=== PATIENT | male | born 1950 ===

== ENCOUNTER 2016-08-09 10:57 | Emergency (ER) | payer BC ==
[2016-08-09 11:10] VITALS: BMI 28.4
[2016-08-09 11:11] VITALS: RESP 18; O2SAT 97
--- NOTE | 2016-08-09 11:54 | C.PDOC ---
History Of Present Illness 66 y/o male with no known medical problems c/o mostly dry cough x 1 week with shortness of breath. pt denies fever and chills, no chest pain. pt is not a smoker. denies sore throat, myalgias,ear pain. and pt also c/o bilateral lower back pain for 2-3 weeks that is worse with movement, no numbness or tingling. no trauma. Time Seen by Provider: 08/09/16 11:13 Chief Complaint (Nursing): Cough, Cold, Congestion History Per: Patient History/Exam Limitations: no limitations Onset/Duration Of Symptoms: Days (7) Current Symptoms Are (Timing): Still Present Associated Symptoms: denies: Fever, Chills, Sore Throat Past Medical History Reviewed: Historical Data, Nursing Documentation, Vital Signs Vital Signs: Last Vital Signs Temp 98.4 F 08/09/16 11:10 Pulse 98 H 08/09/16 11:10 Resp 18 08/09/16 11:10 BP 133/83 08/09/16 11:10 Pulse Ox 97 08/09/16 13:07 - Medical History PMH: No Chronic Diseases Surgical History: No Surg Hx Family History: States: Unknown Family Hx - Social History Hx Tobacco Use: No Hx Alcohol Use: No Hx Substance Use: No - Immunization History Hx Tetanus Toxoid Vaccination: No Hx Influenza Vaccination: No Hx Pneumococcal Vaccination: No Review Of Systems Constitutional: Negative for: Fever, Chills ENT: Positive for: Other (hoarse voice). Negative for: Ear Pain, Nose Discharge , Mouth Pain, Throat Pain Cardiovascular: Negative for: Chest Pain Respiratory: Positive for: Cough, Shortness of Breath. Negative for: Hemoptysis , Pleuritic Pain Gastrointestinal: Negative for: Nausea, Vomiting, Abdominal Pain Skin: Negative for: Rash Neurological: Negative for: Weakness, Numbness Physical Exam - Physical Exam Appears: Non-toxic, No Acute Distress Skin: Normal Color, Warm, Dry Head: Atraumatic, Normacephalic Ear(s): Left: TM Dull, Right: TM Obscured By Wax Nose: Normal, No Discharge Oral Mucosa: Moist Tongue: Normal Appearing Lips: Normal Appearing Throat: Normal, No Erythema, No Exudate Neck: Normal ROM Chest: Symmetrical, No Deformity, No Tenderness Cardiovascular: Rhythm Regular, No Murmur Respiratory: No Accessory Muscle Use, No Rales, No Rhonchi, No Stridor, No Wheezing, Other (mild prolonged expiratory sounds) Gastrointestinal/Abdominal: Normal Exam, Soft, No Tenderness Back: Normal Inspection, No Vertebral Tenderness, No Paraspinal Tenderness Extremity: No Pedal Edema, No Calf Tenderness Neurological/Psych: Oriented x3, Normal Speech, Normal Cognition, Normal Motor, Normal Sensation ED Course And Treatment O2 Sat by Pulse Oximetry: 97 - Other Rad CXR X-Ray: Viewed By Me, Read By Radiologist Interpretation: HISTORY: Shortness of breath. Dry cough. COMPARISON: No prior. TECHNIQUE: Chest PA and lateral. FINDINGS: LUNGS: No focal infiltrate or effusion. Mild right hilar prominence. Small nodular density at the left lung base may represent confluence of shadows with ribs and vessels. Correlation with prior study if available may be helpful. PLEURA: No significant pleural effusion identified. No pneumothorax apparent. CARDIOVASCULAR: Normal. OSSEOUS STRUCTURES: No significant abnormalities. VISUALIZED UPPER ABDOMEN: Normal. OTHER FINDINGS: None. IMPRESSION: No focal infiltrate or effusion. Mild right hilar prominence. Small nodular density at the left lung base may represent confluence of shadows with ribs and vessels. Correlation with prior study if available may be helpful. Medical Decision Making Medical Decision Making: pt to go for cxr; 1257 pm; cxr neg for infliltrate and effusion; small nodular density seen in left lung base; radiologist recommends correlation with prior study, none available. pt informed of finding and advised to f/u in Medical clinic for general check up and repeat chest xray. Disposition Counseled Patient/Family Regarding: Studies Performed, Diagnosis, Need For Followup - Disposition Referrals: [facility] [Outside] [facility] [Outside] Disposition: HOME/ ROUTINE Disposition Time: 13:04 Condition: GOOD Additional Instructions: Hogan radiografa de trax no muestra infeccin que requiera antibiticos. Hay jesus pequea densidad observada en el pulmn inferior diane; Recomendar comparar con un estudio previo. Ya que no hay ningn estudio previo disponible, se recomienda que usted whitney un seguimiento en la [facility] en la prxima semana para jesus evaluacin adicional de la tos y para jesus repeticin de la radiografa de trax Instructions: Acute Bronchitis (ED) Forms: Gen Discharge Inst Jordanian Print Language: SYRIAC - Clinical Impression Clinical Impression: Bronchitis
--- NOTE | 2016-08-09 12:47 | RAD ---
HISTORY: Shortness of breath. Dry cough. COMPARISON: No prior. TECHNIQUE: Chest PA and lateral FINDINGS: LUNGS: No focal infiltrate or effusion. Mild right hilar prominence. Small nodular density at the left lung base may represent confluence of shadows with ribs and vessels. Correlation with prior study if available may be helpful. PLEURA: No significant pleural effusion identified. No pneumothorax apparent. CARDIOVASCULAR: Normal. OSSEOUS STRUCTURES: No significant abnormalities. VISUALIZED UPPER ABDOMEN: Normal. OTHER FINDINGS: None. IMPRESSION: No focal infiltrate or effusion. Mild right hilar prominence. Small nodular density at the left lung base may represent confluence of shadows with ribs and vessels. Correlation with prior study if available may be helpful.
[2016-08-09 14:14] VITALS: BP 128/78; PULSE 92; TEMP 98.1
== END 2016-08-09 13:15 | disposition home or self-care (01) ==
LOC: C.ER 10:57
DX: J40 Bronchitis, not specified as acute or chronic (principal)

== ENCOUNTER 2016-09-17 13:36 | Inpatient (IN) | payer BC ==
[2016-09-17 13:50] VITALS: BMI 21.3
[2016-09-17] MEDS ORDERED: Sodium Chloride 0.9% 500 ML IV ONE (15:01)
--- NOTE | 2016-09-17 15:11 | C.PDOC ---
Addendum entered and electronically signed by Eliza Feliciano PA 09/17/16 19: 02: Addendum Addendum: 09/17/16 19:02 EKG: NSR [address] elevations Original Note: History Of Present Illness <Eliza Feliciano - Last Filed: 09/17/16 19:02> <Rose Knapp - Last Filed: 09/17/16 20:51> 66 yr old male bought in by family member, presents to the ER stating for the past 2 weeks c/o SOB. Also notes patient notes decreased PO intake, only want to sleep. Recent diagnoses with Bronchitis. Currently patient is on [place] oxygen and states he feels better with it. Denies fever, chest pain, abd pain, rash, headache, weakness or numbness. (Eliza Feliciano) History Per: Patient, Family, Telephone Worker History/Exam Limitations: language barrier Onset/Duration Of Symptoms: Days (2 weeks) <Eliza Feliciano - Last Filed: 09/17/16 19:02> <Rose Knapp - Last Filed: 09/17/16 20:51> Time Seen by Provider: 09/17/16 14:42 Chief Complaint (Nursing): Shortness Of Breath Past Medical History Reviewed: Historical Data, Nursing Documentation, Vital Signs Family History: States: No Known Family Hx - Social History Hx Tobacco Use: No Hx Alcohol Use: No Hx Substance Use: No - Immunization History Hx Tetanus Toxoid Vaccination: No Hx Influenza Vaccination: No Hx Pneumococcal Vaccination: No <Eliza Feliciano - Last Filed: 09/17/16 19:02> Review Of Systems Except As Marked, All Systems Reviewed And Found Negative. Constitutional: Positive for: Weakness, Other ((+) Drowsy. ). Negative for: Fever Cardiovascular: Negative for: Chest Pain Respiratory: Positive for: Shortness of Breath Neurological: Negative for: Weakness, Numbness, Headache <Eliza Feliciano - Last Filed: 09/17/16 19:02> Physical Exam - Physical Exam Appears: No Acute Distress, Other ((+) Sleepy. 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, s/p trauma)) Nose: Normal Oral Mucosa: Moist Throat: Normal, No Erythema, No Exudate Neck: Normal ROM, Supple Chest: Symmetrical, No Tenderness Cardiovascular: Rhythm Regular, No Murmur Respiratory: Normal Breath Sounds, No Rales, No Rhonchi, No Wheezing Gastrointestinal/Abdominal: Normal Exam, Soft, No Tenderness Back: No CVA Tenderness, No Vertebral Tenderness Extremity: Normal ROM, No Swelling Neurological/Psych: Oriented x3, Normal Speech <Eliza Feliciano - Last Filed: 09/17/16 19:02> ED Course And Treatment - Laboratory Results Result Diagrams: 09/17/16 15:13 09/17/16 15:13 O2 Sat by Pulse Oximetry: 90 (RA) - Other Rad CXR X-Ray: Viewed By Me, Read By Radiologist Interpretation: HISTORY: Shortness of breath. COMPARISON: No prior. TECHNIQUE: Chest PA and lateral. FINDINGS: LUNGS: 08/09/2016 the lungs are well inflated and clear. PLEURA: No significant pleural effusion identified. No pneumothorax apparent. CARDIOVASCULAR: Normal. OSSEOUS STRUCTURES: No significant abnormalities. VISUALIZED UPPER ABDOMEN: Normal. OTHER FINDINGS: None. IMPRESSION: No active pulmonary disease. - CT Scan/US CT - Angio Chest Other Rad Studies (CT/US): Read By Radiologist, Radiology Report Reviewed CT/US Interpretation: CTA chest PE protocol. Indication: Shortness of breath, chest pain, upper back pain, weakness. Technique: Contiguous axial images were obtained through the chest with intravenous contrast enhancement. Sagittal and coronal reconstructions were generated and reviewed. This CT exam was performed using 1 or more of the falling dose reduction techniques: Automated exposure control, adjustment of the MAA and/or kV according to patient size, and /or use of iterative reconstruction technique. IV Contrast: 100 mL Visipaque. . Radiation dose (DLP): 510.32 MGy-cm. Comparison: Chest x-ray performed . Findings: Limited visualized portions of the inferior thyroid gland appear unremarkable. The mediastinal and hilar vascular structures appear within normal limits. The heart appears within normal limits of size. No large central or segmental pulmonary embolus evident. Mild left upper lobe and bibasilar atelectasis. No pleural effusion. No pneumothorax. 3 mm right middle lobe nodule appears intrafissural (series 4, image 57). Limited visualized portions of the upper abdomen demonstrates hypoattenuation of the liver consistent with hepatic steatosis. Several low-density lesions within the liver , possibly cysts or hemangiomas; dedicated liver protocol may be considered for more definitive characterization. Mild degenerative changes of the spine. Impression: No large central or segmental pulmonary embolus identified. Mild left upper lobe and bibasilar atelectasis. 3 mm right middle lobe nodule appears intrafissural. Hepatic steatosis. Several low-density lesions within the liver, possibly cysts or hemangiomas; dedicated liver protocol may be considered for more definitive characterization. Progress Note: PLAN: CT - Angio Chest, CXR, EKG, ABG, VBG, Drug Screen, Troponin , D-Dimer, CBC, CMP, Urinalysis & Sodium Chloride IV. Pt seen and evaluated by Dr Villa, agreed upon plan and treatment. Case dsicussed with Dr Leal, request ABG and ICU consult. Case endorse to dr Luz pending ABG and dispo <Eliza Feliciano - Last Filed: 09/17/16 19:02> - Laboratory Results Result Diagrams: 09/17/16 15:13 09/17/16 15:13 Pulse Ox Interpretation: Abnormal Progress Note: spoke with dr matthew and dr peñaloza for icu admission. Both at bedside with the patient. <Rose Knapp - Last Filed: 09/17/16 20:51> Disposition - Disposition Disposition Time: 19:01 <Eliza Feliciano - Last Filed: 09/17/16 19:02> <Rose Knapp - Last Filed: 09/17/16 20:51> - Disposition Disposition: HOSPITALIZED Condition: STABLE - Clinical Impression Clinical Impression: Hypoxia - PA / MOSAIC TECHNICIAN / Resident Statement MD/DO has reviewed & agrees with the documentation as recorded. - Scribe Statement The provider has reviewed the documentation as recorded by the Scribe <Eliza Feliciano - Last Filed: 09/17/16 19:02> <Rose Knapp - Last Filed: 09/17/16 20:51> - Scribe Statement Lena Rodrigeuz All medical record entries made by the Scribe were at my direction and personally dictated by me. I have reviewed the chart and agree that the record accurately reflects my personal performance of the history, physical exam, medical decision making, and the department course for this patient. I have also personally directed, reviewed, and agree with the discharge instructions and disposition. (Eliza Feliciano)
[2016-09-17 15:17] LABS: BASO % 0.3 % (0.0-2.0); EOS % 0.2 % (0.0-4.0); HEMATOCRIT 41.6 % (35.0-51.0); LYMPH # 1.1 K/uL (1.0-4.3); LYMPH % 15.3 % (20.0-40.0); MEAN CELL VOLUME 92.7 fL (80.0-94.0); MEAN CORPUSCULAR HEMOGLOBIN 29.4 pg (27.0-31.0); MEAN CORPUSCULAR HGB CONC 31.7 g/dL (33.0-37.0); MONO # 0.6 K/uL (0.0-0.8); RED CELL DISTRIBUTION WIDTH 13.8 % (11.5-14.5); WHITE BLOOD COUNT 7.3 K/uL (4.8-10.8)
[2016-09-17] MEDS ORDERED: Sodium Chloride 0.9% 1,000 ML ONE (15:27)
[2016-09-17 15:29] LABS: VENOUS BLOOD GAS BASE EXCESS 14.2 mmol/L (0.0-2.0); VENOUS BLOOD GAS PCO2 112 mmHg (40-60); VENOUS BLOOD PH 7.23 (7.32-7.43)
[2016-09-17 15:36] LABS: CHLORIDE 90 mmol/L (98-107)
[2016-09-17 15:36] LABS: RBC URINE < 1 /hpf (0-3); URINE BILIRUBIN NEGATIVE (NEGATIVE); URINE BLOOD NEGATIVE (NEGATIVE); URINE COLOR Yellow (YELLOW); URINE GLUCOSE (UA) NORMAL (Normal); URINE KETONE NEGATIVE (NEGATIVE); URINE LEUKOCYTE ESTERASE NEG Leu/uL (Negative); URINE PROTEIN NEGATIVE (NEGATIVE); URINE UROBILINOGEN NORMAL mg/dL (0.2-1.0); WBC URINE 1 /hpf (0-5)
[2016-09-17 15:37] LABS: POTASSIUM 4.3 mmol/L (3.6-5.2); SODIUM 134 mmol/L (132-148)
[2016-09-17 15:39] LABS: ALB/GLOB RATIO 1.3 (1.0-2.1); ALKALINE PHOSPHATASE 59 U/L (38-126); AST/SGOT 43 U/L (17-59); BILIRUBIN,TOTAL 0.6 mg/dL (0.2-1.3); BLOOD UREA NITROGEN 12 mg/dL (9-20); GFR AFRICAN-AMERICAN > 60; TOTAL PROTEIN 6.6 g/dL (6.3-8.3)
[2016-09-17 15:40] LABS: ALT/SGPT 25 U/L (21-72); CALCIUM 8.4 mg/dl (8.6-10.4); GLUCOSE,RANDOM 107 mg/dL (75-110)
[2016-09-17 15:51] LABS: CARBON DIOXIDE 39 mmol/L (22-30)
--- NOTE | 2016-09-17 16:12 | RAD ---
HISTORY: Shortness of breath COMPARISON: No prior. TECHNIQUE: Chest PA and lateral FINDINGS: LUNGS: 08/09/2016 the lungs are well inflated and clear. PLEURA: No significant pleural effusion identified. No pneumothorax apparent. CARDIOVASCULAR: Normal. OSSEOUS STRUCTURES: No significant abnormalities. VISUALIZED UPPER ABDOMEN: Normal. OTHER FINDINGS: None. IMPRESSION: No active pulmonary disease.
[2016-09-17] MEDS ORDERED: Iodixanol 320 MG/ML 100 ML BOTTLE IV ONE (17:43)
--- NOTE | 2016-09-17 18:29 | CT ---
CTA chest PE protocol Indication: Shortness of breath, chest pain, upper back pain, weakness Technique: Contiguous axial images were obtained through the chest with intravenous contrast enhancement. Sagittal and coronal reconstructions were generated and reviewed. This CT exam was performed using 1 or more of the falling dose reduction techniques: Automated exposure control, adjustment of the MAA and/or kV according to patient size, and/or use of iterative reconstruction technique. IV Contrast: 100 mL Visipaque Radiation dose (DLP): 510.32 MGy-cm. Comparison: Chest x-ray performed 09/17/16 Findings: Limited visualized portions of the inferior thyroid gland appear unremarkable. The mediastinal and hilar vascular structures appear within normal limits. The heart appears within normal limits of size. No large central or segmental pulmonary embolus evident. Mild left upper lobe and bibasilar atelectasis. No pleural effusion. No pneumothorax. 3 mm right middle lobe nodule appears intrafissural (series 4, image 57). Limited visualized portions of the upper abdomen demonstrates hypoattenuation of the liver consistent with hepatic steatosis. Several low-density lesions within the liver, possibly cysts or hemangiomas; dedicated liver protocol may be considered for more definitive characterization. Mild degenerative changes of the spine. Impression: No large central or segmental pulmonary embolus identified. Mild left upper lobe and bibasilar atelectasis. 3 mm right middle lobe nodule appears intrafissural. Hepatic steatosis. Several low-density lesions within the liver, possibly cysts or hemangiomas; dedicated liver protocol may be considered for more definitive characterization.
[2016-09-17 19:13] LABS: ABG ALLEN TEST POS; DRAW SITE RRA
[2016-09-17 21:06] LABS: ABG ALLEN TEST POS; DRAW SITE RRA
[2016-09-17 21:31] LABS: THYROID STIMULATING HORMONE 1.95 mIU/L (0.46-4.68)
--- NOTE | 2016-09-17 21:49 | CP.PCM.CON ---
History of Present Illness - History of Present Illness History of Present Illness: 66 yr old male with no significant PMH,not n meds bought to ER by family for worsening difficulty breathing for the past 2 weeks .Patients apetite has been poor,feeling weak and sleepy. Recent diagnoses with Bronchitis. Denies fever, chest pain, abdominal pain, diarrhea,rash, headache, or numbness. 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 absent: Chills, Fever, Frequent Falls, Headache - EENT Eyes: Loss of Vision. absent: Diplopia, Pain Ears: absent: Decreased Hearing Nose/Mouth/Throat: absent: Nasal Congestion, Post Nasal Drip, Facial Pain, Neck Pain Additional comments: loss of vision left eye >10 yrs - Cardiovascular Cardiovascular: Dyspnea on Exertion. absent: Chest Pain, Edema, Palpitations - Respiratory Respiratory: Cough, Dyspnea. absent: Hemoptysis - Gastrointestinal Gastrointestinal: absent: Abdominal Pain, Constipation, Diarrhea, Fecal Incontinence - Genitourinary Genitourinary: absent: Urinary Incontinence - Musculoskeletal Musculoskeletal: Back Pain. absent: Joint Swelling, Myalgias, Neck Pain, Numbness, Radiating Pain into Limb, Stiffness - Integumentary Integumentary: Bleeding Lesions, Photosensitivity - Neurological Neurological: Weakness. absent: Abnormal Movements, Abnormal Speech, Frequent Falls, Tingling, Vertigo - Endocrine Endocrine: absent: Cold Intolorance, Heat Intolorance - Hematologic/Lymphatic Hematologic: absent: Easy Bleeding Past Patient History - Past Medical History & Family History Past Medical History?: No - Past Social History Smoking Status: Never Smoked Cigar Use: No Alcohol: None Drugs: Denies Home Situation {Lives}: With Family - PSYCHIATRIC Hx Substance Use: No - SURGICAL HISTORY Hx Surgeries: Yes Hx Eye Surgery: Yes (Lt eye) - ANESTHESIA Hx Anesthesia: Yes Hx Anesthesia Reactions: No Meds Allergies/Adverse Reactions: Allergies Allergy/AdvReac Type Severity Reaction Status Date / Time No Known Allergies Allergy Verified 09/17/16 13:49 Physical Exam - Constitutional Appears: In Acute Distress Additional comments: In Er patient drowsy but arousable answering question.In ICU agitated not keeping Oxygen or BIOAP mask on - Head Exam Head Exam: ATRAUMATIC, NORMAL INSPECTION, NORMOCEPHALIC - Eye Exam Eye Exam: absent: Conjunctival injection, Nystagmus, Scleral icterus Additional comments: Left eye lid drooping,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 absent: Chest Wall Tenderness - Cardiovascular Exam Cardiovascular Exam: REGULAR RHYTHM - GI/Abdominal Exam GI & Abdominal Exam: Normal Bowel Sounds, Soft. absent: Organomegaly, Tenderness - Rectal Exam Rectal Exam: Deferred - Extremities Exam Extremities exam: Positive for: normal inspection, pedal pulses present. Negative for: calf tenderness, joint swelling, pedal edema - Back Exam Back exam: NORMAL INSPECTION. absent: CVA tenderness (L) - Neurological Exam Neurological exam: Alert Additional comments: fasciculations upper chest DTR mildly exaggerated moves all extremities no motor weakness - Skin Skin Exam: Dry, Normal Color Results - Vital Signs Recent Vital Signs: Last Vital Signs Temp 98.9 F 09/17/16 13:50 Pulse 81 09/17/16 17:38 Resp 12 09/17/16 17:38 BP 133/89 09/17/16 17:38 Pulse Ox 90 L 09/17/16 19:01 - Labs Result Diagrams: 09/23/16 08:22 09/23/16 08:22 Labs: Laboratory Results - last 24 hr 09/17/16 21:00 Puncture Site Rra pCO2 117 H* pO2 80 HCO3 33.8 H ABG pH 7.19 L* ABG Total CO2 48.3 H ABG O2 Saturation 95.9 ABG Base Excess 11.5 H Piotr Test Pos ABG Potassium 4.2 A-a O2 Difference -12.0 Respiratory Index -0.2 Sodium 135.0 Chloride 98.0 Glucose 103 Lactate 0.3 L FiO2 30.0 Inspiratory BiPAP 12 Expiratory BiPAP 5 Crit Value Called To Dr fernandez Crit Value Called By Minda mak Crit Value Read Back Y Blood Gas Notified Time 2104 Arterial Blood Potassium 4.2 - EKG Data EKG Interpreted by: Myself EKG shows normal: Sinus rhythm Rate: Normal - Imaging and Cardiology CT scan - abdomen Status: Report reviewed by me CT scan - chest Status: Image reviewed by me, Report reviewed by me Chest x-ray Status: Image reviewed by me, Report reviewed by me CT scan - head Status: Image reviewed by me, Report reviewed by me Assessment & Plan - Assessment and Plan (Free Text) Assessment: 1.Hypercapnic Respiratory Failure unknown eitiology-required intubation CT head no acute abnormality.CT chest Mid left upper lobe and bibasilar atelectasis normal TSH,random cortisol Discussed with neurologist,patient will be seen tomorrow for possible neromuscular eitiolgy Continue Ventilatory support
--- NOTE | 2016-09-17 22:09 | CP.PCM.HP ---
History of Present Illness - History of Present Illness History of Present Illness: COMPREHENSIVE HISTORY & PHYSICAL EXAM HPI PT PRESENTED TO ER WITH LETHARGY AND SOMNELENCE . INVESTIGATION REVEALED ACUTE CO2 RETENSION WITH NORMAL CXR . THERE IS NO OTHER HISTORY AVAILABLE AT THIS TIME PAST HIST. PERSONAL HIST: Smoking. N Alcohol. N Allergy N Travel_- . FAMILY HIST : ROS : PT DROSWSY AND CAN NOT ELICITE P/E: Constitutional: Appears stated age and DROWSY Head: Normocephalic. Ears: External ear canals patent without inflammation. Tympanic membranes intact with normal light reflex and landmark. Eyes: Pupils are central, bilaterally equal, symmetrical and reacts to light with normal movements and no icterus or pallor. Nose: External nares are patent. Mucosa is pink Mouth-Throat: Good general appearance and condition. No post-pharyngeal/oropharyngeal erythema and tonsillar hypertrophy. Good dental hygiene. Neck-Lymphatic: Neck is supple with normal ROM, no thyromegaly, lymph nodes or masses. JVD is normal with no carotid bruit. Lungs: Clear to percussion and auscultation with bilateral normal air entry. Cardiovascular: S1 and S2 are normal with no murmurs, gallops and rub. GI Exam: No hepatomegaly. Abdomen is soft and non-tender. No Organomegaly , masses or hernias are evident and bowel sounds are normal and active. Neurology: Higher function and all cranial nerves intact, with no gross motor or sensory deficit. Superficial and deep reflexes are normal with downwards planters. No cerebellar deficit with normal gait. Musculoskeletal: No tender spots with normal curvature of the spine with no swelling or restricted ROM of the small and large joints. Extremities: Homans sign absent. Intact pulses with no pitting edema, calf tenderness or skin color changes. Skin: No rash, eruptions or abnormal skin pigmentation LAB/RADIOLOGY: ASSESMENT : ACUTE RESPIRATORY HYPERCARBIA , ETIOLOGY UNCLEAR PLAN: MAY NEED INTUBATION Present on Admission - Present on Admission Any Indicators Present on Admission: No Past Patient History - Past Social History Smoking Status: Never Smoked - PSYCHIATRIC Hx Substance Use: No - SURGICAL HISTORY Hx Surgeries: Yes Hx Eye Surgery: Yes (Lt eye) - ANESTHESIA Hx Anesthesia: Yes Hx Anesthesia Reactions: No Meds Allergies/Adverse Reactions: Allergies Allergy/AdvReac Type Severity Reaction Status Date / Time No Known Allergies Allergy Verified 09/17/16 13:49 Results - Vital Signs Recent Vital Signs: Last Vital Signs Temp 98.9 F 09/17/16 13:50 Pulse 81 09/17/16 17:38 Resp 12 09/17/16 17:38 BP 133/89 09/17/16 17:38 Pulse Ox 90 L 09/17/16 19:01 - Labs Result Diagrams: 09/18/16 06:29 09/18/16 06:29 Labs: Laboratory Results - last 24 hr 09/17/16 21:00 Puncture Site Rra pCO2 117 H* pO2 80 HCO3 33.8 H ABG pH 7.19 L* ABG Total CO2 48.3 H ABG O2 Saturation 95.9 ABG Base Excess 11.5 H Piotr Test Pos ABG Potassium 4.2 A-a O2 Difference -12.0 Respiratory Index -0.2 Sodium 135.0 Chloride 98.0 Glucose 103 Lactate 0.3 L FiO2 30.0 Inspiratory BiPAP 12 Expiratory BiPAP 5 Crit Value Called To Dr fernandez Crit Value Called By Minda mak Crit Value Read Back Y Blood Gas Notified Time 2104 Arterial Blood Potassium 4.2
[2016-09-17] MEDS ORDERED: Propofol 10 mg/ml Inj (20 ML) ONE (22:33)
[2016-09-17] MEDS ORDERED: Midazolam 2 MG/2 ML VIAL IVP ONE (22:38)
[2016-09-17] MEDS ORDERED: Midazolam 2 MG/2 ML VIAL ONE (22:38)
[2016-09-17] MEDS ORDERED: Propofol 10 mg/ml Inj (20 ML) IV ONE (22:39)
--- NOTE | 2016-09-17 22:49 | PCM.ANES ---
Anesthesia Emergent Intubation - Diagnosis Working Diagnosis:: Hypercapnic respiratory failure - Intubation Attempts Previous Number of Intubation Attempts:: 1 - Pre-Intubation Vital Signs Blood Pressure: 138/82 Heart Rate: 98 Respiratory Rate: 24 O2 Sat: 99 Oxygen Delivery Method: Nasal Cannula Level Of Consciousness: Alert Intubation Meds Given: Versed, Propofol - Airway Management Oropharyngeal Area Suctioned: No - Method of Intubation Intubation Method: Oral ETT ETT Size: 8.0 Easy: Yes Atramatic: Yes - Intubation Devices Sarath Blade Size Used: 3 - Placement Confirmation Breath Sounds Present & Equal Bilaterally: Yes
--- NOTE | 2016-09-17 22:54 | CT ---
EXAM: CT Head Without Intravenous Contrast CLINICAL HISTORY: 66 years old, male; Signs and symptoms; Altered mental status/memory loss; Additional info: Change ms TECHNIQUE: Axial computed tomography images of the head/brain without intravenous contrast. This CT exam was performed using one or more of the following dose reduction techniques: automated exposure control, adjustment of the mA and/or kV according to patient size, and/or use of iterative reconstruction technique. EXAM DATE/TIME: 09/17/2016 8:11 PM COMPARISON: There are no prior studies for comparison. FINDINGS: Brain: Ventricles are normal in size and configuration. There is no midline shift. There is mild prominence of sulci and gyri. There are no intra-axial or extra-axial mass lesions or areas of hemorrhage. There is contrast from a prior study of vascular structures. There are no abnormal fluid collections. Singer-white differentiation is maintained. Ventricles: See above. Bones: Cranial vault is intact. Soft tissues: unremarkable Sinuses: There is no acute sinusitis. 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 Ears and mastoids: Middle ears and mastoids are unremarkable Orbits: There are no acute orbital abnormalities. There are postsurgical changes about the left globe. IMPRESSION: No acute intracranial abnormality
--- NOTE | 2016-09-17 23:01 | CT ---
EXAM: CT Abdomen and Pelvis Without Intravenous Contrast CLINICAL HISTORY: 66 years old, male; Pain; Abdominal pain; Generalized; Additional info: Muscle weakness, hypoxia TECHNIQUE: Axial computed tomography images of the abdomen and pelvis without intravenous contrast. This CT exam was performed using one or more of the following dose reduction techniques: automated exposure control, adjustment of the mA and/or kV according to patient size, and/or use of iterative reconstruction technique. Coronal and sagittal reformatted images were created and reviewed. EXAM DATE/TIME: 09/17/2016 8:11 PM COMPARISON: There are no prior studies for comparison. FINDINGS: Artifacts: Motion artifact degrades image quality. Streak artifact degrades image quality. Lower thorax: Heart size is normal. There is a small hiatal hernia. There is atelectasis and scarring at the lung bases. ABDOMEN: Liver: There are multiple low attenuation hepatic lesions. Largest are consistent with cysts. Gallbladder and bile ducts: Gallbladder is collapsed. Common bile duct is unremarkable. Pancreas: Pancreas is mildly atrophic. Spleen: unremarkable Adrenals: unremarkable Kidneys and ureters: Kidneys are unremarkable. There is contrast from a prior study in nondilated collecting systems and ureters. Stomach and bowel: Stomach is partially distended. Rotation is normal. Proximal and mid small bowel are mildly distended. Distention decreases distally. Appendix is unremarkable. Terminal ileum is unremarkable. There is moderate stool in the colon. There is mild right colon wall thickening.There is a fecal bolus in the rectum. Appendix: See above. PELVIS: Bladder: Bladder is distended with contrast. Reproductive: Prostate is enlarged. There is prominence of the seminal vesicles. ABDOMEN and PELVIS: Intraperitoneal space:There is no free air or free fluid. Bones/joints: There are degenerative changes in the osseus structures. There is retrolisthesis L5 on S1. There is asymmetric L5-S1 disc space narrowing. Soft tissues: unremarkable Vasculature: There are multiple phleboliths. There are vascular calcifications. Lymph nodes: There is no pathologic adenopathy. IMPRESSION: No acute solid visceral abnormality; no bowel obstruction; mild right colon wall thickening, underdistention versus inflammation; fecal impaction; enlarged prostate
[2016-09-17] MEDS: Dexmedetomidine Hydrochloride 200 MCG in Sodium Chloride 0.9% 48 ML IV PRN (23:10)
[2016-09-17] MEDS ORDERED: Calcium Gluconate 4.65 mEq/10 ml Inj IV ONE (23:25)
[2016-09-17] MEDS ORDERED: Dextrose 5%/0.9% NS 1,000 ML IV ONE (23:25)
[2016-09-17] MEDS ORDERED: (Novolin R) Insulin Human Regular 100 units/ml vial SC SCH (23:30)
[2016-09-17] MEDS: Propofol 10 mg/ml 1,000 MG/100 ML VIAL IV PRN (23:30)
[2016-09-17 23:57] LABS: ABG ALLEN TEST POS; ABG MECHANICAL RATE 22; ARTERIAL BLOOD HGB O2 SAT 95.7 % (95.0-98.0); ATERIAL BLOOD GAS PEEP 5; CARBOXYHEMOGLOBIN 0.9 % (0.5-1.5); DRAW SITE RR; HHB 2.1 % (0.0-5.0); METHEMOGLOBIN 1.3 % (0.0-3.0)
[2016-09-18] MEDS: Dexmedetomidine Hydrochloride 200 MCG in Sodium Chloride 0.9% 48 ML IV PRN ×4 (02:54→22:55)
[2016-09-18 05:25] LABS: ABG ALLEN TEST POS; ABG MECHANICAL RATE 14; ARTERIAL BLOOD HGB O2 SAT 93.8 % (95.0-98.0); ATERIAL BLOOD GAS PEEP 5; CARBOXYHEMOGLOBIN 1.1 % (0.5-1.5); DRAW SITE RR; METHEMOGLOBIN 1.1 % (0.0-3.0)
[2016-09-18] MEDS: (Novolin R) Insulin Human Regular 100 units/ml vial SC SCH ×4 (06:00→18:21)
[2016-09-18 06:37] LABS: BASO % 0.2 % (0.0-2.0); HEMATOCRIT 39.3 % (35.0-51.0); LYMPH # 0.8 K/uL (1.0-4.3); LYMPH % 6.8 % (20.0-40.0); MEAN CELL VOLUME 93.1 fL (80.0-94.0); MEAN CORPUSCULAR HEMOGLOBIN 30.3 pg (27.0-31.0); MEAN CORPUSCULAR HGB CONC 32.5 g/dL (33.0-37.0); MEAN PLATELET VOLUME 8.9 fL (7.2-11.7); MONO # 0.7 K/uL (0.0-0.8); MONO % 6.3 % (0.0-10.0); PLATELET COUNT 166 K/uL (130-400); RED CELL DISTRIBUTION WIDTH 13.8 % (11.5-14.5); WHITE BLOOD COUNT 11.3 K/uL (4.8-10.8)
[2016-09-18 06:47] LABS: CHLORIDE 91 mmol/L (98-107); SODIUM 132 mmol/L (132-148)
[2016-09-18 06:48] LABS: POTASSIUM 3.7 mmol/L (3.6-5.2)
[2016-09-18 06:50] LABS: ALB/GLOB RATIO 1.3 (1.0-2.1); ALKALINE PHOSPHATASE 62 U/L (38-126); AST/SGOT 27 U/L (17-59); BLOOD UREA NITROGEN 11 mg/dL (9-20); CARBON DIOXIDE 33 mmol/L (22-30); GFR AFRICAN-AMERICAN > 60; GLUCOSE,RANDOM 120 mg/dL (75-110); PHOSPHOROUS 1.9 mg/dL (2.5-4.5); TOTAL PROTEIN 5.9 g/dL (6.3-8.3)
[2016-09-18 06:51] LABS: ALT/SGPT 29 U/L (21-72); CALCIUM 8.4 mg/dl (8.6-10.4); MAGNESIUM 1.9 mg/dL (1.6-2.3)
[2016-09-18 07:15] LABS: CARCINOEMBRYONIC ANTIGEN 1.7 ng/mL (0-3.0)
[2016-09-18] MEDS ORDERED: Magnesium Sulfate 1 gm in D5W 1 GM/100 ML BAG IVPB ONE (08:14)
[2016-09-18 08:47] LABS: ABG ALLEN TEST POS; ABG MECHANICAL RATE 12; ARTERIAL BLOOD HGB O2 SAT 96.2 % (95.0-98.0); ATERIAL BLOOD GAS PEEP 5; CARBOXYHEMOGLOBIN 1.1 % (0.5-1.5); DRAW SITE RR; HHB 1.5 % (0.0-5.0); METHEMOGLOBIN 1.2 % (0.0-3.0)
[2016-09-18 08:57] LABS: MAGNESIUM 1.9 mg/dL (1.6-2.3)
[2016-09-18 09:40] LABS: NEUTROPHIL 86 % (50-75); TOTAL CELLS COUNTED 100
[2016-09-18] MEDS: Propofol 10 mg/ml 1,000 MG/100 ML VIAL IV PRN (09:41)
[2016-09-18] MEDS ORDERED: Sodium Phosphate 15 MMOLE in Sodium Chloride 0.9% 250 ML IVPB ONE (10:00)
[2016-09-18] MEDS ORDERED: Sodium Chloride 0.9% 1,000 ML IV ONE (11:03)
[2016-09-18 11:04] LABS: ERYTHROCYTE SEDIMENTATION RATE 3 mm/hr (0-15)
[2016-09-18] MEDS ORDERED: Albuterol-Ipratrop 3 mg / 0.5 (3 ml) UD INH PRN (11:29)
[2016-09-18] MEDS ORDERED: Enoxaparin 40 mg Syringe SC ONE (11:30)
--- NOTE | 2016-09-18 11:50 | CP.CCUPN ---
<Rohan Coleman - Last Filed: 09/18/16 11:40> CCU Subjective - Physician Review Subjective (Free Text): 09/18/16 11:40 Patient seen and examined at the bedside. No acute distress. No acute events overnight. Nursing staff reports no issues. The patient was intubated 2/2 to hypercarbia and non-compliance with BiPAP. The patient is currently on sedation. PRVC 400mL, 12/min, 5, 30%. Today on rounds, the patient's vent setting were changed. The TV was increased to 450mL and the respiratory rate was increased to 14/min. The patient's mag and phos were also replaced. Post rounds, the patient was noted to be hypotensive. The patient was started on IVF for fluid challenge. The patient was also given solu-medrol 125mg IV stat and a scheduled dose of solu-medrol 40mg IV q8. The patient was also started on tube feeds with a rate of 30ml/hr. Nutrition was consulted for a goal rate. CCU Objective - Vital Signs / Intake & Output Vital Signs (Last 4 hours): Vital Signs Temp Pulse Resp BP Pulse Ox 09/18/16 10:00 76 11 L 85/54 L 09/18/16 09:57 78 14 89/56 L 100 09/18/16 09:45 79 14 81/54 L 100 09/18/16 09:00 89 12 100 09/18/16 08:00 99.5 F 86 11 L 100 09/18/16 07:57 89 12 105/73 100 Intake and Output (Last 8hrs): Intake & Output 09/17/16 09/18/16 09/18/16 22:59 06:59 14:59 Intake Total 0 928.0 1677.6 Output Total 0 785 315 Balance 0 143.0 1362.6 Weight 62.1 kg Intake: IV 91 109 Intake, IV Amount 0 837.0 1568.6 Left Antecubital 0 700 1400 Left Forearm 70.0 39.0 Right Wrist 100 left arm 67.0 29.6 Oral 0 Output: Urine 785 315 Urethral (Esquivel) 785 315 Stool 0 0 0 - Physical Exam Head: Positive for: Atraumatic, Normocephalic, Other (ET Tube in place) Conjunctiva: Positive for: Normal Mouth: Positive for: Moist Mucous Membranes Nose (External): Positive for: Atraumatic Neck: Negative for: JVD, Lymphadenopathy Respiratory/Chest: Positive for: Clear to Auscultation, Good Air Exchange. Negative for: Respiratory Distress, Accessory Muscle Use, Wheezes, Decreased Breath Sounds, Rales, Rhonchi, Tachypneic Cardiovascular: Positive for: Regular Rate and Rhythm, Normal S1, S2, Peripheal Pulses Present. Negative for: Murmurs Abdomen: Positive for: Normal Bowel Sounds. Negative for: Tenderness, Distention, Peritoneal Signs Upper Extremity: Positive for: Normal Inspection. Negative for: Cyanosis, Edema Lower Extremity: Positive for: Normal Inspection. Negative for: Edema Skin: Positive for: Warm, Dry, Normal Color. Negative for: Rashes - Medications Active Medications: Active Medications Generic Name Dose Route Start Last Admin Trade Name Freq PRN Reason Stop Dose Admin Albuterol/Ipratropium 3 ml 09/18/16 14:00 Duoneb 3 Mg/0.5 Mg (3 Ml) Ud INH RQ6 ASA Albuterol/Ipratropium 3 ml 09/18/16 11:29 Duoneb 3 Mg/0.5 Mg (3 Ml) Ud INH RQ2 PRN Shortness of Breath Dexmedetomidine HCl 200 mcg/ 50 mls @ 2.99 mls/hr 09/17/16 22:57 09/18/16 10: 56 Sodium Chloride IV 0.5 mcg/kg/hr TITR PRN 7.48 mls/hr Agitation Administration Protocol 0.2 MCG/KG/HR Propofol 1,000 mg in 100 mls @ 1.796 mls/hr 09/17/16 23:15 09/18/16 09:41 Diprivan IV 30 mcg/kg/min .Q24H PRN 10.777 mls/hr TITRATE PER MD ORDER Administration Protocol 5 MCG/KG/MIN Sodium Phosphate 15 mmole/ 255 mls @ 42.5 mls/hr 09/18/16 10:00 09/18/16 09: 37 Sodium Chloride IVPB 09/18/16 15:59 42.5 mls/hr .Q6H ONE Administration Sodium Chloride 1,000 mls @ 1,000 mls/hr 09/18/16 11:03 Sodium Chloride 0.9% IV 09/18/16 12:02 .Q1H ONE Insulin Human Regular 0 unit 09/18/16 00:18 09/18/16 06:00 Novolin R SC Not Given Q6H [facility] Protocol Methylprednisolone 125 mg 09/18/16 11:30 Solu-Medrol IV 09/18/16 11:31 ONCE ONE Methylprednisolone 40 mg 09/18/16 14:00 Solu-Medrol IVP Q8 ASA Pantoprazole Sodium 40 mg 09/18/16 10:00 09/18/16 09:37 Protonix Inj IVP 40 mg DAILY [facility] Administration - Patient Studies Lab Studies: Lab Studies 09/18/16 09/18/16 09/18/16 Range/Units 08:42 08:11 06:32 WBC (4.8-10.8) K/uL RBC (4.40-5.90) Mil/uL Hgb (12.0-18.0) g/dL Hct (35.0-51.0) % MCV (80.0-94.0) fL MCH (27.0-31.0) pg MCHC (33.0-37.0) g/dL RDW (11.5-14.5) % Plt Count (130-400) K/uL MPV (7.2-11.7) fL Neut % (Auto) (50.0-75.0) % Lymph % (Auto) (20.0-40.0) % [place] % (Auto) (0.0-10.0) % Eos % (Auto) (0.0-4.0) % Baso % (Auto) (0.0-2.0) % Neut # (1.8-7.0) K/uL Lymph # (1.0-4.3) K/uL [place] # (0.0-0.8) K/uL Eos # (0.0-0.7) K/uL Baso # (0.0-0.2) K/uL Neutrophils % (Manual) (50-75) % Lymphocytes % (Manual) (20-40) % Monocytes % (Manual) (0-10) % Platelet Estimate (NORMAL) RBC Morphology ESR (0-15) mm/hr Puncture Site Rr pCO2 66 H (35-45) mm/Hg pO2 199 H (80-100) mm/Hg HCO3 31.7 H (21-28) mmol/L ABG pH 7.35 (7.35-7.45) ABG Total CO2 38.4 H (22-28) mmol/L ABG O2 Saturation 98.5 H (95-98) % ABG Base Excess 8.7 H (-2.0-3.0) mmol/L ABG Hemoglobin 11.8 (11.7-17.4) g/dL ABG Carboxyhemoglobin 1.1 (0.5-1.5) % POC ABG HHb (Measured) 1.5 (0.0-5.0) % ABG Methemoglobin 1.2 (0.0-3.0) % Piotr Test Pos ABG Potassium (3.6-5.2) mmol/L A-a O2 Difference 146.0 mm/Hg Respiratory Index 0.7 Hgb O2 Saturation 96.2 (95.0-98.0) % Sodium (132-148) mmol/l Chloride (98-107) mmol/L Glucose (75-110) mg/dl Lactate (0.7-2.1) mmol/L Mechanical Rate 12 FiO2 60.0 % Tidal Volume 400 PEEP 5 Inspiratory BiPAP Expiratory BiPAP Crit Value Called To Crit Value Called By Crit Value Read Back Blood Gas Notified Time Potassium (3.6-5.2) mmol/L Carbon Dioxide (22-30) mmol/L Anion Gap (10-20) BUN (9-20) mg/dL Creatinine (0.8-1.5) MG/DL Est GFR ( Amer) Est GFR (Non-Af Amer) POC Glucose (mg/dL) 136 H (65-110) mg/dL Random Glucose (75-110) mg/dL Calcium (8.6-10.4) mg/dl Phosphorus (2.5-4.5) mg/dL Magnesium 1.9 (1.6-2.3) mg/dL Total Bilirubin (0.2-1.3) mg/dL AST (17-59) U/L ALT (21-72) U/L Alkaline Phosphatase (38-126) U/L C-React Prot High Sens (1.00-3.00) mg/L Total Protein (6.3-8.3) g/dL Albumin (3.5-5.0) g/dL Globulin (2.2-3.9) gm/dL Albumin/Globulin Ratio (1.0-2.1) Carcinoembryonic Ag (0-3.0) ng/mL Prolactin 12.8 (3.7-17.9) ng/mL Arterial Blood Potassium (3.6-5.2) mmol/L 09/18/16 09/18/16 09/18/16 Range/Units 06:29 06:29 06:29 WBC 11.3 H D (4.8-10.8) K/uL RBC 4.22 L (4.40-5.90) Mil/uL Hgb 12.8 (12.0-18.0) g/dL Hct 39.3 (35.0-51.0) % MCV 93.1 (80.0-94.0) fL MCH 30.3 (27.0-31.0) pg MCHC 32.5 L (33.0-37.0) g/dL RDW 13.8 (11.5-14.5) % Plt Count 166 (130-400) K/uL MPV 8.9 (7.2-11.7) fL Neut % (Auto) 86.7 H (50.0-75.0) % Lymph % (Auto) 6.8 L (20.0-40.0) % [place] % (Auto) 6.3 (0.0-10.0) % Eos % (Auto) 0.0 (0.0-4.0) % Baso % (Auto) 0.2 (0.0-2.0) % Neut # 9.8 H (1.8-7.0) K/uL Lymph # 0.8 L (1.0-4.3) K/uL [place] # 0.7 (0.0-0.8) K/uL Eos # 0.0 (0.0-0.7) K/uL Baso # 0.0 (0.0-0.2) K/uL Neutrophils % (Manual) 86 H (50-75) % Lymphocytes % (Manual) 10 L (20-40) % Monocytes % (Manual) 4 (0-10) % Platelet Estimate Normal (NORMAL) RBC Morphology Normal ESR 3 (0-15) mm/hr Puncture Site pCO2 (35-45) mm/Hg pO2 (80-100) mm/Hg HCO3 (21-28) mmol/L ABG pH (7.35-7.45) ABG Total CO2 (22-28) mmol/L ABG O2 Saturation (95-98) % ABG Base Excess (-2.0-3.0) mmol/L ABG Hemoglobin (11.7-17.4) g/dL ABG Carboxyhemoglobin (0.5-1.5) % POC ABG HHb (Measured) (0.0-5.0) % ABG Methemoglobin (0.0-3.0) % Piotr Test ABG Potassium (3.6-5.2) mmol/L A-a O2 Difference mm/Hg Respiratory Index Hgb O2 Saturation (95.0-98.0) % Sodium 132 (132-148) mmol/l Chloride 91 L (98-107) mmol/L Glucose (75-110) mg/dl Lactate (0.7-2.1) mmol/L Mechanical Rate FiO2 % Tidal Volume PEEP Inspiratory BiPAP Expiratory BiPAP Crit Value Called To Crit Value Called By Crit Value Read Back Blood Gas Notified Time Potassium 3.7 (3.6-5.2) mmol/L Carbon Dioxide 33 H (22-30) mmol/L Anion Gap 12 (10-20) BUN 11 (9-20) mg/dL Creatinine 0.6 L (0.8-1.5) MG/DL Est GFR ( Amer) > 60 Est GFR (Non-Af Amer) > 60 POC Glucose (mg/dL) (65-110) mg/dL Random Glucose 120 H (75-110) mg/dL Calcium 8.4 L (8.6-10.4) mg/dl Phosphorus 1.9 L (2.5-4.5) mg/dL Magnesium 1.9 (1.6-2.3) mg/dL Total Bilirubin 1.0 (0.2-1.3) mg/dL AST 27 (17-59) U/L ALT 29 (21-72) U/L Alkaline Phosphatase 62 (38-126) U/L C-React Prot High Sens 1.42 (1.00-3.00) mg/L Total Protein 5.9 L (6.3-8.3) g/dL Albumin 3.4 L (3.5-5.0) g/dL Globulin 2.6 (2.2-3.9) gm/dL Albumin/Globulin Ratio 1.3 (1.0-2.1) Carcinoembryonic Ag 1.7 (0-3.0) ng/mL Prolactin (3.7-17.9) ng/mL Arterial Blood Potassium (3.6-5.2) mmol/L 09/18/16 09/18/16 09/17/16 Range/Units 05:17 00:21 23:53 WBC (4.8-10.8) K/uL RBC (4.40-5.90) Mil/uL Hgb (12.0-18.0) g/dL Hct (35.0-51.0) % MCV (80.0-94.0) fL MCH (27.0-31.0) pg MCHC (33.0-37.0) g/dL RDW (11.5-14.5) % Plt Count (130-400) K/uL MPV (7.2-11.7) fL Neut % (Auto) (50.0-75.0) % Lymph % (Auto) (20.0-40.0) % [place] % (Auto) (0.0-10.0) % Eos % (Auto) (0.0-4.0) % Baso % (Auto) (0.0-2.0) % Neut # (1.8-7.0) K/uL Lymph # (1.0-4.3) K/uL [place] # (0.0-0.8) K/uL Eos # (0.0-0.7) K/uL Baso # (0.0-0.2) K/uL Neutrophils % (Manual) (50-75) % Lymphocytes % (Manual) (20-40) % Monocytes % (Manual) (0-10) % Platelet Estimate (NORMAL) RBC Morphology ESR (0-15) mm/hr Puncture Site Rr Rr pCO2 39 43 (35-45) mm/Hg pO2 58 L 126 H (80-100) mm/Hg HCO3 34.7 H 34.9 H (21-28) mmol/L ABG pH 7.57 H 7.54 H (7.35-7.45) ABG Total CO2 36.9 H 38.1 H (22-28) mmol/L ABG O2 Saturation 95.9 97.9 (95-98) % ABG Base Excess 12.6 H 12.8 H (-2.0-3.0) mmol/L ABG Hemoglobin 13.3 13.6 (11.7-17.4) g/dL ABG Carboxyhemoglobin 1.1 0.9 (0.5-1.5) % POC ABG HHb (Measured) 4.0 2.1 (0.0-5.0) % ABG Methemoglobin 1.1 1.3 (0.0-3.0) % Piotr Test Pos Pos ABG Potassium (3.6-5.2) mmol/L A-a O2 Difference 107.0 248.0 mm/Hg Respiratory Index 1.8 2.0 Hgb O2 Saturation 93.8 L 95.7 (95.0-98.0) % Sodium (132-148) mmol/l Chloride (98-107) mmol/L Glucose (75-110) mg/dl Lactate (0.7-2.1) mmol/L Mechanical Rate 14 22 FiO2 30.0 60.0 % Tidal Volume 500 500 PEEP 5 5 Inspiratory BiPAP Expiratory BiPAP Crit Value Called To Crit Value Called By Crit Value Read Back Blood Gas Notified Time Potassium (3.6-5.2) mmol/L Carbon Dioxide (22-30) mmol/L Anion Gap (10-20) BUN (9-20) mg/dL Creatinine (0.8-1.5) MG/DL Est GFR ( Amer) Est GFR (Non-Af Amer) POC Glucose (mg/dL) 113 H (65-110) mg/dL Random Glucose (75-110) mg/dL Calcium (8.6-10.4) mg/dl Phosphorus (2.5-4.5) mg/dL Magnesium (1.6-2.3) mg/dL Total Bilirubin (0.2-1.3) mg/dL AST (17-59) U/L ALT (21-72) U/L Alkaline Phosphatase (38-126) U/L C-React Prot High Sens (1.00-3.00) mg/L Total Protein (6.3-8.3) g/dL Albumin (3.5-5.0) g/dL Globulin (2.2-3.9) gm/dL Albumin/Globulin Ratio (1.0-2.1) Carcinoembryonic Ag (0-3.0) ng/mL Prolactin (3.7-17.9) ng/mL Arterial Blood Potassium (3.6-5.2) mmol/L 09/17/16 Range/Units 21:00 WBC (4.8-10.8) K/uL RBC (4.40-5.90) Mil/uL Hgb (12.0-18.0) g/dL Hct (35.0-51.0) % MCV (80.0-94.0) fL MCH (27.0-31.0) pg MCHC (33.0-37.0) g/dL RDW (11.5-14.5) % Plt Count (130-400) K/uL MPV (7.2-11.7) fL Neut % (Auto) (50.0-75.0) % Lymph % (Auto) (20.0-40.0) % [place] % (Auto) (0.0-10.0) % Eos % (Auto) (0.0-4.0) % Baso % (Auto) (0.0-2.0) % Neut # (1.8-7.0) K/uL Lymph # (1.0-4.3) K/uL [place] # (0.0-0.8) K/uL Eos # (0.0-0.7) K/uL Baso # (0.0-0.2) K/uL Neutrophils % (Manual) (50-75) % Lymphocytes % (Manual) (20-40) % Monocytes % (Manual) (0-10) % Platelet Estimate (NORMAL) RBC Morphology ESR (0-15) mm/hr Puncture Site Rra pCO2 117 H* (35-45) mm/Hg pO2 80 (80-100) mm/Hg HCO3 33.8 H (21-28) mmol/L ABG pH 7.19 L* (7.35-7.45) ABG Total CO2 48.3 H (22-28) mmol/L ABG O2 Saturation 95.9 (95-98) % ABG Base Excess 11.5 H (-2.0-3.0) mmol/L ABG Hemoglobin (11.7-17.4) g/dL ABG Carboxyhemoglobin (0.5-1.5) % POC ABG HHb (Measured) (0.0-5.0) % ABG Methemoglobin (0.0-3.0) % Piotr Test Pos ABG Potassium 4.2 (3.6-5.2) mmol/L A-a O2 Difference -12.0 mm/Hg Respiratory Index -0.2 Hgb O2 Saturation (95.0-98.0) % Sodium 135.0 (132-148) mmol/l Chloride 98.0 (98-107) mmol/L Glucose 103 (75-110) mg/dl Lactate 0.3 L (0.7-2.1) mmol/L Mechanical Rate FiO2 30.0 % Tidal Volume PEEP Inspiratory BiPAP 12 Expiratory BiPAP 5 Crit Value Called To Dr fernandez Crit Value Called By Minda mak Crit Value Read Back Y Blood Gas Notified Time 2104 Potassium (3.6-5.2) mmol/L Carbon Dioxide (22-30) mmol/L Anion Gap (10-20) BUN (9-20) mg/dL Creatinine (0.8-1.5) MG/DL Est GFR ( Amer) Est GFR (Non-Af Amer) POC Glucose (mg/dL) (65-110) mg/dL Random Glucose (75-110) mg/dL Calcium (8.6-10.4) mg/dl Phosphorus (2.5-4.5) mg/dL Magnesium (1.6-2.3) mg/dL Total Bilirubin (0.2-1.3) mg/dL AST (17-59) U/L ALT (21-72) U/L Alkaline Phosphatase (38-126) U/L C-React Prot High Sens (1.00-3.00) mg/L Total Protein (6.3-8.3) g/dL Albumin (3.5-5.0) g/dL Globulin (2.2-3.9) gm/dL Albumin/Globulin Ratio (1.0-2.1) Carcinoembryonic Ag (0-3.0) ng/mL Prolactin (3.7-17.9) ng/mL Arterial Blood Potassium 4.2 (3.6-5.2) mmol/L Laboratory Results - last 24 hr 09/17/16 09/17/16 09/18/16 21:00 23:53 00:21 WBC RBC Hgb Hct MCV MCH MCHC RDW Plt Count MPV Neut % (Auto) Lymph % (Auto) [place] % (Auto) Eos % (Auto) Baso % (Auto) Neut # Lymph # [place] # Eos # Baso # Neutrophils % (Manual) Lymphocytes % (Manual) Monocytes % (Manual) Platelet Estimate RBC Morphology ESR Puncture Site Rra Rr pCO2 117 H* 43 pO2 80 126 H HCO3 33.8 H 34.9 H ABG pH 7.19 L* 7.54 H ABG Total CO2 48.3 H 38.1 H ABG O2 Saturation 95.9 97.9 ABG Base Excess 11.5 H 12.8 H ABG Hemoglobin 13.6 ABG Carboxyhemoglobin 0.9 POC ABG HHb (Measured) 2.1 ABG Methemoglobin 1.3 Piotr Test Pos Pos ABG Potassium 4.2 A-a O2 Difference -12.0 248.0 Respiratory Index -0.2 2.0 Hgb O2 Saturation 95.7 Sodium 135.0 Chloride 98.0 Glucose 103 Lactate 0.3 L Mechanical Rate 22 FiO2 30.0 60.0 Tidal Volume 500 PEEP 5 Inspiratory BiPAP 12 Expiratory BiPAP 5 Crit Value Called To Dr fernandez Crit Value Called By Minda mak Crit Value Read Back Y Blood Gas Notified Time 2104 Potassium Carbon Dioxide Anion Gap BUN Creatinine Est GFR ( Amer) Est GFR (Non-Af Amer) POC Glucose (mg/dL) 113 H Random Glucose Calcium Phosphorus Magnesium Total Bilirubin AST ALT Alkaline Phosphatase C-React Prot High Sens Total Protein Albumin Globulin Albumin/Globulin Ratio Carcinoembryonic Ag Prolactin Arterial Blood Potassium 4.2 09/18/16 09/18/16 09/18/16 05:17 06:29 06:29 WBC 11.3 H D RBC 4.22 L Hgb 12.8 Hct 39.3 MCV 93.1 MCH 30.3 MCHC 32.5 L RDW 13.8 Plt Count 166 MPV 8.9 Neut % (Auto) 86.7 H Lymph % (Auto) 6.8 L [place] % (Auto) 6.3 Eos % (Auto) 0.0 Baso % (Auto) 0.2 Neut # 9.8 H Lymph # 0.8 L [place] # 0.7 Eos # 0.0 Baso # 0.0 Neutrophils % (Manual) 86 H Lymphocytes % (Manual) 10 L Monocytes % (Manual) 4 Platelet Estimate Normal RBC Morphology Normal ESR 3 Puncture Site Rr pCO2 39 pO2 58 L HCO3 34.7 H ABG pH 7.57 H ABG Total CO2 36.9 H ABG O2 Saturation 95.9 ABG Base Excess 12.6 H ABG Hemoglobin 13.3 ABG Carboxyhemoglobin 1.1 POC ABG HHb (Measured) 4.0 ABG Methemoglobin 1.1 Piotr Test Pos ABG Potassium A-a O2 Difference 107.0 Respiratory Index 1.8 Hgb O2 Saturation 93.8 L Sodium 132 Chloride 91 L Glucose Lactate Mechanical Rate 14 FiO2 30.0 Tidal Volume 500 PEEP 5 Inspiratory BiPAP Expiratory BiPAP Crit Value Called To Crit Value Called By Crit Value Read Back Blood Gas Notified Time Potassium 3.7 Carbon Dioxide 33 H Anion Gap 12 BUN 11 Creatinine 0.6 L Est GFR ( Amer) > 60 Est GFR (Non-Af Amer) > 60 POC Glucose (mg/dL) Random Glucose 120 H Calcium 8.4 L Phosphorus 1.9 L Magnesium 1.9 Total Bilirubin 1.0 AST 27 ALT 29 Alkaline Phosphatase 62 C-React Prot High Sens Total Protein 5.9 L Albumin 3.4 L Globulin 2.6 Albumin/Globulin Ratio 1.3 Carcinoembryonic Ag 1.7 Prolactin Arterial Blood Potassium 09/18/16 09/18/16 09/18/16 06:29 06:32 08:11 WBC RBC Hgb Hct MCV MCH MCHC RDW Plt Count MPV Neut % (Auto) Lymph % (Auto) [place] % (Auto) Eos % (Auto) Baso % (Auto) Neut # Lymph # [place] # Eos # Baso # Neutrophils % (Manual) Lymphocytes % (Manual) Monocytes % (Manual) Platelet Estimate RBC Morphology ESR Puncture Site pCO2 pO2 HCO3 ABG pH ABG Total CO2 ABG O2 Saturation ABG Base Excess ABG Hemoglobin ABG Carboxyhemoglobin POC ABG HHb (Measured) ABG Methemoglobin Piotr Test ABG Potassium A-a O2 Difference Respiratory Index Hgb O2 Saturation Sodium Chloride Glucose Lactate Mechanical Rate FiO2 Tidal Volume PEEP Inspiratory BiPAP Expiratory BiPAP Crit Value Called To Crit Value Called By Crit Value Read Back Blood Gas Notified Time Potassium Carbon Dioxide Anion Gap BUN Creatinine Est GFR ( Amer) Est GFR (Non-Af Amer) POC Glucose (mg/dL) 136 H Random Glucose Calcium Phosphorus Magnesium 1.9 Total Bilirubin AST ALT Alkaline Phosphatase C-React Prot High Sens 1.42 Total Protein Albumin Globulin Albumin/Globulin Ratio Carcinoembryonic Ag Prolactin 12.8 Arterial Blood Potassium 09/18/16 08:42 WBC RBC Hgb Hct MCV MCH MCHC RDW Plt Count MPV Neut % (Auto) Lymph % (Auto) [place] % (Auto) Eos % (Auto) Baso % (Auto) Neut # Lymph # [place] # Eos # Baso # Neutrophils % (Manual) Lymphocytes % (Manual) Monocytes % (Manual) Platelet Estimate RBC Morphology ESR Puncture Site Rr pCO2 66 H pO2 199 H HCO3 31.7 H ABG pH 7.35 ABG Total CO2 38.4 H ABG O2 Saturation 98.5 H ABG Base Excess 8.7 H ABG Hemoglobin 11.8 ABG Carboxyhemoglobin 1.1 POC ABG HHb (Measured) 1.5 ABG Methemoglobin 1.2 Piotr Test Pos ABG Potassium A-a O2 Difference 146.0 Respiratory Index 0.7 Hgb O2 Saturation 96.2 Sodium Chloride Glucose Lactate Mechanical Rate 12 FiO2 60.0 Tidal Volume 400 PEEP 5 Inspiratory BiPAP Expiratory BiPAP Crit Value Called To Crit Value Called By Crit Value Read Back Blood Gas Notified Time Potassium Carbon Dioxide Anion Gap BUN Creatinine Est GFR ( Amer) Est GFR (Non-Af Amer) POC Glucose (mg/dL) Random Glucose Calcium Phosphorus Magnesium Total Bilirubin AST ALT Alkaline Phosphatase C-React Prot High Sens Total Protein Albumin Globulin Albumin/Globulin Ratio Carcinoembryonic Ag Prolactin Arterial Blood Potassium Fingerstick Blood Sugar Results: 136 Review of Systems - Review of Systems Systems not reviewed;Unavailable: Intubated Critical Care Progress Note - Ventilator Checklist Head of Bed 30 Degrees: Yes PUD Prophalyxis: No (not indicated) DVT Prophylaxis: Yes - Vent Settings MODE:: PRVC TIDAL VOLUME:: 450 RESP RATE:: 14 FIO2:: 30 PEEP:: 5 - Extremities/Vascular Does the Patient have a Central Venous Catheter?: No Does the Patient need a Central Venous Catheter?: No Does the Patient have a Esquivel Catheter?: Yes Does the Patient need a Esquivel Catheter?: Yes Catheter Insertion Criteria: Patient requires prolonged immobilization - Restraints Justification for Restraints: High risk for self extubation - Prophylaxis GI Prophylaxis GI: Not Indicated - Prophylaxis DVT Prophylaxis DVT: Lovenox Assessment/Plan (1) Acute respiratory failure with hypoxia and hypercarbia Current Visit: Yes Status: Acute (2) Hypercarbia Current Visit: Yes Status: Acute (3) Hypoxia Current Visit: Yes Status: Acute - Assessment and Plan (Free Text) Plan: Patient Status: -Stable Neuro: -Dr. Messina on board -r/o neuromuscular junction disorders, cholinergic disorders -precedex sedation Cardiovascular: -Hypotension- fluid challenge 1L NS bolus Pulmonary: -Intubated (PRVC 450 / 14 / 30% / 5) -Acute on Chronic Carbondioxide retention : solu-medrol 125mg IV Stat : solu-medrol 40mg IV q8 : duonebs -Imaging: : 09/18/16 CXR- no acute infiltrate/opacity. possible left sided nodule- official read pending : 09/17/16 CXR- no acute disease- official read pending -ABG: : 09/18/16- CO2 66 / O2 199 / HCO3 31.7 / pH 7.35 : 09/18/16- CO2 39 / O2 58 / HCO3 34.7 / pH 7.57 : 09/17/16- CO2 43 / O2 126 / HCO3 34.9 / pH 7.54 : 09/17/16- CO2 117 / O2 80 / HCO3 33.8 / pH 7.19 : 09/17/16- CO2 126 / O2 85 / HCO3 33.4 / pH 7.16 Gastrointestinal: -Tube feeding 30ml/hr -Nutrition consult Endocrine: -No issues Renal: -IVF- saline bolus -hypomagnesemia- replaced with 1g IV -hypophosphatemia- replaced with 15mmol IV Genitourinary: -monitor I&Os -continue esquivel Musculoskeletal: -No acute issues Hematology/Oncology: -No issues Infectious Disease: -No issues GI Prophylaxis: Not indicated at this time DVT Prophylaxis: Lovenox 40mg SC daily Case Discussed with Dr. Sam Coleman PGY1 - Date & Time Date: 09/18/16 Time: 11:54 <Holland Vargas - Last Filed: 09/18/16 18:49> CCU Subjective - Physician Review Critical Care Time Spent (in minutes): 40 CCU Objective - Vital Signs / Intake & Output Vital Signs (Last 4 hours): Vital Signs Temp Pulse Resp BP Pulse Ox 09/18/16 17:00 85 14 100 09/18/16 16:57 77 14 96/64 L 09/18/16 16:00 99 F 88 17 100 09/18/16 15:57 82 13 111/75 100 09/18/16 15:00 71 14 100 09/18/16 14:57 72 15 105/73 100 Intake and Output (Last 8hrs): Intake & Output 09/18/16 09/18/16 09/18/16 06:59 14:59 22:59 Intake Total 928.0 2101.0 601.2 Output Total 785 445 325 Balance 143.0 1656.0 276.2 Intake: IV 91 109 50 Intake, IV Amount 837.0 1992.0 431.2 Left Antecubital 700 1700 400 Left Forearm 70.0 62.4 31.2 Right Wrist 200 left arm 67.0 29.6 Tube Feeding 120 Output: Urine 785 445 325 Urethral (Esquivel) 785 445 325 Stool 0 0 - Medications Active Medications: Active Medications Generic Name Dose Route Start Last Admin Trade Name Freq PRN Reason Stop Dose Admin Albuterol/Ipratropium 3 ml 09/18/16 14:00 09/18/16 13:27 Duoneb 3 Mg/0.5 Mg (3 Ml) Ud INH 3 ml RQ6 ASA Administration Albuterol/Ipratropium 3 ml 09/18/16 11:29 Duoneb 3 Mg/0.5 Mg (3 Ml) Ud INH RQ2 PRN Shortness of Breath Dexmedetomidine HCl 200 mcg/ 50 mls @ 2.99 mls/hr 09/17/16 22:57 09/18/16 18: 21 Sodium Chloride IV 0.5 mcg/kg/hr TITR PRN 7.48 mls/hr Agitation Administration Protocol 0.2 MCG/KG/HR Propofol 1,000 mg in 100 mls @ 1.796 mls/hr 09/17/16 23:15 09/18/16 09:41 Diprivan IV 30 mcg/kg/min .Q24H PRN 10.777 mls/hr TITRATE PER MD ORDER Administration Protocol 5 MCG/KG/MIN Insulin Human Regular 0 unit 09/18/16 00:18 09/18/16 18:21 Novolin R SC 1 unit Q6H ASA Administration Protocol Methylprednisolone 40 mg 09/18/16 14:00 09/18/16 15:07 Solu-Medrol IVP Not Given Q8 ASA Pantoprazole Sodium 40 mg 09/18/16 10:00 09/18/16 09:37 Protonix Inj IVP 40 mg DAILY ASA Administration - Patient Studies Lab Studies: Lab Studies 09/18/16 09/18/16 09/18/16 Range/Units 18:00 15:08 11:44 WBC (4.8-10.8) K/uL RBC (4.40-5.90) Mil/uL Hgb (12.0-18.0) g/dL Hct (35.0-51.0) % MCV (80.0-94.0) fL MCH (27.0-31.0) pg MCHC (33.0-37.0) g/dL RDW (11.5-14.5) % Plt Count (130-400) K/uL MPV (7.2-11.7) fL Neut % (Auto) (50.0-75.0) % Lymph % (Auto) (20.0-40.0) % [place] % (Auto) (0.0-10.0) % Eos % (Auto) (0.0-4.0) % Baso % (Auto) (0.0-2.0) % Neut # (1.8-7.0) K/uL Lymph # (1.0-4.3) K/uL [place] # (0.0-0.8) K/uL Eos # (0.0-0.7) K/uL Baso # (0.0-0.2) K/uL Neutrophils % (Manual) (50-75) % Lymphocytes % (Manual) (20-40) % Monocytes % (Manual) (0-10) % Platelet Estimate (NORMAL) RBC Morphology ESR (0-15) mm/hr Puncture Site pCO2 (35-45) mm/Hg pO2 (80-100) mm/Hg HCO3 (21-28) mmol/L ABG pH (7.35-7.45) ABG Total CO2 (22-28) mmol/L ABG O2 Saturation (95-98) % ABG Base Excess (-2.0-3.0) mmol/L ABG Hemoglobin (11.7-17.4) g/dL ABG Carboxyhemoglobin (0.5-1.5) % POC ABG HHb (Measured) (0.0-5.0) % ABG Methemoglobin (0.0-3.0) % Piotr Test ABG Potassium (3.6-5.2) mmol/L A-a O2 Difference mm/Hg Respiratory Index Hgb O2 Saturation (95.0-98.0) % Sodium (132-148) mmol/l Chloride (98-107) mmol/L Glucose (75-110) mg/dl Lactate (0.7-2.1) mmol/L Mechanical Rate FiO2 % Tidal Volume PEEP Inspiratory BiPAP Expiratory BiPAP Crit Value Called To Crit Value Called By Crit Value Read Back Blood Gas Notified Time Potassium (3.6-5.2) mmol/L Carbon Dioxide (22-30) mmol/L Anion Gap (10-20) BUN (9-20) mg/dL Creatinine (0.8-1.5) MG/DL Est GFR ( Amer) Est GFR (Non-Af Amer) POC Glucose (mg/dL) 174 H 98 (65-110) mg/dL Random Glucose (75-110) mg/dL Calcium (8.6-10.4) mg/dl Phosphorus (2.5-4.5) mg/dL Magnesium (1.6-2.3) mg/dL Total Bilirubin (0.2-1.3) mg/dL AST (17-59) U/L ALT (21-72) U/L Alkaline Phosphatase (38-126) U/L C-React Prot High Sens (1.00-3.00) mg/L Total Protein (6.3-8.3) g/dL Albumin (3.5-5.0) g/dL Globulin (2.2-3.9) gm/dL Albumin/Globulin Ratio (1.0-2.1) Carcinoembryonic Ag (0-3.0) ng/mL Prolactin (3.7-17.9) ng/mL Arterial Blood Potassium (3.6-5.2) mmol/L Salicylates < 1.0 mg/dL 1 Rheum Arthritis Panel (NEGATIVE) 09/18/16 09/18/16 09/18/16 Range/Units 08:42 08:11 06:32 WBC (4.8-10.8) K/uL RBC (4.40-5.90) Mil/uL Hgb (12.0-18.0) g/dL Hct (35.0-51.0) % MCV (80.0-94.0) fL MCH (27.0-31.0) pg MCHC (33.0-37.0) g/dL RDW (11.5-14.5) % Plt Count (130-400) K/uL MPV (7.2-11.7) fL Neut % (Auto) (50.0-75.0) % Lymph % (Auto) (20.0-40.0) % [place] % (Auto) (0.0-10.0) % Eos % (Auto) (0.0-4.0) % Baso % (Auto) (0.0-2.0) % Neut # (1.8-7.0) K/uL Lymph # (1.0-4.3) K/uL [place] # (0.0-0.8) K/uL Eos # (0.0-0.7) K/uL Baso # (0.0-0.2) K/uL Neutrophils % (Manual) (50-75) % Lymphocytes % (Manual) (20-40) % Monocytes % (Manual) (0-10) % Platelet Estimate (NORMAL) RBC Morphology ESR (0-15) mm/hr Puncture Site Rr pCO2 66 H (35-45) mm/Hg pO2 199 H (80-100) mm/Hg HCO3 31.7 H (21-28) mmol/L ABG pH 7.35 (7.35-7.45) ABG Total CO2 38.4 H (22-28) mmol/L ABG O2 Saturation 98.5 H (95-98) % ABG Base Excess 8.7 H (-2.0-3.0) mmol/L ABG Hemoglobin 11.8 (11.7-17.4) g/dL ABG Carboxyhemoglobin 1.1 (0.5-1.5) % POC ABG HHb (Measured) 1.5 (0.0-5.0) % ABG Methemoglobin 1.2 (0.0-3.0) % Pitor Test Pos ABG Potassium (3.6-5.2) mmol/L A-a O2 Difference 146.0 mm/Hg Respiratory Index 0.7 Hgb O2 Saturation 96.2 (95.0-98.0) % Sodium (132-148) mmol/l Chloride (98-107) mmol/L Glucose (75-110) mg/dl Lactate (0.7-2.1) mmol/L Mechanical Rate 12 FiO2 60.0 % Tidal Volume 400 PEEP 5 Inspiratory BiPAP Expiratory BiPAP Crit Value Called To Crit Value Called By Crit Value Read Back Blood Gas Notified Time Potassium (3.6-5.2) mmol/L Carbon Dioxide (22-30) mmol/L Anion Gap (10-20) BUN (9-20) mg/dL Creatinine (0.8-1.5) MG/DL Est GFR ( Amer) Est GFR (Non-Af Amer) POC Glucose (mg/dL) 136 H (65-110) mg/dL Random Glucose (75-110) mg/dL Calcium (8.6-10.4) mg/dl Phosphorus (2.5-4.5) mg/dL Magnesium 1.9 (1.6-2.3) mg/dL Total Bilirubin (0.2-1.3) mg/dL AST (17-59) U/L ALT (21-72) U/L Alkaline Phosphatase (38-126) U/L C-React Prot High Sens (1.00-3.00) mg/L Total Protein (6.3-8.3) g/dL Albumin (3.5-5.0) g/dL Globulin (2.2-3.9) gm/dL Albumin/Globulin Ratio (1.0-2.1) Carcinoembryonic Ag (0-3.0) ng/mL Prolactin 12.8 (3.7-17.9) ng/mL Arterial Blood Potassium (3.6-5.2) mmol/L Salicylates mg/dL 1 Rheum Arthritis Panel (NEGATIVE) 09/18/16 09/18/16 09/18/16 Range/Units 06:29 06:29 06:29 WBC (4.8-10.8) K/uL RBC (4.40-5.90) Mil/uL Hgb (12.0-18.0) g/dL Hct (35.0-51.0) % MCV (80.0-94.0) fL MCH (27.0-31.0) pg MCHC (33.0-37.0) g/dL RDW (11.5-14.5) % Plt Count (130-400) K/uL MPV (7.2-11.7) fL Neut % (Auto) (50.0-75.0) % Lymph % (Auto) (20.0-40.0) % [place] % (Auto) (0.0-10.0) % Eos % (Auto) (0.0-4.0) % Baso % (Auto) (0.0-2.0) % Neut # (1.8-7.0) K/uL Lymph # (1.0-4.3) K/uL [place] # (0.0-0.8) K/uL Eos # (0.0-0.7) K/uL Baso # (0.0-0.2) K/uL Neutrophils % (Manual) (50-75) % Lymphocytes % (Manual) (20-40) % Monocytes % (Manual) (0-10) % Platelet Estimate (NORMAL) RBC Morphology ESR (0-15) mm/hr Puncture Site pCO2 (35-45) mm/Hg pO2 (80-100) mm/Hg HCO3 (21-28) mmol/L ABG pH (7.35-7.45) ABG Total CO2 (22-28) mmol/L ABG O2 Saturation (95-98) % ABG Base Excess (-2.0-3.0) mmol/L ABG Hemoglobin (11.7-17.4) g/dL ABG Carboxyhemoglobin (0.5-1.5) % POC ABG HHb (Measured) (0.0-5.0) % ABG Methemoglobin (0.0-3.0) % Piotr Test ABG Potassium (3.6-5.2) mmol/L A-a O2 Difference mm/Hg Respiratory Index Hgb O2 Saturation (95.0-98.0) % Sodium 132 (132-148) mmol/l Chloride 91 L (98-107) mmol/L Glucose (75-110) mg/dl Lactate (0.7-2.1) mmol/L Mechanical Rate FiO2 % Tidal Volume PEEP Inspiratory BiPAP Expiratory BiPAP Crit Value Called To Crit Value Called By Crit Value Read Back Blood Gas Notified Time Potassium 3.7 (3.6-5.2) mmol/L Carbon Dioxide 33 H (22-30) mmol/L Anion Gap 12 (10-20) BUN 11 (9-20) mg/dL Creatinine 0.6 L (0.8-1.5) MG/DL Est GFR ( Amer) > 60 Est GFR (Non-Af Amer) > 60 POC Glucose (mg/dL) (65-110) mg/dL Random Glucose 120 H (75-110) mg/dL Calcium 8.4 L (8.6-10.4) mg/dl Phosphorus 1.9 L (2.5-4.5) mg/dL Magnesium 1.9 (1.6-2.3) mg/dL Total Bilirubin 1.0 (0.2-1.3) mg/dL AST 27 (17-59) U/L ALT 29 (21-72) U/L Alkaline Phosphatase 62 (38-126) U/L C-React Prot High Sens 1.42 (1.00-3.00) mg/L Total Protein 5.9 L (6.3-8.3) g/dL Albumin 3.4 L (3.5-5.0) g/dL Globulin 2.6 (2.2-3.9) gm/dL Albumin/Globulin Ratio 1.3 (1.0-2.1) Carcinoembryonic Ag 1.7 (0-3.0) ng/mL Prolactin (3.7-17.9) ng/mL Arterial Blood Potassium (3.6-5.2) mmol/L Salicylates mg/dL 1 Rheum Arthritis Panel Negative (NEGATIVE) 09/18/16 09/18/16 09/18/16 Range/Units 06:29 05:17 00:21 WBC 11.3 H D (4.8-10.8) K/uL RBC 4.22 L (4.40-5.90) Mil/uL Hgb 12.8 (12.0-18.0) g/dL Hct 39.3 (35.0-51.0) % MCV 93.1 (80.0-94.0) fL MCH 30.3 (27.0-31.0) pg MCHC 32.5 L (33.0-37.0) g/dL RDW 13.8 (11.5-14.5) % Plt Count 166 (130-400) K/uL MPV 8.9 (7.2-11.7) fL Neut % (Auto) 86.7 H (50.0-75.0) % Lymph % (Auto) 6.8 L (20.0-40.0) % [place] % (Auto) 6.3 (0.0-10.0) % Eos % (Auto) 0.0 (0.0-4.0) % Baso % (Auto) 0.2 (0.0-2.0) % Neut # 9.8 H (1.8-7.0) K/uL Lymph # 0.8 L (1.0-4.3) K/uL [place] # 0.7 (0.0-0.8) K/uL Eos # 0.0 (0.0-0.7) K/uL Baso # 0.0 (0.0-0.2) K/uL Neutrophils % (Manual) 86 H (50-75) % Lymphocytes % (Manual) 10 L (20-40) % Monocytes % (Manual) 4 (0-10) % Platelet Estimate Normal (NORMAL) RBC Morphology Normal ESR 3 (0-15) mm/hr Puncture Site Rr pCO2 39 (35-45) mm/Hg pO2 58 L (80-100) mm/Hg HCO3 34.7 H (21-28) mmol/L ABG pH 7.57 H (7.35-7.45) ABG Total CO2 36.9 H (22-28) mmol/L ABG O2 Saturation 95.9 (95-98) % ABG Base Excess 12.6 H (-2.0-3.0) mmol/L ABG Hemoglobin 13.3 (11.7-17.4) g/dL ABG Carboxyhemoglobin 1.1 (0.5-1.5) % POC ABG HHb (Measured) 4.0 (0.0-5.0) % ABG Methemoglobin 1.1 (0.0-3.0) % Piotr Test Pos ABG Potassium (3.6-5.2) mmol/L A-a O2 Difference 107.0 mm/Hg Respiratory Index 1.8 Hgb O2 Saturation 93.8 L (95.0-98.0) % Sodium (132-148) mmol/l Chloride (98-107) mmol/L Glucose (75-110) mg/dl Lactate (0.7-2.1) mmol/L Mechanical Rate 14 FiO2 30.0 % Tidal Volume 500 PEEP 5 Inspiratory BiPAP Expiratory BiPAP Crit Value Called To Crit Value Called By Crit Value Read Back Blood Gas Notified Time Potassium (3.6-5.2) mmol/L Carbon Dioxide (22-30) mmol/L Anion Gap (10-20) BUN (9-20) mg/dL Creatinine (0.8-1.5) MG/DL Est GFR ( Amer) Est GFR (Non-Af Amer) POC Glucose (mg/dL) 113 H (65-110) mg/dL Random Glucose (75-110) mg/dL Calcium (8.6-10.4) mg/dl Phosphorus (2.5-4.5) mg/dL Magnesium (1.6-2.3) mg/dL Total Bilirubin (0.2-1.3) mg/dL AST (17-59) U/L ALT (21-72) U/L Alkaline Phosphatase (38-126) U/L C-React Prot High Sens (1.00-3.00) mg/L Total Protein (6.3-8.3) g/dL Albumin (3.5-5.0) g/dL Globulin (2.2-3.9) gm/dL Albumin/Globulin Ratio (1.0-2.1) Carcinoembryonic Ag (0-3.0) ng/mL Prolactin (3.7-17.9) ng/mL Arterial Blood Potassium (3.6-5.2) mmol/L Salicylates mg/dL 1 Rheum Arthritis Panel (NEGATIVE) 09/17/16 09/17/16 Range/Units 23:53 21:00 WBC (4.8-10.8) K/uL RBC (4.40-5.90) Mil/uL Hgb (12.0-18.0) g/dL Hct (35.0-51.0) % MCV (80.0-94.0) fL MCH (27.0-31.0) pg MCHC (33.0-37.0) g/dL RDW (11.5-14.5) % Plt Count (130-400) K/uL MPV (7.2-11.7) fL Neut % (Auto) (50.0-75.0) % Lymph % (Auto) (20.0-40.0) % [place] % (Auto) (0.0-10.0) % Eos % (Auto) (0.0-4.0) % Baso % (Auto) (0.0-2.0) % Neut # (1.8-7.0) K/uL Lymph # (1.0-4.3) K/uL [place] # (0.0-0.8) K/uL Eos # (0.0-0.7) K/uL Baso # (0.0-0.2) K/uL Neutrophils % (Manual) (50-75) % Lymphocytes % (Manual) (20-40) % Monocytes % (Manual) (0-10) % Platelet Estimate (NORMAL) RBC Morphology ESR (0-15) mm/hr Puncture Site Rr Rra pCO2 43 117 H* (35-45) mm/Hg pO2 126 H 80 (80-100) mm/Hg HCO3 34.9 H 33.8 H (21-28) mmol/L ABG pH 7.54 H 7.19 L* (7.35-7.45) ABG Total CO2 38.1 H 48.3 H (22-28) mmol/L ABG O2 Saturation 97.9 95.9 (95-98) % ABG Base Excess 12.8 H 11.5 H (-2.0-3.0) mmol/L ABG Hemoglobin 13.6 (11.7-17.4) g/dL ABG Carboxyhemoglobin 0.9 (0.5-1.5) % POC ABG HHb (Measured) 2.1 (0.0-5.0) % ABG Methemoglobin 1.3 (0.0-3.0) % Piotr Test Pos Pos ABG Potassium 4.2 (3.6-5.2) mmol/L A-a O2 Difference 248.0 -12.0 mm/Hg Respiratory Index 2.0 -0.2 Hgb O2 Saturation 95.7 (95.0-98.0) % Sodium 135.0 (132-148) mmol/l Chloride 98.0 (98-107) mmol/L Glucose 103 (75-110) mg/dl Lactate 0.3 L (0.7-2.1) mmol/L Mechanical Rate 22 FiO2 60.0 30.0 % Tidal Volume 500 PEEP 5 Inspiratory BiPAP 12 Expiratory BiPAP 5 Crit Value Called To Dr fernandez Crit Value Called By Minda mak Crit Value Read Back Y Blood Gas Notified Time 2104 Potassium (3.6-5.2) mmol/L Carbon Dioxide (22-30) mmol/L Anion Gap (10-20) BUN (9-20) mg/dL Creatinine (0.8-1.5) MG/DL Est GFR ( Amer) Est GFR (Non-Af Amer) POC Glucose (mg/dL) (65-110) mg/dL Random Glucose (75-110) mg/dL Calcium (8.6-10.4) mg/dl Phosphorus (2.5-4.5) mg/dL Magnesium (1.6-2.3) mg/dL Total Bilirubin (0.2-1.3) mg/dL AST (17-59) U/L ALT (21-72) U/L Alkaline Phosphatase (38-126) U/L C-React Prot High Sens (1.00-3.00) mg/L Total Protein (6.3-8.3) g/dL Albumin (3.5-5.0) g/dL Globulin (2.2-3.9) gm/dL Albumin/Globulin Ratio (1.0-2.1) Carcinoembryonic Ag (0-3.0) ng/mL Prolactin (3.7-17.9) ng/mL Arterial Blood Potassium 4.2 (3.6-5.2) mmol/L Salicylates mg/dL 1 Rheum Arthritis Panel (NEGATIVE) Laboratory Results - last 24 hr 09/17/16 09/17/16 09/18/16 21:00 23:53 00:21 WBC RBC Hgb Hct MCV MCH MCHC RDW Plt Count MPV Neut % (Auto) Lymph % (Auto) [place] % (Auto) Eos % (Auto) Baso % (Auto) Neut # Lymph # [place] # Eos # Baso # Neutrophils % (Manual) Lymphocytes % (Manual) Monocytes % (Manual) Platelet Estimate RBC Morphology ESR Puncture Site Rra Rr pCO2 117 H* 43 pO2 80 126 H HCO3 33.8 H 34.9 H ABG pH 7.19 L* 7.54 H ABG Total CO2 48.3 H 38.1 H ABG O2 Saturation 95.9 97.9 ABG Base Excess 11.5 H 12.8 H ABG Hemoglobin 13.6 ABG Carboxyhemoglobin 0.9 POC ABG HHb (Measured) 2.1 ABG Methemoglobin 1.3 Piotr Test Pos Pos ABG Potassium 4.2 A-a O2 Difference -12.0 248.0 Respiratory Index -0.2 2.0 Hgb O2 Saturation 95.7 Sodium 135.0 Chloride 98.0 Glucose 103 Lactate 0.3 L Mechanical Rate 22 FiO2 30.0 60.0 Tidal Volume 500 PEEP 5 Inspiratory BiPAP 12 Expiratory BiPAP 5 Crit Value Called To Dr fernandez Crit Value Called By Minda mak Crit Value Read Back Y Blood Gas Notified Time 2104 Potassium Carbon Dioxide Anion Gap BUN Creatinine Est GFR ( Amer) Est GFR (Non-Af Amer) POC Glucose (mg/dL) 113 H Random Glucose Calcium Phosphorus Magnesium Total Bilirubin AST ALT Alkaline Phosphatase C-React Prot High Sens Total Protein Albumin Globulin Albumin/Globulin Ratio Carcinoembryonic Ag Prolactin Arterial Blood Potassium 4.2 Salicylates Rheum Arthritis Panel 09/18/16 09/18/16 09/18/16 05:17 06:29 06:29 WBC 11.3 H D RBC 4.22 L Hgb 12.8 Hct 39.3 MCV 93.1 MCH 30.3 MCHC 32.5 L RDW 13.8 Plt Count 166 MPV 8.9 Neut % (Auto) 86.7 H Lymph % (Auto) 6.8 L [place] % (Auto) 6.3 Eos % (Auto) 0.0 Baso % (Auto) 0.2 Neut # 9.8 H Lymph # 0.8 L [place] # 0.7 Eos # 0.0 Baso # 0.0 Neutrophils % (Manual) 86 H Lymphocytes % (Manual) 10 L Monocytes % (Manual) 4 Platelet Estimate Normal RBC Morphology Normal ESR 3 Puncture Site Rr pCO2 39 pO2 58 L HCO3 34.7 H ABG pH 7.57 H ABG Total CO2 36.9 H ABG O2 Saturation 95.9 ABG Base Excess 12.6 H ABG Hemoglobin 13.3 ABG Carboxyhemoglobin 1.1 POC ABG HHb (Measured) 4.0 ABG Methemoglobin 1.1 Piotr Test Pos ABG Potassium A-a O2 Difference 107.0 Respiratory Index 1.8 Hgb O2 Saturation 93.8 L Sodium 132 Chloride 91 L Glucose Lactate Mechanical Rate 14 FiO2 30.0 Tidal Volume 500 PEEP 5 Inspiratory BiPAP Expiratory BiPAP Crit Value Called To Crit Value Called By Crit Value Read Back Blood Gas Notified Time Potassium 3.7 Carbon Dioxide 33 H Anion Gap 12 BUN 11 Creatinine 0.6 L Est GFR ( Amer) > 60 Est GFR (Non-Af Amer) > 60 POC Glucose (mg/dL) Random Glucose 120 H Calcium 8.4 L Phosphorus 1.9 L Magnesium 1.9 Total Bilirubin 1.0 AST 27 ALT 29 Alkaline Phosphatase 62 C-React Prot High Sens Total Protein 5.9 L Albumin 3.4 L Globulin 2.6 Albumin/Globulin Ratio 1.3 Carcinoembryonic Ag 1.7 Prolactin Arterial Blood Potassium Salicylates Rheum Arthritis Panel 09/18/16 09/18/16 09/18/16 06:29 06:29 06:32 WBC RBC Hgb Hct MCV MCH MCHC RDW Plt Count MPV Neut % (Auto) Lymph % (Auto) [place] % (Auto) Eos % (Auto) Baso % (Auto) Neut # Lymph # [place] # Eos # Baso # Neutrophils % (Manual) Lymphocytes % (Manual) Monocytes % (Manual) Platelet Estimate RBC Morphology ESR Puncture Site pCO2 pO2 HCO3 ABG pH ABG Total CO2 ABG O2 Saturation ABG Base Excess ABG Hemoglobin ABG Carboxyhemoglobin POC ABG HHb (Measured) ABG Methemoglobin Piotr Test ABG Potassium A-a O2 Difference Respiratory Index Hgb O2 Saturation Sodium Chloride Glucose Lactate Mechanical Rate FiO2 Tidal Volume PEEP Inspiratory BiPAP Expiratory BiPAP Crit Value Called To Crit Value Called By Crit Value Read Back Blood Gas Notified Time Potassium Carbon Dioxide Anion Gap BUN Creatinine Est GFR ( Amer) Est GFR (Non-Af Amer) POC Glucose (mg/dL) 136 H Random Glucose Calcium Phosphorus Magnesium Total Bilirubin AST ALT Alkaline Phosphatase C-React Prot High Sens 1.42 Total Protein Albumin Globulin Albumin/Globulin Ratio Carcinoembryonic Ag Prolactin Arterial Blood Potassium Salicylates Rheum Arthritis Panel Negative 09/18/16 09/18/16 09/18/16 08:11 08:42 11:44 WBC RBC Hgb Hct MCV MCH MCHC RDW Plt Count MPV Neut % (Auto) Lymph % (Auto) [place] % (Auto) Eos % (Auto) Baso % (Auto) Neut # Lymph # [place] # Eos # Baso # Neutrophils % (Manual) Lymphocytes % (Manual) Monocytes % (Manual) Platelet Estimate RBC Morphology ESR Puncture Site Rr pCO2 66 H pO2 199 H HCO3 31.7 H ABG pH 7.35 ABG Total CO2 38.4 H ABG O2 Saturation 98.5 H ABG Base Excess 8.7 H ABG Hemoglobin 11.8 ABG Carboxyhemoglobin 1.1 POC ABG HHb (Measured) 1.5 ABG Methemoglobin 1.2 Piotr Test Pos ABG Potassium A-a O2 Difference 146.0 Respiratory Index 0.7 Hgb O2 Saturation 96.2 Sodium Chloride Glucose Lactate Mechanical Rate 12 FiO2 60.0 Tidal Volume 400 PEEP 5 Inspiratory BiPAP Expiratory BiPAP Crit Value Called To Crit Value Called By Crit Value Read Back Blood Gas Notified Time Potassium Carbon Dioxide Anion Gap BUN Creatinine Est GFR ( Amer) Est GFR (Non-Af Amer) POC Glucose (mg/dL) 98 Random Glucose Calcium Phosphorus Magnesium 1.9 Total Bilirubin AST ALT Alkaline Phosphatase C-React Prot High Sens Total Protein Albumin Globulin Albumin/Globulin Ratio Carcinoembryonic Ag Prolactin 12.8 Arterial Blood Potassium Salicylates Rheum Arthritis Panel 09/18/16 09/18/16 15:08 18:00 WBC RBC Hgb Hct MCV MCH MCHC RDW Plt Count MPV Neut % (Auto) Lymph % (Auto) [place] % (Auto) Eos % (Auto) Baso % (Auto) Neut # Lymph # [place] # Eos # Baso # Neutrophils % (Manual) Lymphocytes % (Manual) Monocytes % (Manual) Platelet Estimate RBC Morphology ESR Puncture Site pCO2 pO2 HCO3 ABG pH ABG Total CO2 ABG O2 Saturation ABG Base Excess ABG Hemoglobin ABG Carboxyhemoglobin POC ABG HHb (Measured) ABG Methemoglobin Piotr Test ABG Potassium A-a O2 Difference Respiratory Index Hgb O2 Saturation Sodium Chloride Glucose Lactate Mechanical Rate FiO2 Tidal Volume PEEP Inspiratory BiPAP Expiratory BiPAP Crit Value Called To Crit Value Called By Crit Value Read Back Blood Gas Notified Time Potassium Carbon Dioxide Anion Gap BUN Creatinine Est GFR ( Amer) Est GFR (Non-Af Amer) POC Glucose (mg/dL) 174 H Random Glucose Calcium Phosphorus Magnesium Total Bilirubin AST ALT Alkaline Phosphatase C-React Prot High Sens Total Protein Albumin Globulin Albumin/Globulin Ratio Carcinoembryonic Ag Prolactin Arterial Blood Potassium Salicylates < 1.0 Rheum Arthritis Panel Attending/Attestation - Attestation I have personally seen and examined this patient.: Yes I have fully participated in the care of the patient.: Yes I have reviewed all pertinent clinical information: Yes Notes (Text): 09/18/16 18:37 Patient seen and examined in the intensive care unit. Case discussed with house staff, neurologist and PMD Admitted with hypercapnic respiratory failure requiring ventilatory support of unknown etiology Nephrology evaluation to rule out myopathy versus stroke IV steroids and nebulizer treatment to rule out COPD Continue ventilatory support and will try CPAP in am DC propofol and continue Precedex
--- NOTE | 2016-09-18 12:02 | CARD ---
APPROVED REPORT EKG Measurement Heart [id number] <Conclusion> Normal sinus rhythm Normal ECG
[2016-09-18] MEDS: Albuterol-Ipratrop 3 mg / 0.5 (3 ml) UD INH SCH ×2 (13:27→20:20)
--- NOTE | 2016-09-18 13:45 | CP.PCM.PN ---
Subjective - Date & Time of Evaluation Date of Evaluation: 09/18/16 Time of Evaluation: 13:42 - Subjective Subjective: CHIEF COMPLAINTS TODAY : OVERNITE INTUBATED DUE TO AGITATION ROS. INTUBATED PE. Pt. is ON RESPIRATOR V.S As noted in the chart Head ,ear nose,throat and eyes : Normal. Neck : Supple with normal carotids. Lungs: Clear air entry. Heart : S1 & S2 normal with S4. No murmur. Abd : Soft non tender with normal bowel sounds. Neuro : Moves all ext. with no localized deficit. Ext : No edema with intact pulses.Non tender calves Derm : No rashes or decubitus ulcer. LABS/RADIOLOGY: ASSESSMENT/PLAN : CONFUSING BLOOD GASES PT HAS RESP ACIDOSIS AND METABOLIC ALKALOSIS R/O SALICILATE INTOXICATION Objective - Vital Signs/Intake and Output Vital Signs (last 24 hours): Temp Pulse Resp BP Pulse Ox 98.1 F 77 14 96/69 L 100 09/18/16 12:00 09/18/16 12:00 09/18/16 12:00 09/18/16 11:57 09/18/16 12:00 Intake and Output: 09/18/16 09/18/16 11:59 23:59 Intake Total 2605.6 157.8 Output Total 1100 60 Balance 1505.6 97.8 - Medications Medications: Current Medications Albuterol/Ipratropium (Duoneb 3 Mg/0.5 Mg (3 Ml) Ud) 3 ml INH RQ6 ASA Last Admin: 09/18/16 13:27 Dose: 3 ml Albuterol/Ipratropium (Duoneb 3 Mg/0.5 Mg (3 Ml) Ud) 3 ml INH RQ2 PRN PRN Reason: Shortness of Breath Dexmedetomidine HCl 200 mcg/ (Sodium Chloride) 50 mls @ 2.99 mls/hr IV TITR PRN ; Protocol; 0.2 MCG/KG/HR PRN Reason: Agitation Last Admin: 09/18/16 10:56 Dose: 0.5 mcg/kg/hr, 7.48 mls/hr Propofol (Diprivan) 1,000 mg in 100 mls @ 1.796 mls/hr IV .Q24H PRN; Protocol; 5 MCG/KG/MIN PRN Reason: TITRATE PER MD ORDER Last Admin: 09/18/16 09:41 Dose: 30 mcg/kg/min, 10.777 mls/hr Sodium Phosphate 15 mmole/ (Sodium Chloride) 255 mls @ 42.5 mls/hr IVPB .Q6H ONE Stop: 09/18/16 15:59 Last Admin: 09/18/16 09:37 Dose: 42.5 mls/hr Insulin Human Regular (Novolin R) 0 unit SC Q6H ASA PRN Reason: Protocol Last Admin: 09/18/16 12:16 Dose: Not Given Methylprednisolone (Solu-Medrol) 40 mg IVP Q8 ASA Pantoprazole Sodium (Protonix Inj) 40 mg IVP DAILY [facility] Last Admin: 09/18/16 09:37 Dose: 40 mg - Labs Labs: 09/18/16 06:29 09/18/16 06:29
[2016-09-18] MEDS: MethylPREDNISolone 40 mg Vial IVP SCH ×2 (15:07→21:33)
--- NOTE | 2016-09-18 16:17 | RAD ---
PROCEDURE: CHEST RADIOGRAPH, 1 VIEW HISTORY: intubation COMPARISON: Angio chest PE study 09/17/2016 reporting "Right middle lobe 3 mm intrafissural nodule" please note that report Chest x-ray 09/17/2016 unremarkable FINDINGS: LUNGS: No consolidation appreciated. Lung volumes are shallow. Study is rotated towards the right PLEURA: No pneumothorax or pleural fluid seen. CARDIOVASCULAR: Unfolded thoracic aorta Top-normal heart size OSSEOUS STRUCTURES: Thoracic spondylosis VISUALIZED UPPER ABDOMEN: Apparent - - gaseous distension of the stomach OTHER FINDINGS: Endotracheal tube inserted tip 2.5 cm from the opal IMPRESSION: Endotracheal tube insertion -position satisfactory Ectatic thoracic aorta. No interval pulmonary consolidation appreciated. No gross pleural effusion
--- NOTE | 2016-09-18 16:20 | RAD ---
PROCEDURE: Chest 09/18/2016 HISTORY: on Vent COMPARISON: Comparison made with prior study 09/17/2016 FINDINGS: LUNGS: In situ ETT, tip of which lies approximately 4.2 cm above opal. Low lung volumes with mild bibasilar atelectasis right greater than left. . PLEURA: No evidence of pneumothorax or gross pleural effusion CARDIOVASCULAR: Heart size is borderline enlarged. OSSEOUS STRUCTURES: Mild dextroscoliosis VISUALIZED UPPER ABDOMEN: Normal. OTHER FINDINGS: None. IMPRESSION: In situ ETT as described. Low lung volumes with mild bibasilar atelectasis right greater than left
[2016-09-19] MEDS: (Novolin R) Insulin Human Regular 100 units/ml vial SC SCH ×4 (00:17→18:48)
[2016-09-19] MEDS: Albuterol-Ipratrop 3 mg / 0.5 (3 ml) UD INH SCH ×4 (01:42→20:13)
[2016-09-19] MEDS: Dexmedetomidine Hydrochloride 200 MCG in Sodium Chloride 0.9% 48 ML IV PRN (05:25)
[2016-09-19 05:32] LABS: ABG ALLEN TEST POS; ABG MECHANICAL RATE 14; ARTERIAL BLOOD HGB O2 SAT 96.4 % (95.0-98.0); ATERIAL BLOOD GAS PEEP 5; CARBOXYHEMOGLOBIN 0.6 % (0.5-1.5); DRAW SITE R RAD; HHB 1.8 % (0.0-5.0); METHEMOGLOBIN 1.3 % (0.0-3.0)
[2016-09-19 06:01] LABS: BASO % 0.1 % (0.0-2.0); HEMATOCRIT 38.9 % (35.0-51.0); LYMPH # 0.6 K/uL (1.0-4.3); MEAN CELL VOLUME 92.5 fL (80.0-94.0); MEAN CORPUSCULAR HEMOGLOBIN 29.4 pg (27.0-31.0); MEAN CORPUSCULAR HGB CONC 31.8 g/dL (33.0-37.0); MEAN PLATELET VOLUME 9.2 fL (7.2-11.7); MONO # 0.9 K/uL (0.0-0.8); MONO % 4.6 % (0.0-10.0); PLATELET COUNT 165 K/uL (130-400); WHITE BLOOD COUNT 19.4 K/uL (4.8-10.8)
[2016-09-19 06:10] LABS: CHLORIDE 98 mmol/L (98-107)
[2016-09-19 06:11] LABS: POTASSIUM 4.1 mmol/L (3.6-5.2); SODIUM 136 mmol/L (132-148)
[2016-09-19 06:13] LABS: ALKALINE PHOSPHATASE 52 U/L (38-126); AST/SGOT 19 U/L (17-59); BILIRUBIN,TOTAL 0.6 mg/dL (0.2-1.3); BLOOD UREA NITROGEN 14 mg/dL (9-20); CARBON DIOXIDE 32 mmol/L (22-30); GFR AFRICAN-AMERICAN > 60; TOTAL PROTEIN 5.8 g/dL (6.3-8.3)
[2016-09-19 06:14] LABS: ALT/SGPT 33 U/L (21-72); GLUCOSE,RANDOM 157 mg/dL (75-110); MAGNESIUM 2.2 mg/dL (1.6-2.3)
[2016-09-19 06:19] LABS: INR 1.3
[2016-09-19] MEDS: MethylPREDNISolone 40 mg Vial IVP SCH ×3 (07:19→21:48)
--- NOTE | 2016-09-19 08:19 | CON ---
DATE: 09/18/2016 ATTENDING PHYSICIAN: Ramon Leal MD. LOCATION: ICU, bed 17. REASON FOR CONSULTATION: Change in mental status with respiratory failure. CHIEF COMPLAINT: The patient was brought in by family members with a change in physical presentation including respiratory problem with tremulousness. From neurological point of view, I was called in to evaluate him for his abnormal muscle twitching of his shoulder and respiratory failure. HISTORY OF PRESENT ILLNESS: The patient is a 66-year-old right-handed male, from without any unusual medical history, presenting with shortness of breath with muscle twitching over his shoulder muscle groups. In the Emergency Room, patient was evaluated. The patient was found to be hypoxic as well as with increased retention of carbon oxide and change in mental status with respiratory issues. The patient was electively intubated overnight. The patient's condition has been discussed by the policy writer sales during the course of his treatment. No history of fall. No history of trauma. No history of recent travel or recent vaccination. PERSONAL HISTORY: No history of smoking or alcohol use. MEDICATIONS: IV fluids and insulin. PHYSICAL EXAMINATION: VITAL SIGNS: Blood pressure 105/73, mean arterial pressure of 82, respiratory rate 18, temperature 99.5 degrees Fahrenheit with a pulse rate 86. NEUROLOGIC: The patient is sedated with eyes closed. 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 Left eye conjunctivae were red. Right side pupil is 3 mm; on flashing light, it went down to 2.75. Good corneal reflex. Roving conjugate gaze noted. On manipulating the endotracheal tube, some gag reflex also noted as well. MOTOR: He is not moving any extremities spontaneously. On noxious stimuli, some purposeful movement noted. Tone is increased in all 4 extremities. DEEP TENDON REFLEXES: Biceps, brachioradialis, triceps 1+; right knee 3+; left knee 2+. Both Plantars are with dull response as well as triple flexion noted. SENSORY: Responds to pain. COORDINATION AND GAIT: Deferred at this time. MUSCLES: No muscle twitching noted. CONCLUSION: The patient has been presenting with shortness of breath with impending respiratory failure with some muscle twitching noted clinically a day prior to the admission. All of this raises the possibility of some toxic event. It could be iatrogenic versus exposure to some toxic material. However , other possible causes only from neurological point of view, it could be postictal phenomena. However, with limited history and limited examination, the other possible causes cannot be ruled out mainly the fasciculation suggest atypical Motor Neuron Disease. WORKUP: CT of the head reviewed. No acute pathology. A CT of the abdomen shows some cystic changes in the liver. BLOOD WORKUP: WBC 11.3, hemoglobin 12.8, hematocrit 39.3, platelet 166. The patient's blood gas in the beginning 7.16, at present 7.35. PCO2 in the beginning 126, came down to 66 now. PCO2 beginning 85, at present 199. Bicarbonate initially was 33.4, now 31.7 with oxygen saturation the beginning 95.9 and now 98.5. Sodium 132, potassium 3.7, chloride 91, bicarbonate 33, BUN 11, creatinine 0.6, GFR more than 60, glucose 136, calcium 8.4, phosphorus 1.9, magnesium 1.9. TSH pending. Plasma cortisol 11.0. Urine for tox screen is negative. RECOMMENDATIONS: 1. When medically stable, the patient is recommended to have extubation. 2. Repeat CT of the head to be done; preferably a CT of the head with contrast may be helpful to rule out any intracranial pathology. Following extubation, definitely patient should need MRI of the brain. 3. Electroencephalogram to be done to rule out any active electrographic seizures at present. Rule out nonconvulsive status. Continue the present management at present. The patient's condition has been well discussed with policy writer sales. Jose Messina MD cc: [id number] TT: 09/18/2016 16:24:02 Confirmation # [id number] Dictation # [id number] ignacio BACA
[2016-09-19 08:36] LABS: NEUTROPHIL 89 % (50-75); TOTAL CELLS COUNTED 100
--- NOTE | 2016-09-19 10:28 | RAD ---
Chest x-ray single frontal view History: Endotracheal tube evaluation. Comparison: 09/18/2016 Findings: Lines and tubes in stable position. Moderate venous congestion. Right hilar prominence. Heart size within normal limits. Degenerative changes in the spine and shoulders. Impression: Moderate venous congestion. Right hilar prominence.
--- NOTE | 2016-09-19 13:13 | CP.PCM.PN ---
Subjective - Date & Time of Evaluation Date of Evaluation: 09/19/16 Time of Evaluation: 13:12 - Subjective Subjective: EXTUBATED ON VM SAT. 100% WBC UP 15.4 CXR CONT ICU MANAGEMENT Objective - Vital Signs/Intake and Output Vital Signs (last 24 hours): Temp Pulse Resp BP Pulse Ox 99.1 F 109 H 17 110/71 97 09/19/16 12:00 09/19/16 13:10 09/19/16 09:57 09/19/16 09:57 09/19/16 09:57 Intake and Output: 09/19/16 09/19/16 11:59 23:59 Intake Total 314.6 Output Total 635 50 Balance -320.4 -50 - Medications Medications: Current Medications Albuterol/Ipratropium (Duoneb 3 Mg/0.5 Mg (3 Ml) Ud) 3 ml INH RQ6 ASA Last Admin: 09/19/16 13:09 Dose: 3 ml Albuterol/Ipratropium (Duoneb 3 Mg/0.5 Mg (3 Ml) Ud) 3 ml INH RQ2 PRN PRN Reason: Shortness of Breath Dexmedetomidine HCl 200 mcg/ (Sodium Chloride) 50 mls @ 2.99 mls/hr IV TITR PRN ; Protocol; 0.2 MCG/KG/HR PRN Reason: Agitation Last Admin: 09/19/16 05:25 Dose: 0.5 mcg/kg/hr, 7.48 mls/hr Propofol (Diprivan) 1,000 mg in 100 mls @ 1.796 mls/hr IV .Q24H PRN; Protocol; 5 MCG/KG/MIN PRN Reason: TITRATE PER MD ORDER Last Admin: 09/18/16 09:41 Dose: 30 mcg/kg/min, 10.777 mls/hr Insulin Human Regular (Novolin R) 0 unit SC Q6H ASA PRN Reason: Protocol Last Admin: 09/19/16 12:31 Dose: 1 unit Methylprednisolone (Solu-Medrol) 40 mg IVP Q8 ASA Last Admin: 09/19/16 07:19 Dose: 40 mg Pantoprazole Sodium (Protonix Inj) 40 mg IVP DAILY [facility] Last Admin: 09/19/16 09:23 Dose: 40 mg - Labs Labs: 09/19/16 05:50 09/19/16 05:50 PT 14.6 SECONDS (9.7-12.2) H 09/19/16 05:50 INR 1.3 09/19/16 05:50 APTT 30 SECONDS (21-34) 09/19/16 05:50
--- NOTE | 2016-09-19 17:26 | CP.CCUPN ---
<Rohan Coleman - Last Filed: 09/19/16 17:23> CCU Subjective - Physician Review Subjective (Free Text): 09/18/16 11:40 Patient seen and examined at the bedside. No acute distress. No acute events overnight. Nursing staff reports no issues. The patient was intubated 2/2 to hypercarbia and non-compliance with BiPAP. The patient is currently on sedation. PRVC 400mL, 12/min, 5, 30%. Today on rounds, the patient's vent setting were changed. The TV was increased to 450mL and the respiratory rate was increased to 14/min. The patient's mag and phos were also replaced. Post rounds, the patient was noted to be hypotensive. The patient was started on IVF for fluid challenge. The patient was also given solu-medrol 125mg IV stat and a scheduled dose of solu-medrol 40mg IV q8. The patient was also started on tube feeds with a rate of 30ml/hr. Nutrition was consulted for a goal rate. 09/19/16 17:24 Patient seen and examined at the bedside. No acute distress. No acute events overnight. Nursing staff reports no issues. Patient remains intubated with minimal sedation. Today on rounds, the patient's sedation was DC and the patient was started on the vent weaning protocol for extubation. Post rounds, the patient was extubated. The patient is tolerating the extubation well. Critical Care Time Spent (in minutes): 60 CCU Objective - Vital Signs / Intake & Output Vital Signs (Last 4 hours): Vital Signs Temp Pulse Resp BP Pulse Ox 09/19/16 16:00 99 F 105 H 24 100 09/19/16 15:57 101 H 23 105/71 97 09/19/16 15:40 104 H 09/19/16 15:00 111 H 31 H 100 09/19/16 14:57 107 H 27 H 108/70 99 09/19/16 14:00 111 H 26 H 100 09/19/16 13:57 109 H 29 H 111/68 98 Intake and Output (Last 8hrs): Intake & Output 09/19/16 09/19/16 09/19/16 06:59 14:59 22:59 Intake Total 314.6 37.8 Output Total 400 460 125 Balance -85.4 -422.2 -125 Intake: IV 50 Intake, IV Amount 54.6 7.8 Left Forearm 54.6 7.8 Tube Feeding 210 30 Output: Urine 400 460 125 Urethral (Browning) 400 460 125 - Physical Exam Head: Positive for: Atraumatic, Normocephalic, Other (ET Tube in place) Conjunctiva: Positive for: Normal Mouth: Positive for: Moist Mucous Membranes Nose (External): Positive for: Atraumatic Neck: Negative for: JVD, Lymphadenopathy Respiratory/Chest: Positive for: Clear to Auscultation, Good Air Exchange. Negative for: Respiratory Distress, Accessory Muscle Use, Wheezes, Decreased Breath Sounds, Rales, Rhonchi, Tachypneic Cardiovascular: Positive for: Regular Rate and Rhythm, Normal S1, S2, Peripheal Pulses Present. Negative for: Murmurs Abdomen: Positive for: Normal Bowel Sounds. Negative for: Tenderness, Distention, Peritoneal Signs Upper Extremity: Positive for: Normal Inspection. Negative for: Cyanosis, Edema Lower Extremity: Positive for: Normal Inspection. Negative for: Edema Skin: Positive for: Warm, Dry, Normal Color. Negative for: Rashes - Medications Active Medications: Active Medications Generic Name Dose Route Start Last Admin Trade Name Freq PRN Reason Stop Dose Admin Albuterol/Ipratropium 3 ml 09/18/16 14:00 09/19/16 13:09 Duoneb 3 Mg/0.5 Mg (3 Ml) Ud INH 3 ml RQ6 ASA Administration Albuterol/Ipratropium 3 ml 09/18/16 11:29 Duoneb 3 Mg/0.5 Mg (3 Ml) Ud INH RQ2 PRN Shortness of Breath Dexmedetomidine HCl 200 mcg/ 50 mls @ 2.99 mls/hr 09/17/16 22:57 09/19/16 05: 25 Sodium Chloride IV 0.5 mcg/kg/hr TITR PRN 7.48 mls/hr Agitation Administration Protocol 0.2 MCG/KG/HR Propofol 1,000 mg in 100 mls @ 1.796 mls/hr 09/17/16 23:15 09/18/16 09:41 Diprivan IV 30 mcg/kg/min .Q24H PRN 10.777 mls/hr TITRATE PER MD ORDER Administration Protocol 5 MCG/KG/MIN Insulin Human Regular 0 unit 09/18/16 00:18 09/19/16 12:31 Novolin R SC 1 unit Q6H ASA Administration Protocol Methylprednisolone 40 mg 09/18/16 14:00 09/19/16 16:27 Solu-Medrol IVP 40 mg Q8 ASA Administration Pantoprazole Sodium 40 mg 09/18/16 10:00 09/19/16 09:23 Protonix Inj IVP 40 mg DAILY ASA Administration - Patient Studies Lab Studies: Lab Studies 09/19/16 09/19/16 09/19/16 Range/Units 12:21 05:50 05:50 WBC (4.8-10.8) K/uL RBC (4.40-5.90) Mil/uL Hgb (12.0-18.0) g/dL Hct (35.0-51.0) % MCV (80.0-94.0) fL MCH (27.0-31.0) pg MCHC (33.0-37.0) g/dL RDW (11.5-14.5) % Plt Count (130-400) K/uL MPV (7.2-11.7) fL Neut % (Auto) (50.0-75.0) % Lymph % (Auto) (20.0-40.0) % Sanders % (Auto) (0.0-10.0) % Eos % (Auto) (0.0-4.0) % Baso % (Auto) (0.0-2.0) % Neut # (1.8-7.0) K/uL Lymph # (1.0-4.3) K/uL Sanders # (0.0-0.8) K/uL Eos # (0.0-0.7) K/uL Baso # (0.0-0.2) K/uL Neutrophils % (Manual) (50-75) % Band Neutrophils % (0-2) % Lymphocytes % (Manual) (20-40) % Monocytes % (Manual) (0-10) % Platelet Estimate (NORMAL) RBC Morphology PT 14.6 H (9.7-12.2) SECONDS INR 1.3 APTT 30 (21-34) SECONDS Puncture Site pCO2 (35-45) mm/Hg pO2 (80-100) mm/Hg HCO3 (21-28) mmol/L ABG pH (7.35-7.45) ABG Total CO2 (22-28) mmol/L ABG O2 Saturation (95-98) % ABG Base Excess (-2.0-3.0) mmol/L ABG Hemoglobin (11.7-17.4) g/dL ABG Carboxyhemoglobin (0.5-1.5) % POC ABG HHb (Measured) (0.0-5.0) % ABG Methemoglobin (0.0-3.0) % Piotr Test A-a O2 Difference mm/Hg Respiratory Index Hgb O2 Saturation (95.0-98.0) % Mechanical Rate FiO2 % Tidal Volume PEEP Sodium 136 (132-148) mmol/L Potassium 4.1 (3.6-5.2) mmol/L Chloride 98 (98-107) mmol/L Carbon Dioxide 32 H (22-30) mmol/L Anion Gap 10 (10-20) BUN 14 (9-20) mg/dL Creatinine 0.6 L (0.8-1.5) MG/DL Est GFR ( Amer) > 60 Est GFR (Non-Af Amer) > 60 POC Glucose (mg/dL) 157 H (65-110) mg/dL Random Glucose 157 H (75-110) mg/dL Calcium 8.0 L (8.6-10.4) mg/dl Ionized Calcium (4.80-5.60) mg/dL Phosphorus 4.0 (2.5-4.5) mg/dL Magnesium 2.2 (1.6-2.3) mg/dL Total Bilirubin 0.6 (0.2-1.3) mg/dL AST 19 (17-59) U/L ALT 33 (21-72) U/L Alkaline Phosphatase 52 (38-126) U/L Total Protein 5.8 L (6.3-8.3) g/dL Albumin 2.9 L (3.5-5.0) g/dL Globulin 2.9 (2.2-3.9) gm/dL Albumin/Globulin Ratio 1.0 (1.0-2.1) Serum Immunofixation 09/19/16 09/19/16 09/19/16 Range/Units 05:50 04:20 00:13 WBC 19.4 H D (4.8-10.8) K/uL RBC 4.20 L (4.40-5.90) Mil/uL Hgb 12.4 (12.0-18.0) g/dL Hct 38.9 (35.0-51.0) % MCV 92.5 (80.0-94.0) fL MCH 29.4 (27.0-31.0) pg MCHC 31.8 L (33.0-37.0) g/dL RDW 14.0 (11.5-14.5) % Plt Count 165 (130-400) K/uL MPV 9.2 (7.2-11.7) fL Neut % (Auto) 92.3 H (50.0-75.0) % Lymph % (Auto) 3.0 L (20.0-40.0) % Sanders % (Auto) 4.6 (0.0-10.0) % Eos % (Auto) 0.0 (0.0-4.0) % Baso % (Auto) 0.1 (0.0-2.0) % Neut # 17.9 H (1.8-7.0) K/uL Lymph # 0.6 L (1.0-4.3) K/uL Sanders # 0.9 H (0.0-0.8) K/uL Eos # 0.0 (0.0-0.7) K/uL Baso # 0.0 (0.0-0.2) K/uL Neutrophils % (Manual) 89 H (50-75) % Band Neutrophils % 7 H (0-2) % Lymphocytes % (Manual) 3 L (20-40) % Monocytes % (Manual) 1 (0-10) % Platelet Estimate Normal (NORMAL) RBC Morphology Normal PT (9.7-12.2) SECONDS INR APTT (21-34) SECONDS Puncture Site R rad pCO2 49 H (35-45) mm/Hg pO2 193 H (80-100) mm/Hg HCO3 27.4 (21-28) mmol/L ABG pH 7.38 (7.35-7.45) ABG Total CO2 30.5 H (22-28) mmol/L ABG O2 Saturation 98.2 H (95-98) % ABG Base Excess 3.2 H (-2.0-3.0) mmol/L ABG Hemoglobin 10.9 L (11.7-17.4) g/dL ABG Carboxyhemoglobin 0.6 (0.5-1.5) % POC ABG HHb (Measured) 1.8 (0.0-5.0) % ABG Methemoglobin 1.3 (0.0-3.0) % Piotr Test Pos A-a O2 Difference 174.0 mm/Hg Respiratory Index 0.9 Hgb O2 Saturation 96.4 (95.0-98.0) % Mechanical Rate 14 FiO2 60.0 % Tidal Volume 450 PEEP 5 Sodium (132-148) mmol/L Potassium (3.6-5.2) mmol/L Chloride (98-107) mmol/L Carbon Dioxide (22-30) mmol/L Anion Gap (10-20) BUN (9-20) mg/dL Creatinine (0.8-1.5) MG/DL Est GFR ( Amer) Est GFR (Non-Af Amer) POC Glucose (mg/dL) 189 H (65-110) mg/dL Random Glucose (75-110) mg/dL Calcium (8.6-10.4) mg/dl Ionized Calcium (4.80-5.60) mg/dL Phosphorus (2.5-4.5) mg/dL Magnesium (1.6-2.3) mg/dL Total Bilirubin (0.2-1.3) mg/dL AST (17-59) U/L ALT (21-72) U/L Alkaline Phosphatase (38-126) U/L Total Protein (6.3-8.3) g/dL Albumin (3.5-5.0) g/dL Globulin (2.2-3.9) gm/dL Albumin/Globulin Ratio (1.0-2.1) Serum Immunofixation 09/18/16 09/18/16 Range/Units 18:00 07:08 WBC (4.8-10.8) K/uL RBC (4.40-5.90) Mil/uL Hgb (12.0-18.0) g/dL Hct (35.0-51.0) % MCV (80.0-94.0) fL MCH (27.0-31.0) pg MCHC (33.0-37.0) g/dL RDW (11.5-14.5) % Plt Count (130-400) K/uL MPV (7.2-11.7) fL Neut % (Auto) (50.0-75.0) % Lymph % (Auto) (20.0-40.0) % Sanders % (Auto) (0.0-10.0) % Eos % (Auto) (0.0-4.0) % Baso % (Auto) (0.0-2.0) % Neut # (1.8-7.0) K/uL Lymph # (1.0-4.3) K/uL Sanders # (0.0-0.8) K/uL Eos # (0.0-0.7) K/uL Baso # (0.0-0.2) K/uL Neutrophils % (Manual) (50-75) % Band Neutrophils % (0-2) % Lymphocytes % (Manual) (20-40) % Monocytes % (Manual) (0-10) % Platelet Estimate (NORMAL) RBC Morphology PT (9.7-12.2) SECONDS INR APTT (21-34) SECONDS Puncture Site pCO2 (35-45) mm/Hg pO2 (80-100) mm/Hg HCO3 (21-28) mmol/L ABG pH (7.35-7.45) ABG Total CO2 (22-28) mmol/L ABG O2 Saturation (95-98) % ABG Base Excess (-2.0-3.0) mmol/L ABG Hemoglobin (11.7-17.4) g/dL ABG Carboxyhemoglobin (0.5-1.5) % POC ABG HHb (Measured) (0.0-5.0) % ABG Methemoglobin (0.0-3.0) % Piotr Test A-a O2 Difference mm/Hg Respiratory Index Hgb O2 Saturation (95.0-98.0) % Mechanical Rate FiO2 % Tidal Volume PEEP Sodium (132-148) mmol/L Potassium (3.6-5.2) mmol/L Chloride (98-107) mmol/L Carbon Dioxide (22-30) mmol/L Anion Gap (10-20) BUN (9-20) mg/dL Creatinine (0.8-1.5) MG/DL Est GFR ( Amer) Est GFR (Non-Af Amer) POC Glucose (mg/dL) 174 H (65-110) mg/dL Random Glucose (75-110) mg/dL Calcium (8.6-10.4) mg/dl Ionized Calcium 5.4 (4.80-5.60) mg/dL Phosphorus (2.5-4.5) mg/dL Magnesium (1.6-2.3) mg/dL Total Bilirubin (0.2-1.3) mg/dL AST (17-59) U/L ALT (21-72) U/L Alkaline Phosphatase (38-126) U/L Total Protein (6.3-8.3) g/dL Albumin (3.5-5.0) g/dL Globulin (2.2-3.9) gm/dL Albumin/Globulin Ratio (1.0-2.1) Serum Immunofixation See note Laboratory Results - last 24 hr 09/18/16 09/18/16 09/19/16 07:08 18:00 00:13 WBC RBC Hgb Hct MCV MCH MCHC RDW Plt Count MPV Neut % (Auto) Lymph % (Auto) Sanders % (Auto) Eos % (Auto) Baso % (Auto) Neut # Lymph # Sanders # Eos # Baso # Neutrophils % (Manual) Band Neutrophils % Lymphocytes % (Manual) Monocytes % (Manual) Platelet Estimate RBC Morphology PT INR APTT Puncture Site pCO2 pO2 HCO3 ABG pH ABG Total CO2 ABG O2 Saturation ABG Base Excess ABG Hemoglobin ABG Carboxyhemoglobin POC ABG HHb (Measured) ABG Methemoglobin Piotr Test A-a O2 Difference Respiratory Index Hgb O2 Saturation Mechanical Rate FiO2 Tidal Volume PEEP Sodium Potassium Chloride Carbon Dioxide Anion Gap BUN Creatinine Est GFR ( Amer) Est GFR (Non-Af Amer) POC Glucose (mg/dL) 174 H 189 H Random Glucose Calcium Ionized Calcium 5.4 Phosphorus Magnesium Total Bilirubin AST ALT Alkaline Phosphatase Total Protein Albumin Globulin Albumin/Globulin Ratio Serum Immunofixation See note 09/19/16 09/19/16 09/19/16 04:20 05:50 05:50 WBC 19.4 H D RBC 4.20 L Hgb 12.4 Hct 38.9 MCV 92.5 MCH 29.4 MCHC 31.8 L RDW 14.0 Plt Count 165 MPV 9.2 Neut % (Auto) 92.3 H Lymph % (Auto) 3.0 L Sanders % (Auto) 4.6 Eos % (Auto) 0.0 Baso % (Auto) 0.1 Neut # 17.9 H Lymph # 0.6 L Sanders # 0.9 H Eos # 0.0 Baso # 0.0 Neutrophils % (Manual) 89 H Band Neutrophils % 7 H Lymphocytes % (Manual) 3 L Monocytes % (Manual) 1 Platelet Estimate Normal RBC Morphology Normal PT 14.6 H INR 1.3 APTT 30 Puncture Site R rad pCO2 49 H pO2 193 H HCO3 27.4 ABG pH 7.38 ABG Total CO2 30.5 H ABG O2 Saturation 98.2 H ABG Base Excess 3.2 H ABG Hemoglobin 10.9 L ABG Carboxyhemoglobin 0.6 POC ABG HHb (Measured) 1.8 ABG Methemoglobin 1.3 Piotr Test Pos A-a O2 Difference 174.0 Respiratory Index 0.9 Hgb O2 Saturation 96.4 Mechanical Rate 14 FiO2 60.0 Tidal Volume 450 PEEP 5 Sodium Potassium Chloride Carbon Dioxide Anion Gap BUN Creatinine Est GFR ( Amer) Est GFR (Non-Af Amer) POC Glucose (mg/dL) Random Glucose Calcium Ionized Calcium Phosphorus Magnesium Total Bilirubin AST ALT Alkaline Phosphatase Total Protein Albumin Globulin Albumin/Globulin Ratio Serum Immunofixation 09/19/16 09/19/16 05:50 12:21 WBC RBC Hgb Hct MCV MCH MCHC RDW Plt Count MPV Neut % (Auto) Lymph % (Auto) Sanders % (Auto) Eos % (Auto) Baso % (Auto) Neut # Lymph # Sanders # Eos # Baso # Neutrophils % (Manual) Band Neutrophils % Lymphocytes % (Manual) Monocytes % (Manual) Platelet Estimate RBC Morphology PT INR APTT Puncture Site pCO2 pO2 HCO3 ABG pH ABG Total CO2 ABG O2 Saturation ABG Base Excess ABG Hemoglobin ABG Carboxyhemoglobin POC ABG HHb (Measured) ABG Methemoglobin Piotr Test A-a O2 Difference Respiratory Index Hgb O2 Saturation Mechanical Rate FiO2 Tidal Volume PEEP Sodium 136 Potassium 4.1 Chloride 98 Carbon Dioxide 32 H Anion Gap 10 BUN 14 Creatinine 0.6 L Est GFR ( Amer) > 60 Est GFR (Non-Af Amer) > 60 POC Glucose (mg/dL) 157 H Random Glucose 157 H Calcium 8.0 L Ionized Calcium Phosphorus 4.0 Magnesium 2.2 Total Bilirubin 0.6 AST 19 ALT 33 Alkaline Phosphatase 52 Total Protein 5.8 L Albumin 2.9 L Globulin 2.9 Albumin/Globulin Ratio 1.0 Serum Immunofixation Fingerstick Blood Sugar Results: 189 Review of Systems - Review of Systems Systems not reviewed;Unavailable: Intubated Critical Care Progress Note - Extremities/Vascular Does the Patient have a Central Venous Catheter?: No Does the Patient need a Central Venous Catheter?: No Does the Patient have a Browning Catheter?: No Does the Patient need a Browning Catheter?: No - Prophylaxis GI Prophylaxis GI: Not Indicated - Prophylaxis DVT Prophylaxis DVT: Lovenox Assessment/Plan (1) Acute respiratory failure with hypoxia and hypercarbia Current Visit: Yes Status: Acute (2) Hypercarbia Current Visit: Yes Status: Acute (3) Hypoxia Current Visit: Yes Status: Acute - Assessment and Plan (Free Text) Plan: Patient Status: -Extubated -Stable Neuro: -Dr. Messina following -immunologic studies and NMJ studies pending Cardiovascular: -Stable -intermittent tachycardia- will monitor for know Pulmonary: -Extubated; tolerating well -Acute on Chronic Carbondioxide retention : solu-medrol 125mg IV Stat : solu-medrol 40mg IV q8 : duonebs -Imaging: : 09/19/16 CXR- Lines and tubes in stable position. Moderate venous congestion. Right hilar prominence. : 09/18/16 CXR- no acute infiltrate/opacity. possible left sided nodule- official read pending : 09/17/16 CXR- no acute disease- official read pending -ABG: : 09/19/16- CO2 49 / O2 103 / HCO3 27.4 / pH 7.38 : 09/18/16- CO2 66 / O2 199 / HCO3 31.7 / pH 7.35 : 09/18/16- CO2 39 / O2 58 / HCO3 34.7 / pH 7.57 : 09/17/16- CO2 43 / O2 126 / HCO3 34.9 / pH 7.54 : 09/17/16- CO2 117 / O2 80 / HCO3 33.8 / pH 7.19 : 09/17/16- CO2 126 / O2 85 / HCO3 33.4 / pH 7.16 Gastrointestinal: -Reg diet Endocrine: -No issues Renal: -No issues Genitourinary: -monitor I&Os Musculoskeletal: -No acute issues -Rheumatoid Negative Hematology/Oncology: -No issues Infectious Disease: -No issues GI Prophylaxis: Not indicated at this time DVT Prophylaxis: Lovenox 40mg SC daily Case Discussed with Dr. Sam Coleman PGY1 - Date & Time Date: 09/19/16 Time: 17:26 <Holland Vargas - Last Filed: 09/19/16 17:45> CCU Subjective - Physician Review Critical Care Time Spent (in minutes): 40 CCU Objective - Vital Signs / Intake & Output Vital Signs (Last 4 hours): Vital Signs Temp Pulse Resp BP Pulse Ox 09/19/16 16:00 99 F 105 H 24 100 09/19/16 15:57 101 H 23 105/71 97 09/19/16 15:40 104 H 09/19/16 15:00 111 H 31 H 100 09/19/16 14:57 107 H 27 H 108/70 99 09/19/16 14:00 111 H 26 H 100 09/19/16 13:57 109 H 29 H 111/68 98 Intake and Output (Last 8hrs): Intake & Output 09/19/16 09/19/16 09/19/16 06:59 14:59 22:59 Intake Total 314.6 37.8 Output Total 400 460 125 Balance -85.4 -422.2 -125 Intake: IV 50 Intake, IV Amount 54.6 7.8 Left Forearm 54.6 7.8 Tube Feeding 210 30 Output: Urine 400 460 125 Urethral (Browning) 400 460 125 - Medications Active Medications: Active Medications Generic Name Dose Route Start Last Admin Trade Name Freq PRN Reason Stop Dose Admin Albuterol/Ipratropium 3 ml 09/18/16 14:00 09/19/16 13:09 Duoneb 3 Mg/0.5 Mg (3 Ml) Ud INH 3 ml RQ6 ASA Administration Albuterol/Ipratropium 3 ml 09/18/16 11:29 Duoneb 3 Mg/0.5 Mg (3 Ml) Ud INH RQ2 PRN Shortness of Breath Dexmedetomidine HCl 200 mcg/ 50 mls @ 2.99 mls/hr 09/17/16 22:57 09/19/16 05: 25 Sodium Chloride IV 0.5 mcg/kg/hr TITR PRN 7.48 mls/hr Agitation Administration Protocol 0.2 MCG/KG/HR Propofol 1,000 mg in 100 mls @ 1.796 mls/hr 09/17/16 23:15 09/18/16 09:41 Diprivan IV 30 mcg/kg/min .Q24H PRN 10.777 mls/hr TITRATE PER MD ORDER Administration Protocol 5 MCG/KG/MIN Insulin Human Regular 0 unit 09/18/16 00:18 09/19/16 12:31 Novolin R SC 1 unit Q6H ASA Administration Protocol Methylprednisolone 40 mg 09/18/16 14:00 09/19/16 16:27 Solu-Medrol IVP 40 mg Q8 ASA Administration Pantoprazole Sodium 40 mg 09/18/16 10:00 09/19/16 09:23 Protonix Inj IVP 40 mg DAILY ASA Administration - Patient Studies Lab Studies: Lab Studies 09/19/16 09/19/16 09/19/16 Range/Units 12:21 05:50 05:50 WBC (4.8-10.8) K/uL RBC (4.40-5.90) Mil/uL Hgb (12.0-18.0) g/dL Hct (35.0-51.0) % MCV (80.0-94.0) fL MCH (27.0-31.0) pg MCHC (33.0-37.0) g/dL RDW (11.5-14.5) % Plt Count (130-400) K/uL MPV (7.2-11.7) fL Neut % (Auto) (50.0-75.0) % Lymph % (Auto) (20.0-40.0) % Sanders % (Auto) (0.0-10.0) % Eos % (Auto) (0.0-4.0) % Baso % (Auto) (0.0-2.0) % Neut # (1.8-7.0) K/uL Lymph # (1.0-4.3) K/uL Sanders # (0.0-0.8) K/uL Eos # (0.0-0.7) K/uL Baso # (0.0-0.2) K/uL Neutrophils % (Manual) (50-75) % Band Neutrophils % (0-2) % Lymphocytes % (Manual) (20-40) % Monocytes % (Manual) (0-10) % Platelet Estimate (NORMAL) RBC Morphology PT 14.6 H (9.7-12.2) SECONDS INR 1.3 APTT 30 (21-34) SECONDS Puncture Site pCO2 (35-45) mm/Hg pO2 (80-100) mm/Hg HCO3 (21-28) mmol/L ABG pH (7.35-7.45) ABG Total CO2 (22-28) mmol/L ABG O2 Saturation (95-98) % ABG Base Excess (-2.0-3.0) mmol/L ABG Hemoglobin (11.7-17.4) g/dL ABG Carboxyhemoglobin (0.5-1.5) % POC ABG HHb (Measured) (0.0-5.0) % ABG Methemoglobin (0.0-3.0) % Piotr Test A-a O2 Difference mm/Hg Respiratory Index Hgb O2 Saturation (95.0-98.0) % Mechanical Rate FiO2 % Tidal Volume PEEP Sodium 136 (132-148) mmol/L Potassium 4.1 (3.6-5.2) mmol/L Chloride 98 (98-107) mmol/L Carbon Dioxide 32 H (22-30) mmol/L Anion Gap 10 (10-20) BUN 14 (9-20) mg/dL Creatinine 0.6 L (0.8-1.5) MG/DL Est GFR ( Amer) > 60 Est GFR (Non-Af Amer) > 60 POC Glucose (mg/dL) 157 H (65-110) mg/dL Random Glucose 157 H (75-110) mg/dL Calcium 8.0 L (8.6-10.4) mg/dl Ionized Calcium (4.80-5.60) mg/dL Phosphorus 4.0 (2.5-4.5) mg/dL Magnesium 2.2 (1.6-2.3) mg/dL Total Bilirubin 0.6 (0.2-1.3) mg/dL AST 19 (17-59) U/L ALT 33 (21-72) U/L Alkaline Phosphatase 52 (38-126) U/L Total Protein 5.8 L (6.3-8.3) g/dL Albumin 2.9 L (3.5-5.0) g/dL Globulin 2.9 (2.2-3.9) gm/dL Albumin/Globulin Ratio 1.0 (1.0-2.1) Serum Immunofixation 09/19/16 09/19/16 09/19/16 Range/Units 05:50 04:20 00:13 WBC 19.4 H D (4.8-10.8) K/uL RBC 4.20 L (4.40-5.90) Mil/uL Hgb 12.4 (12.0-18.0) g/dL Hct 38.9 (35.0-51.0) % MCV 92.5 (80.0-94.0) fL MCH 29.4 (27.0-31.0) pg MCHC 31.8 L (33.0-37.0) g/dL RDW 14.0 (11.5-14.5) % Plt Count 165 (130-400) K/uL MPV 9.2 (7.2-11.7) fL Neut % (Auto) 92.3 H (50.0-75.0) % Lymph % (Auto) 3.0 L (20.0-40.0) % Sanders % (Auto) 4.6 (0.0-10.0) % Eos % (Auto) 0.0 (0.0-4.0) % Baso % (Auto) 0.1 (0.0-2.0) % Neut # 17.9 H (1.8-7.0) K/uL Lymph # 0.6 L (1.0-4.3) K/uL Sanders # 0.9 H (0.0-0.8) K/uL Eos # 0.0 (0.0-0.7) K/uL Baso # 0.0 (0.0-0.2) K/uL Neutrophils % (Manual) 89 H (50-75) % Band Neutrophils % 7 H (0-2) % Lymphocytes % (Manual) 3 L (20-40) % Monocytes % (Manual) 1 (0-10) % Platelet Estimate Normal (NORMAL) RBC Morphology Normal PT (9.7-12.2) SECONDS INR APTT (21-34) SECONDS Puncture Site R rad pCO2 49 H (35-45) mm/Hg pO2 193 H (80-100) mm/Hg HCO3 27.4 (21-28) mmol/L ABG pH 7.38 (7.35-7.45) ABG Total CO2 30.5 H (22-28) mmol/L ABG O2 Saturation 98.2 H (95-98) % ABG Base Excess 3.2 H (-2.0-3.0) mmol/L ABG Hemoglobin 10.9 L (11.7-17.4) g/dL ABG Carboxyhemoglobin 0.6 (0.5-1.5) % POC ABG HHb (Measured) 1.8 (0.0-5.0) % ABG Methemoglobin 1.3 (0.0-3.0) % Piotr Test Pos A-a O2 Difference 174.0 mm/Hg Respiratory Index 0.9 Hgb O2 Saturation 96.4 (95.0-98.0) % Mechanical Rate 14 FiO2 60.0 % Tidal Volume 450 PEEP 5 Sodium (132-148) mmol/L Potassium (3.6-5.2) mmol/L Chloride (98-107) mmol/L Carbon Dioxide (22-30) mmol/L Anion Gap (10-20) BUN (9-20) mg/dL Creatinine (0.8-1.5) MG/DL Est GFR ( Amer) Est GFR (Non-Af Amer) POC Glucose (mg/dL) 189 H (65-110) mg/dL Random Glucose (75-110) mg/dL Calcium (8.6-10.4) mg/dl Ionized Calcium (4.80-5.60) mg/dL Phosphorus (2.5-4.5) mg/dL Magnesium (1.6-2.3) mg/dL Total Bilirubin (0.2-1.3) mg/dL AST (17-59) U/L ALT (21-72) U/L Alkaline Phosphatase (38-126) U/L Total Protein (6.3-8.3) g/dL Albumin (3.5-5.0) g/dL Globulin (2.2-3.9) gm/dL Albumin/Globulin Ratio (1.0-2.1) Serum Immunofixation 06/13/17 06/13/17 Range/Units 18:00 07:08 WBC (4.8-10.8) K/uL RBC (4.40-5.90) Mil/uL Hgb (12.0-18.0) g/dL Hct (35.0-51.0) % MCV (80.0-94.0) fL MCH (27.0-31.0) pg MCHC (33.0-37.0) g/dL RDW (11.5-14.5) % Plt Count (130-400) K/uL MPV (7.2-11.7) fL Neut % (Auto) (50.0-75.0) % Lymph % (Auto) (20.0-40.0) % Sanders % (Auto) (0.0-10.0) % Eos % (Auto) (0.0-4.0) % Baso % (Auto) (0.0-2.0) % Neut # (1.8-7.0) K/uL Lymph # (1.0-4.3) K/uL Sanders # (0.0-0.8) K/uL Eos # (0.0-0.7) K/uL Baso # (0.0-0.2) K/uL Neutrophils % (Manual) (50-75) % Band Neutrophils % (0-2) % Lymphocytes % (Manual) (20-40) % Monocytes % (Manual) (0-10) % Platelet Estimate (NORMAL) RBC Morphology PT (9.7-12.2) SECONDS INR APTT (21-34) SECONDS Puncture Site pCO2 (35-45) mm/Hg pO2 (80-100) mm/Hg HCO3 (21-28) mmol/L ABG pH (7.35-7.45) ABG Total CO2 (22-28) mmol/L ABG O2 Saturation (95-98) % ABG Base Excess (-2.0-3.0) mmol/L ABG Hemoglobin (11.7-17.4) g/dL ABG Carboxyhemoglobin (0.5-1.5) % POC ABG HHb (Measured) (0.0-5.0) % ABG Methemoglobin (0.0-3.0) % Piotr Test A-a O2 Difference mm/Hg Respiratory Index Hgb O2 Saturation (95.0-98.0) % Mechanical Rate FiO2 % Tidal Volume PEEP Sodium (132-148) mmol/L Potassium (3.6-5.2) mmol/L Chloride (98-107) mmol/L Carbon Dioxide (22-30) mmol/L Anion Gap (10-20) BUN (9-20) mg/dL Creatinine (0.8-1.5) MG/DL Est GFR ( Amer) Est GFR (Non-Af Amer) POC Glucose (mg/dL) 174 H (65-110) mg/dL Random Glucose (75-110) mg/dL Calcium (8.6-10.4) mg/dl Ionized Calcium 5.4 (4.80-5.60) mg/dL Phosphorus (2.5-4.5) mg/dL Magnesium (1.6-2.3) mg/dL Total Bilirubin (0.2-1.3) mg/dL AST (17-59) U/L ALT (21-72) U/L Alkaline Phosphatase (38-126) U/L Total Protein (6.3-8.3) g/dL Albumin (3.5-5.0) g/dL Globulin (2.2-3.9) gm/dL Albumin/Globulin Ratio (1.0-2.1) Serum Immunofixation See note Laboratory Results - last 24 hr 09/18/16 09/18/16 09/19/16 07:08 18:00 00:13 WBC RBC Hgb Hct MCV MCH MCHC RDW Plt Count MPV Neut % (Auto) Lymph % (Auto) Sanders % (Auto) Eos % (Auto) Baso % (Auto) Neut # Lymph # Sanders # Eos # Baso # Neutrophils % (Manual) Band Neutrophils % Lymphocytes % (Manual) Monocytes % (Manual) Platelet Estimate RBC Morphology PT INR APTT Puncture Site pCO2 pO2 HCO3 ABG pH ABG Total CO2 ABG O2 Saturation ABG Base Excess ABG Hemoglobin ABG Carboxyhemoglobin POC ABG HHb (Measured) ABG Methemoglobin Piotr Test A-a O2 Difference Respiratory Index Hgb O2 Saturation Mechanical Rate FiO2 Tidal Volume PEEP Sodium Potassium Chloride Carbon Dioxide Anion Gap BUN Creatinine Est GFR ( Amer) Est GFR (Non-Af Amer) POC Glucose (mg/dL) 174 H 189 H Random Glucose Calcium Ionized Calcium 5.4 Phosphorus Magnesium Total Bilirubin AST ALT Alkaline Phosphatase Total Protein Albumin Globulin Albumin/Globulin Ratio Serum Immunofixation See note 09/19/16 09/19/16 09/19/16 04:20 05:50 05:50 WBC 19.4 H D RBC 4.20 L Hgb 12.4 Hct 38.9 MCV 92.5 MCH 29.4 MCHC 31.8 L RDW 14.0 Plt Count 165 MPV 9.2 Neut % (Auto) 92.3 H Lymph % (Auto) 3.0 L Sanders % (Auto) 4.6 Eos % (Auto) 0.0 Baso % (Auto) 0.1 Neut # 17.9 H Lymph # 0.6 L Sanders # 0.9 H Eos # 0.0 Baso # 0.0 Neutrophils % (Manual) 89 H Band Neutrophils % 7 H Lymphocytes % (Manual) 3 L Monocytes % (Manual) 1 Platelet Estimate Normal RBC Morphology Normal PT 14.6 H INR 1.3 APTT 30 Puncture Site R rad pCO2 49 H pO2 193 H HCO3 27.4 ABG pH 7.38 ABG Total CO2 30.5 H ABG O2 Saturation 98.2 H ABG Base Excess 3.2 H ABG Hemoglobin 10.9 L ABG Carboxyhemoglobin 0.6 POC ABG HHb (Measured) 1.8 ABG Methemoglobin 1.3 Piotr Test Pos A-a O2 Difference 174.0 Respiratory Index 0.9 Hgb O2 Saturation 96.4 Mechanical Rate 14 FiO2 60.0 Tidal Volume 450 PEEP 5 Sodium Potassium Chloride Carbon Dioxide Anion Gap BUN Creatinine Est GFR ( Amer) Est GFR (Non-Af Amer) POC Glucose (mg/dL) Random Glucose Calcium Ionized Calcium Phosphorus Magnesium Total Bilirubin AST ALT Alkaline Phosphatase Total Protein Albumin Globulin Albumin/Globulin Ratio Serum Immunofixation 09/19/16 09/19/16 05:50 12:21 WBC RBC Hgb Hct MCV MCH MCHC RDW Plt Count MPV Neut % (Auto) Lymph % (Auto) Sanders % (Auto) Eos % (Auto) Baso % (Auto) Neut # Lymph # Sanders # Eos # Baso # Neutrophils % (Manual) Band Neutrophils % Lymphocytes % (Manual) Monocytes % (Manual) Platelet Estimate RBC Morphology PT INR APTT Puncture Site pCO2 pO2 HCO3 ABG pH ABG Total CO2 ABG O2 Saturation ABG Base Excess ABG Hemoglobin ABG Carboxyhemoglobin POC ABG HHb (Measured) ABG Methemoglobin Piotr Test A-a O2 Difference Respiratory Index Hgb O2 Saturation Mechanical Rate FiO2 Tidal Volume PEEP Sodium 136 Potassium 4.1 Chloride 98 Carbon Dioxide 32 H Anion Gap 10 BUN 14 Creatinine 0.6 L Est GFR ( Amer) > 60 Est GFR (Non-Af Amer) > 60 POC Glucose (mg/dL) 157 H Random Glucose 157 H Calcium 8.0 L Ionized Calcium Phosphorus 4.0 Magnesium 2.2 Total Bilirubin 0.6 AST 19 ALT 33 Alkaline Phosphatase 52 Total Protein 5.8 L Albumin 2.9 L Globulin 2.9 Albumin/Globulin Ratio 1.0 Serum Immunofixation Critical Care Progress Note - Nutrition Nutrition: Nutrition Category Date Time Status Heart Healthy Diet [DIET] Diets 09/19/16 Dinner Active Attending/Attestation - Attestation I have personally seen and examined this patient.: Yes I have fully participated in the care of the patient.: Yes I have reviewed all pertinent clinical information: Yes Notes (Text): 09/19/16 17:44 Patient seen and examined in the intensive care unit. Case discussed with house staff in the morning rounds. Patient extubated after weaning trial and was placed on BiPAP for tachypnea and tachycardia Vital capacity 1.7 L Myasthenia gravis workup in progress Continue steroids and nebulizer treatment
--- NOTE | 2016-09-19 18:32 | PN ---
DATE: 09/19/2016 NEUROLOGICAL PROBLEM: Impending respiratory failure with muscle fasciculation. The patient was examined twice, once this morning before extubation and after extubation around 5:30 p.m. Following extubation the patient did have a tachycardic episode. The patient was kept on BiPAP 09/17. The patient seems to be comfortable and the pulse ox is 100 present. NEUROLOGIC EXAMINATION: The patient's mentation is normal. Cranial nerves: No ptosis. Extraocular movement normal. Again, fasciculation noted over bilateral deltoid and biceps muscle groups includi ng quadriceps muscle groups. Sensory examination grossly intact. Motor: He moves all 4 extremities against gravity. Significant atrophy noted over the palmar muscle groups in both hands. Plantars ar e equivocal response manifesting with triple flexion on the right side; left side was downgoing. CONCLUSION: The patient has been presenting with upper motor neuron as well as lower motor neuron dy sfunction at present. 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 However, other possible causes i ncluding lumbar spinal stenosis including a spinal cord lesion could affect the phrenic nerve and wou ld be the cause for his respiratory problem. RECOMMENDATIONS: The patient needs further workup as stated in the orders as well as MRI of the cerv ical spine and MRI of the brain to be done. The patient also did have an electroencephalogram which can be read by me today. The patient can be treated symptomatically for now. The patient will be followed closely with you. Jose Messina MD cc: [id number] TT: 09/19/2016 18:31:54 Confirmation # [id number] Dictation # [id number] ignacio
[2016-09-20] MEDS: (Novolin R) Insulin Human Regular 100 units/ml vial SC SCH ×5 (00:15→21:32)
[2016-09-20] MEDS: Albuterol-Ipratrop 3 mg / 0.5 (3 ml) UD INH SCH ×4 (01:32→19:10)
[2016-09-20 06:23] LABS: HEMATOCRIT 38.1 % (35.0-51.0); LYMPH # 0.4 K/uL (1.0-4.3); LYMPH % 1.8 % (20.0-40.0); MEAN CELL VOLUME 93.4 fL (80.0-94.0); MEAN CORPUSCULAR HEMOGLOBIN 29.4 pg (27.0-31.0); MEAN CORPUSCULAR HGB CONC 31.5 g/dL (33.0-37.0); MEAN PLATELET VOLUME 9.5 fL (7.2-11.7); MONO # 0.5 K/uL (0.0-0.8); PLATELET COUNT 160 K/uL (130-400); WHITE BLOOD COUNT 22.7 K/uL (4.8-10.8)
[2016-09-20 06:33] LABS: CHLORIDE 95 mmol/L (98-107)
[2016-09-20 06:34] LABS: POTASSIUM 4.7 mmol/L (3.6-5.2); SODIUM 138 mmol/L (132-148)
--- NOTE | 2016-09-20 06:35 | EEG ---
DATE: 09/19/2016 This is a 16-channel electroencephalogram of awake and drowsy adult. The study was performed at the bedside. The patient was intubated. The resting electroencephalogram consists of moderate voltage 3 0-40 volts alpha activity seen in parietal and occipital leads. Anteriorly fast activity superimpose d with 2-3 Hz delta activity seen at frontal and central leads. Intermittent movement artifact conta minated the background rhythm. The photic stimulation did not evoke driving response noted at 2-20 H z. IMPRESSION: This is a normal electroencephalogram of awake and drowsy adult. During the study, neit her electroencephalographic paroxysmal activities nor focal slowing noted. Jose Messina MD cc: [id number] TT: 09/20/2016 06:34:47 Confirmation # [id number] Dictation # [id number]
[2016-09-20 06:36] LABS: ALB/GLOB RATIO 1.1 (1.0-2.1); ALKALINE PHOSPHATASE 54 U/L (38-126); ALT/SGPT 30 U/L (21-72); AST/SGOT 20 U/L (17-59); BILIRUBIN,TOTAL 0.6 mg/dL (0.2-1.3); BLOOD UREA NITROGEN 18 mg/dL (9-20); CARBON DIOXIDE 39 mmol/L (22-30); GFR AFRICAN-AMERICAN > 60; GLUCOSE,RANDOM 134 mg/dL (75-110); TOTAL PROTEIN 6.2 g/dL (6.3-8.3)
[2016-09-20 06:37] LABS: CALCIUM 8.4 mg/dl (8.6-10.4); MAGNESIUM 2.4 mg/dL (1.6-2.3); PHOSPHOROUS 3.6 mg/dL (2.5-4.5)
[2016-09-20] MEDS: MethylPREDNISolone 40 mg Vial IVP SCH ×3 (06:53→21:11)
[2016-09-20 08:18] LABS: NEUTROPHIL 90 % (50-75); TOTAL CELLS COUNTED 100
[2016-09-20 08:19] LABS: LARGE PLATELETS PRESENT
--- NOTE | 2016-09-20 08:56 | PN ---
DATE: 09/20/2016 TIME OF EVALUATION: 7:05 a.m. NEUROLOGICAL PROBLEM: Atypical motor neuron disease. The patient is status post extubation. The patient feels good without BiPAP. The patient is under nasal cannula only. Pulse oxygen is 100%: PHYSICAL EXAMINATION: VITAL SIGNS: Blood pressure 112/73, mean arterial pressure of 85, respiratory rate 18, pulse rate is 107. NEUROLOGIC: The patient is awake, alert, oriented to person, place, and time. His speech is very clear, slight hoarseness due to be endotracheal tube placement in the past. No ptosis. Extraocular movement on his right side is normal. However, his fawning in frontal region is more during rest time. Neck flexion is good. Muscle strength in all 4 extremities is normal. Again, fasciculation noted over proximal muscle groups in both upper and lower extremities with significant atrophy in the hand intrinsic muscle groups noted. MOTOR: Asymmetry reflexes hyperreflexic on both knees. Ankles are absent. Plantars are mute. SENSORY: Grossly intact. RECOMMENDATIONS: 1. The patient is recommended to have MRI of the brain and cervical spine with and without gadolinium: 2. Blood workup to rule out infectious, inflammatory and paraneoplastic disease for his atypical motor neuron disease. 3. The patient should be kept on DVT prophylaxis and physical therapy should be started at present. The patient's condition has been discussed with the resident. Jose Messina MD cc: [id number] TT: 09/20/2016 08:56:22 Confirmation # [id number] Dictation # [id number] [email or web address]
[2016-09-20] MEDS: Enoxaparin 40 mg Syringe SC SCH (09:35)
[2016-09-20 09:40] LABS: ABG ALLEN TEST PO; ARTERIAL BLOOD HGB O2 SAT 95.6 % (95.0-98.0); CARBOXYHEMOGLOBIN 1.1 % (0.5-1.5); DRAW SITE LR; HHB 2.3 % (0.0-5.0); METHEMOGLOBIN 1.1 % (0.0-3.0)
--- NOTE | 2016-09-20 12:45 | CP.CCUPN ---
<Rohan Coleman - Last Filed: 09/20/16 12:42> CCU Subjective - Physician Review Subjective (Free Text): 09/18/16 11:40 Patient seen and examined at the bedside. No acute distress. No acute events overnight. Nursing staff reports no issues. The patient was intubated 2/2 to hypercarbia and non-compliance with BiPAP. The patient is currently on sedation. PRVC 400mL, 12/min, 5, 30%. Today on rounds, the patient's vent setting were changed. The TV was increased to 450mL and the respiratory rate was increased to 14/min. The patient's mag and phos were also replaced. Post rounds, the patient was noted to be hypotensive. The patient was started on IVF for fluid challenge. The patient was also given solu-medrol 125mg IV stat and a scheduled dose of solu-medrol 40mg IV q8. The patient was also started on tube feeds with a rate of 30ml/hr. Nutrition was consulted for a goal rate. 09/19/16 17:24 Patient seen and examined at the bedside. No acute distress. No acute events overnight. Nursing staff reports no issues. Patient remains intubated with minimal sedation. Today on rounds, the patient's sedation was DC and the patient was started on the vent weaning protocol for extubation. Post rounds, the patient was extubated. The patient is tolerating the extubation well. 09/20/16 12:42 Patient seen and examined at the bedside. No acute distress. No acute events overnight. Nursing staff reports no issues. Patient requiring intermittent BiPAP for CO2 retention and SOB. Today on rounds, the patient was placed on BiPAP continuously in preparation for MRI evaluation of brain and neck. Repeat ABG still shows increased CO2. Critical Care Time Spent (in minutes): 60 CCU Objective - Vital Signs / Intake & Output Vital Signs (Last 4 hours): Vital Signs Pulse Resp BP Pulse Ox 09/20/16 11:00 97 H 21 106/64 97 09/20/16 10:00 87 19 104/68 97 09/20/16 09:00 99 H 18 118/79 99 Intake and Output (Last 8hrs): Intake & Output 09/19/16 09/20/16 09/20/16 22:59 06:59 14:59 Intake Total 600 480 170 Output Total 400 600 0 Balance 200 -120 170 Intake: Oral 600 480 170 Output: Urine 400 600 0 Urethral (Browning) 400 600 0 Other: # Voids Urethral (Browning) 0 - Physical Exam Head: Positive for: Atraumatic, Normocephalic, Other (ET Tube in place) Conjunctiva: Positive for: Normal Mouth: Positive for: Moist Mucous Membranes Nose (External): Positive for: Atraumatic Neck: Negative for: JVD, Lymphadenopathy Respiratory/Chest: Positive for: Clear to Auscultation, Good Air Exchange. Negative for: Respiratory Distress, Accessory Muscle Use, Wheezes, Decreased Breath Sounds, Rales, Rhonchi, Tachypneic Cardiovascular: Positive for: Regular Rate and Rhythm, Normal S1, S2, Peripheal Pulses Present. Negative for: Murmurs Abdomen: Positive for: Normal Bowel Sounds. Negative for: Tenderness, Distention, Peritoneal Signs Upper Extremity: Positive for: Normal Inspection. Negative for: Cyanosis, Edema Lower Extremity: Positive for: Normal Inspection. Negative for: Edema Skin: Positive for: Warm, Dry, Normal Color. Negative for: Rashes - Medications Active Medications: Active Medications Generic Name Dose Route Start Last Admin Trade Name Freq PRN Reason Stop Dose Admin Albuterol/Ipratropium 3 ml 09/18/16 14:00 09/20/16 07:50 Duoneb 3 Mg/0.5 Mg (3 Ml) Ud INH 3 ml RQ6 ASA Administration Albuterol/Ipratropium 3 ml 09/18/16 11:29 Duoneb 3 Mg/0.5 Mg (3 Ml) Ud INH RQ2 PRN Shortness of Breath Enoxaparin Sodium 40 mg 09/20/16 10:00 09/20/16 09:35 Lovenox SC 40 mg DAILY ASA Administration Insulin Human Regular 0 unit 09/20/16 11:30 Novolin R SC ACHS ASA Protocol Methylprednisolone 40 mg 09/18/16 14:00 09/20/16 06:53 Solu-Medrol IVP 40 mg Q8 ASA Administration Pantoprazole Sodium 40 mg 09/18/16 10:00 09/20/16 09:35 Protonix Inj IVP 40 mg DAILY ASA Administration - Patient Studies Lab Studies: Lab Studies 09/20/16 09/20/16 09/20/16 Range/Units 11:44 09:37 06:12 WBC 22.7 H (4.8-10.8) K/uL RBC 4.08 L (4.40-5.90) Mil/uL Hgb 12.0 (12.0-18.0) g/dL Hct 38.1 (35.0-51.0) % MCV 93.4 (80.0-94.0) fL MCH 29.4 (27.0-31.0) pg MCHC 31.5 L (33.0-37.0) g/dL RDW 14.0 (11.5-14.5) % Plt Count 160 (130-400) K/uL MPV 9.5 (7.2-11.7) fL Neut % (Auto) 96.2 H (50.0-75.0) % Lymph % (Auto) 1.8 L (20.0-40.0) % [place] % (Auto) 2.0 (0.0-10.0) % Eos % (Auto) 0.0 (0.0-4.0) % Baso % (Auto) 0.0 (0.0-2.0) % Neut # 21.8 H (1.8-7.0) K/uL Lymph # 0.4 L (1.0-4.3) K/uL [place] # 0.5 (0.0-0.8) K/uL Eos # 0.0 (0.0-0.7) K/uL Baso # 0.0 (0.0-0.2) K/uL Neutrophils % (Manual) 90 H (50-75) % Band Neutrophils % 7 H (0-2) % Lymphocytes % (Manual) 2 L (20-40) % Monocytes % (Manual) 1 (0-10) % Toxic Granulation Present Platelet Estimate Normal (NORMAL) Large Platelets Present RBC Morphology Normal Puncture Site Lr pCO2 83 H* (35-45) mm/Hg pO2 103 H (80-100) mm/Hg HCO3 32.1 H (21-28) mmol/L ABG pH 7.28 L (7.35-7.45) ABG Total CO2 41.5 H (22-28) mmol/L ABG O2 Saturation 97.7 (95-98) % ABG Base Excess 9.3 H (-2.0-3.0) mmol/L ABG Hemoglobin 12.1 (11.7-17.4) g/dL ABG Carboxyhemoglobin 1.1 (0.5-1.5) % POC ABG HHb (Measured) 2.3 (0.0-5.0) % ABG Methemoglobin 1.1 (0.0-3.0) % Piotr Test Po A-a O2 Difference 21.0 mm/Hg Respiratory Index 0.2 Hgb O2 Saturation 95.6 (95.0-98.0) % Liter Flow 3.0 FiO2 32.0 % Crit Value Called To Dr. saini Crit Value Called By Rodríguez clemons Crit Value Read Back Y Blood Gas Notified Time 940 Sodium (132-148) mmol/L Potassium (3.6-5.2) mmol/L Chloride (98-107) mmol/L Carbon Dioxide (22-30) mmol/L Anion Gap (10-20) BUN (9-20) mg/dL Creatinine (0.8-1.5) MG/DL Est GFR ( Amer) Est GFR (Non-Af Amer) POC Glucose (mg/dL) 211 H (65-110) mg/dL Random Glucose (75-110) mg/dL Calcium (8.6-10.4) mg/dl Phosphorus (2.5-4.5) mg/dL Magnesium (1.6-2.3) mg/dL Total Bilirubin (0.2-1.3) mg/dL AST (17-59) U/L ALT (21-72) U/L Alkaline Phosphatase (38-126) U/L Total Protein (6.3-8.3) g/dL Albumin (3.5-5.0) g/dL Globulin (2.2-3.9) gm/dL Albumin/Globulin Ratio (1.0-2.1) Gimxp-1-Ghkqljziwuy (83-199) mg/dL Aldolase (<=8.1) U/L Serum Immunofixation 09/20/16 09/20/16 09/20/16 Range/Units 06:09 05:54 00:18 WBC (4.8-10.8) K/uL RBC (4.40-5.90) Mil/uL Hgb (12.0-18.0) g/dL Hct (35.0-51.0) % MCV (80.0-94.0) fL MCH (27.0-31.0) pg MCHC (33.0-37.0) g/dL RDW (11.5-14.5) % Plt Count (130-400) K/uL MPV (7.2-11.7) fL Neut % (Auto) (50.0-75.0) % Lymph % (Auto) (20.0-40.0) % [place] % (Auto) (0.0-10.0) % Eos % (Auto) (0.0-4.0) % Baso % (Auto) (0.0-2.0) % Neut # (1.8-7.0) K/uL Lymph # (1.0-4.3) K/uL [place] # (0.0-0.8) K/uL Eos # (0.0-0.7) K/uL Baso # (0.0-0.2) K/uL Neutrophils % (Manual) (50-75) % Band Neutrophils % (0-2) % Lymphocytes % (Manual) (20-40) % Monocytes % (Manual) (0-10) % Toxic Granulation Platelet Estimate (NORMAL) Large Platelets RBC Morphology Puncture Site pCO2 (35-45) mm/Hg pO2 (80-100) mm/Hg HCO3 (21-28) mmol/L ABG pH (7.35-7.45) ABG Total CO2 (22-28) mmol/L ABG O2 Saturation (95-98) % ABG Base Excess (-2.0-3.0) mmol/L ABG Hemoglobin (11.7-17.4) g/dL ABG Carboxyhemoglobin (0.5-1.5) % POC ABG HHb (Measured) (0.0-5.0) % ABG Methemoglobin (0.0-3.0) % Piotr Test A-a O2 Difference mm/Hg Respiratory Index Hgb O2 Saturation (95.0-98.0) % Liter Flow FiO2 % Crit Value Called To Crit Value Called By Crit Value Read Back Blood Gas Notified Time Sodium 138 (132-148) mmol/L Potassium 4.7 (3.6-5.2) mmol/L Chloride 95 L (98-107) mmol/L Carbon Dioxide 39 H (22-30) mmol/L Anion Gap 9 L (10-20) BUN 18 (9-20) mg/dL Creatinine 0.7 L (0.8-1.5) MG/DL Est GFR ( Amer) > 60 Est GFR (Non-Af Amer) > 60 POC Glucose (mg/dL) 134 H 177 H (65-110) mg/dL Random Glucose 134 H (75-110) mg/dL Calcium 8.4 L (8.6-10.4) mg/dl Phosphorus 3.6 (2.5-4.5) mg/dL Magnesium 2.4 H (1.6-2.3) mg/dL Total Bilirubin 0.6 (0.2-1.3) mg/dL AST 20 (17-59) U/L ALT 30 (21-72) U/L Alkaline Phosphatase 54 (38-126) U/L Total Protein 6.2 L (6.3-8.3) g/dL Albumin 3.3 L (3.5-5.0) g/dL Globulin 2.9 (2.2-3.9) gm/dL Albumin/Globulin Ratio 1.1 (1.0-2.1) Yigkj-2-Ycdhxrunugw (83-199) mg/dL Aldolase (<=8.1) U/L Serum Immunofixation 09/19/16 09/19/16 09/18/16 Range/Units 17:58 05:50 07:08 WBC (4.8-10.8) K/uL RBC (4.40-5.90) Mil/uL Hgb (12.0-18.0) g/dL Hct (35.0-51.0) % MCV (80.0-94.0) fL MCH (27.0-31.0) pg MCHC (33.0-37.0) g/dL RDW (11.5-14.5) % Plt Count (130-400) K/uL MPV (7.2-11.7) fL Neut % (Auto) (50.0-75.0) % Lymph % (Auto) (20.0-40.0) % [place] % (Auto) (0.0-10.0) % Eos % (Auto) (0.0-4.0) % Baso % (Auto) (0.0-2.0) % Neut # (1.8-7.0) K/uL Lymph # (1.0-4.3) K/uL [place] # (0.0-0.8) K/uL Eos # (0.0-0.7) K/uL Baso # (0.0-0.2) K/uL Neutrophils % (Manual) (50-75) % Band Neutrophils % (0-2) % Lymphocytes % (Manual) (20-40) % Monocytes % (Manual) (0-10) % Toxic Granulation Platelet Estimate (NORMAL) Large Platelets RBC Morphology Puncture Site pCO2 (35-45) mm/Hg pO2 (80-100) mm/Hg HCO3 (21-28) mmol/L ABG pH (7.35-7.45) ABG Total CO2 (22-28) mmol/L ABG O2 Saturation (95-98) % ABG Base Excess (-2.0-3.0) mmol/L ABG Hemoglobin (11.7-17.4) g/dL ABG Carboxyhemoglobin (0.5-1.5) % POC ABG HHb (Measured) (0.0-5.0) % ABG Methemoglobin (0.0-3.0) % Piotr Test A-a O2 Difference mm/Hg Respiratory Index Hgb O2 Saturation (95.0-98.0) % Liter Flow FiO2 % Crit Value Called To Crit Value Called By Crit Value Read Back Blood Gas Notified Time Sodium (132-148) mmol/L Potassium (3.6-5.2) mmol/L Chloride (98-107) mmol/L Carbon Dioxide (22-30) mmol/L Anion Gap (10-20) BUN (9-20) mg/dL Creatinine (0.8-1.5) MG/DL Est GFR ( Amer) Est GFR (Non-Af Amer) POC Glucose (mg/dL) 134 H (65-110) mg/dL Random Glucose (75-110) mg/dL Calcium (8.6-10.4) mg/dl Phosphorus (2.5-4.5) mg/dL Magnesium (1.6-2.3) mg/dL Total Bilirubin (0.2-1.3) mg/dL AST (17-59) U/L ALT (21-72) U/L Alkaline Phosphatase (38-126) U/L Total Protein (6.3-8.3) g/dL Albumin (3.5-5.0) g/dL Globulin (2.2-3.9) gm/dL Albumin/Globulin Ratio (1.0-2.1) Fugzt-3-Ukghkksehvd 149 (83-199) mg/dL Aldolase 8.6 H (<=8.1) U/L Serum Immunofixation 09/18/16 Range/Units 07:08 WBC (4.8-10.8) K/uL RBC (4.40-5.90) Mil/uL Hgb (12.0-18.0) g/dL Hct (35.0-51.0) % MCV (80.0-94.0) fL MCH (27.0-31.0) pg MCHC (33.0-37.0) g/dL RDW (11.5-14.5) % Plt Count (130-400) K/uL MPV (7.2-11.7) fL Neut % (Auto) (50.0-75.0) % Lymph % (Auto) (20.0-40.0) % [place] % (Auto) (0.0-10.0) % Eos % (Auto) (0.0-4.0) % Baso % (Auto) (0.0-2.0) % Neut # (1.8-7.0) K/uL Lymph # (1.0-4.3) K/uL [place] # (0.0-0.8) K/uL Eos # (0.0-0.7) K/uL Baso # (0.0-0.2) K/uL Neutrophils % (Manual) (50-75) % Band Neutrophils % (0-2) % Lymphocytes % (Manual) (20-40) % Monocytes % (Manual) (0-10) % Toxic Granulation Platelet Estimate (NORMAL) Large Platelets RBC Morphology Puncture Site pCO2 (35-45) mm/Hg pO2 (80-100) mm/Hg HCO3 (21-28) mmol/L ABG pH (7.35-7.45) ABG Total CO2 (22-28) mmol/L ABG O2 Saturation (95-98) % ABG Base Excess (-2.0-3.0) mmol/L ABG Hemoglobin (11.7-17.4) g/dL ABG Carboxyhemoglobin (0.5-1.5) % POC ABG HHb (Measured) (0.0-5.0) % ABG Methemoglobin (0.0-3.0) % Piotr Test A-a O2 Difference mm/Hg Respiratory Index Hgb O2 Saturation (95.0-98.0) % Liter Flow FiO2 % Crit Value Called To Crit Value Called By Crit Value Read Back Blood Gas Notified Time Sodium (132-148) mmol/L Potassium (3.6-5.2) mmol/L Chloride (98-107) mmol/L Carbon Dioxide (22-30) mmol/L Anion Gap (10-20) BUN (9-20) mg/dL Creatinine (0.8-1.5) MG/DL Est GFR ( Amer) Est GFR (Non-Af Amer) POC Glucose (mg/dL) (65-110) mg/dL Random Glucose (75-110) mg/dL Calcium (8.6-10.4) mg/dl Phosphorus (2.5-4.5) mg/dL Magnesium (1.6-2.3) mg/dL Total Bilirubin (0.2-1.3) mg/dL AST (17-59) U/L ALT (21-72) U/L Alkaline Phosphatase (38-126) U/L Total Protein (6.3-8.3) g/dL Albumin (3.5-5.0) g/dL Globulin (2.2-3.9) gm/dL Albumin/Globulin Ratio (1.0-2.1) Sckrq-1-Nmwokybnsqt (83-199) mg/dL Aldolase (<=8.1) U/L Serum Immunofixation See note Laboratory Results - last 24 hr 09/18/16 09/18/16 09/19/16 07:08 07:08 05:50 WBC RBC Hgb Hct MCV MCH MCHC RDW Plt Count MPV Neut % (Auto) Lymph % (Auto) [place] % (Auto) Eos % (Auto) Baso % (Auto) Neut # Lymph # [place] # Eos # Baso # Neutrophils % (Manual) Band Neutrophils % Lymphocytes % (Manual) Monocytes % (Manual) Toxic Granulation Platelet Estimate Large Platelets RBC Morphology Puncture Site pCO2 pO2 HCO3 ABG pH ABG Total CO2 ABG O2 Saturation ABG Base Excess ABG Hemoglobin ABG Carboxyhemoglobin POC ABG HHb (Measured) ABG Methemoglobin Piotr Test A-a O2 Difference Respiratory Index Hgb O2 Saturation Liter Flow FiO2 Crit Value Called To Crit Value Called By Crit Value Read Back Blood Gas Notified Time Sodium Potassium Chloride Carbon Dioxide Anion Gap BUN Creatinine Est GFR ( Amer) Est GFR (Non-Af Amer) POC Glucose (mg/dL) Random Glucose Calcium Phosphorus Magnesium Total Bilirubin AST ALT Alkaline Phosphatase Total Protein Albumin Globulin Albumin/Globulin Ratio Vrxqi-5-Tlebqcradnh 149 Aldolase 8.6 H Serum Immunofixation See note 09/19/16 09/20/16 09/20/16 17:58 00:18 05:54 WBC RBC Hgb Hct MCV MCH MCHC RDW Plt Count MPV Neut % (Auto) Lymph % (Auto) [place] % (Auto) Eos % (Auto) Baso % (Auto) Neut # Lymph # [place] # Eos # Baso # Neutrophils % (Manual) Band Neutrophils % Lymphocytes % (Manual) Monocytes % (Manual) Toxic Granulation Platelet Estimate Large Platelets RBC Morphology Puncture Site pCO2 pO2 HCO3 ABG pH ABG Total CO2 ABG O2 Saturation ABG Base Excess ABG Hemoglobin ABG Carboxyhemoglobin POC ABG HHb (Measured) ABG Methemoglobin Piotr Test A-a O2 Difference Respiratory Index Hgb O2 Saturation Liter Flow FiO2 Crit Value Called To Crit Value Called By Crit Value Read Back Blood Gas Notified Time Sodium Potassium Chloride Carbon Dioxide Anion Gap BUN Creatinine Est GFR ( Amer) Est GFR (Non-Af Amer) POC Glucose (mg/dL) 134 H 177 H 134 H Random Glucose Calcium Phosphorus Magnesium Total Bilirubin AST ALT Alkaline Phosphatase Total Protein Albumin Globulin Albumin/Globulin Ratio Gcuem-7-Fbdzjrgtnpb Aldolase Serum Immunofixation 09/20/16 09/20/16 09/20/16 06:09 06:12 09:37 WBC 22.7 H RBC 4.08 L Hgb 12.0 Hct 38.1 MCV 93.4 MCH 29.4 MCHC 31.5 L RDW 14.0 Plt Count 160 MPV 9.5 Neut % (Auto) 96.2 H Lymph % (Auto) 1.8 L [place] % (Auto) 2.0 Eos % (Auto) 0.0 Baso % (Auto) 0.0 Neut # 21.8 H Lymph # 0.4 L [place] # 0.5 Eos # 0.0 Baso # 0.0 Neutrophils % (Manual) 90 H Band Neutrophils % 7 H Lymphocytes % (Manual) 2 L Monocytes % (Manual) 1 Toxic Granulation Present Platelet Estimate Normal Large Platelets Present RBC Morphology Normal Puncture Site Lr pCO2 83 H* pO2 103 H HCO3 32.1 H ABG pH 7.28 L ABG Total CO2 41.5 H ABG O2 Saturation 97.7 ABG Base Excess 9.3 H ABG Hemoglobin 12.1 ABG Carboxyhemoglobin 1.1 POC ABG HHb (Measured) 2.3 ABG Methemoglobin 1.1 Piotr Test Po A-a O2 Difference 21.0 Respiratory Index 0.2 Hgb O2 Saturation 95.6 Liter Flow 3.0 FiO2 32.0 Crit Value Called To Dr. saini Crit Value Called By Rodríguez clemons Crit Value Read Back Y Blood Gas Notified Time 940 Sodium 138 Potassium 4.7 Chloride 95 L Carbon Dioxide 39 H Anion Gap 9 L BUN 18 Creatinine 0.7 L Est GFR ( Amer) > 60 Est GFR (Non-Af Amer) > 60 POC Glucose (mg/dL) Random Glucose 134 H Calcium 8.4 L Phosphorus 3.6 Magnesium 2.4 H Total Bilirubin 0.6 AST 20 ALT 30 Alkaline Phosphatase 54 Total Protein 6.2 L Albumin 3.3 L Globulin 2.9 Albumin/Globulin Ratio 1.1 Quofp-2-Qxelxjcgqjc Aldolase Serum Immunofixation 09/20/16 11:44 WBC RBC Hgb Hct MCV MCH MCHC RDW Plt Count MPV Neut % (Auto) Lymph % (Auto) [place] % (Auto) Eos % (Auto) Baso % (Auto) Neut # Lymph # [place] # Eos # Baso # Neutrophils % (Manual) Band Neutrophils % Lymphocytes % (Manual) Monocytes % (Manual) Toxic Granulation Platelet Estimate Large Platelets RBC Morphology Puncture Site pCO2 pO2 HCO3 ABG pH ABG Total CO2 ABG O2 Saturation ABG Base Excess ABG Hemoglobin ABG Carboxyhemoglobin POC ABG HHb (Measured) ABG Methemoglobin Piotr Test A-a O2 Difference Respiratory Index Hgb O2 Saturation Liter Flow FiO2 Crit Value Called To Crit Value Called By Crit Value Read Back Blood Gas Notified Time Sodium Potassium Chloride Carbon Dioxide Anion Gap BUN Creatinine Est GFR ( Amer) Est GFR (Non-Af Amer) POC Glucose (mg/dL) 211 H Random Glucose Calcium Phosphorus Magnesium Total Bilirubin AST ALT Alkaline Phosphatase Total Protein Albumin Globulin Albumin/Globulin Ratio Yjuis-3-Tuvkcdnpmbt Aldolase Serum Immunofixation Fingerstick Blood Sugar Results: 134 Review of Systems - Review of Systems All systems: reviewed and no additional remarkable complaints except Critical Care Progress Note - Extremities/Vascular Does the Patient have a Central Venous Catheter?: No Does the Patient need a Central Venous Catheter?: No Does the Patient have a Browning Catheter?: No Does the Patient need a Browning Catheter?: No - Prophylaxis GI Prophylaxis GI: Not Indicated - Prophylaxis DVT Prophylaxis DVT: Lovenox - Nutrition Nutrition: Nutrition Category Date Time Status Heart Healthy Diet [DIET] Diets 09/19/16 Dinner Active Assessment/Plan (1) Acute respiratory failure with hypoxia and hypercarbia Current Visit: Yes Status: Acute (2) Hypercarbia Current Visit: Yes Status: Acute (3) Hypoxia Current Visit: Yes Status: Acute - Assessment and Plan (Free Text) Plan: Patient Status: -Extubated -Stable Neuro: -Dr. Messina following -immunologic studies and NMJ studies pending -MRI evaluation of brain and neck today Cardiovascular: -Stable -intermittent tachycardia- will monitor Pulmonary: -Acute on Chronic Carbondioxide retention : solu-medrol 40mg IV q8 : duonebs -Imaging: : 09/19/16 CXR- Lines and tubes in stable position. Moderate venous congestion. Right hilar prominence. : 09/18/16 CXR- no acute infiltrate/opacity. possible left sided nodule- official read pending : 09/17/16 CXR- no acute disease- official read pending -increasing CO2 retention on ABG -Placed on BiPAP for support Gastrointestinal: -Reg diet Endocrine: -achs sliding scale insulin and accuchecks Renal: -No issues Genitourinary: -monitor I&Os Musculoskeletal: -No acute issues -Rheumatoid Negative Hematology/Oncology: -No issues Infectious Disease: -No issues GI Prophylaxis: Not indicated at this time DVT Prophylaxis: Lovenox 40mg SC daily Case Discussed with Dr. Janeen Coleman PGY1 - Date & Time Date: 09/20/16 Time: 12:46 <Rey Vernon - Last Filed: 09/20/16 13:29> CCU Objective - Vital Signs / Intake & Output Vital Signs (Last 4 hours): Vital Signs Pulse Resp BP Pulse Ox 09/20/16 11:00 97 H 21 106/64 97 09/20/16 10:00 87 19 104/68 97 Intake and Output (Last 8hrs): Intake & Output 09/19/16 09/20/16 09/20/16 22:59 06:59 14:59 Intake Total 600 480 170 Output Total 400 600 0 Balance 200 -120 170 Intake: Oral 600 480 170 Output: Urine 400 600 0 Urethral (Browning) 400 600 0 Other: # Voids Urethral (Browning) 0 - Medications Active Medications: Active Medications Generic Name Dose Route Start Last Admin Trade Name Freq PRN Reason Stop Dose Admin Albuterol/Ipratropium 3 ml 09/18/16 14:00 09/20/16 07:50 Duoneb 3 Mg/0.5 Mg (3 Ml) Ud INH 3 ml RQ6 ASA Administration Albuterol/Ipratropium 3 ml 09/18/16 11:29 Duoneb 3 Mg/0.5 Mg (3 Ml) Ud INH RQ2 PRN Shortness of Breath Enoxaparin Sodium 40 mg 09/20/16 10:00 09/20/16 09:35 Lovenox SC 40 mg DAILY ASA Administration Insulin Human Regular 0 unit 09/20/16 11:30 09/20/16 13:01 Novolin R SC 1 unit ACHS ASA Administration Protocol Methylprednisolone 40 mg 09/18/16 14:00 09/20/16 06:53 Solu-Medrol IVP 40 mg Q8 ASA Administration Pantoprazole Sodium 40 mg 09/18/16 10:00 09/20/16 09:35 Protonix Inj IVP 40 mg DAILY ASA Administration - Patient Studies Lab Studies: Lab Studies 09/20/16 09/20/16 09/20/16 Range/Units 11:44 09:37 06:12 WBC 22.7 H (4.8-10.8) K/uL RBC 4.08 L (4.40-5.90) Mil/uL Hgb 12.0 (12.0-18.0) g/dL Hct 38.1 (35.0-51.0) % MCV 93.4 (80.0-94.0) fL MCH 29.4 (27.0-31.0) pg MCHC 31.5 L (33.0-37.0) g/dL RDW 14.0 (11.5-14.5) % Plt Count 160 (130-400) K/uL MPV 9.5 (7.2-11.7) fL Neut % (Auto) 96.2 H (50.0-75.0) % Lymph % (Auto) 1.8 L (20.0-40.0) % [place] % (Auto) 2.0 (0.0-10.0) % Eos % (Auto) 0.0 (0.0-4.0) % Baso % (Auto) 0.0 (0.0-2.0) % Neut # 21.8 H (1.8-7.0) K/uL Lymph # 0.4 L (1.0-4.3) K/uL [place] # 0.5 (0.0-0.8) K/uL Eos # 0.0 (0.0-0.7) K/uL Baso # 0.0 (0.0-0.2) K/uL Neutrophils % (Manual) 90 H (50-75) % Band Neutrophils % 7 H (0-2) % Lymphocytes % (Manual) 2 L (20-40) % Monocytes % (Manual) 1 (0-10) % Toxic Granulation Present Platelet Estimate Normal (NORMAL) Large Platelets Present RBC Morphology Normal Puncture Site Lr pCO2 83 H* (35-45) mm/Hg pO2 103 H (80-100) mm/Hg HCO3 32.1 H (21-28) mmol/L ABG pH 7.28 L (7.35-7.45) ABG Total CO2 41.5 H (22-28) mmol/L ABG O2 Saturation 97.7 (95-98) % ABG Base Excess 9.3 H (-2.0-3.0) mmol/L ABG Hemoglobin 12.1 (11.7-17.4) g/dL ABG Carboxyhemoglobin 1.1 (0.5-1.5) % POC ABG HHb (Measured) 2.3 (0.0-5.0) % ABG Methemoglobin 1.1 (0.0-3.0) % Piotr Test Po A-a O2 Difference 21.0 mm/Hg Respiratory Index 0.2 Hgb O2 Saturation 95.6 (95.0-98.0) % Liter Flow 3.0 FiO2 32.0 % Crit Value Called To Dr. saini Crit Value Called By Rodríguez clemons Crit Value Read Back Y Blood Gas Notified Time 940 Sodium (132-148) mmol/L Potassium (3.6-5.2) mmol/L Chloride (98-107) mmol/L Carbon Dioxide (22-30) mmol/L Anion Gap (10-20) BUN (9-20) mg/dL Creatinine (0.8-1.5) MG/DL Est GFR ( Amer) Est GFR (Non-Af Amer) POC Glucose (mg/dL) 211 H (65-110) mg/dL Random Glucose (75-110) mg/dL Calcium (8.6-10.4) mg/dl Phosphorus (2.5-4.5) mg/dL Magnesium (1.6-2.3) mg/dL Total Bilirubin (0.2-1.3) mg/dL AST (17-59) U/L ALT (21-72) U/L Alkaline Phosphatase (38-126) U/L Total Protein (6.3-8.3) g/dL Albumin (3.5-5.0) g/dL Globulin (2.2-3.9) gm/dL Albumin/Globulin Ratio (1.0-2.1) [id number] (83-199) mg/dL Aldolase (<=8.1) U/L Serum Immunofixation 09/20/16 09/20/16 09/20/16 Range/Units 06:09 05:54 00:18 WBC (4.8-10.8) K/uL RBC (4.40-5.90) Mil/uL Hgb (12.0-18.0) g/dL Hct (35.0-51.0) % MCV (80.0-94.0) fL MCH (27.0-31.0) pg MCHC (33.0-37.0) g/dL RDW (11.5-14.5) % Plt Count (130-400) K/uL MPV (7.2-11.7) fL Neut % (Auto) (50.0-75.0) % Lymph % (Auto) (20.0-40.0) % [place] % (Auto) (0.0-10.0) % Eos % (Auto) (0.0-4.0) % Baso % (Auto) (0.0-2.0) % Neut # (1.8-7.0) K/uL Lymph # (1.0-4.3) K/uL [place] # (0.0-0.8) K/uL Eos # (0.0-0.7) K/uL Baso # (0.0-0.2) K/uL Neutrophils % (Manual) (50-75) % Band Neutrophils % (0-2) % Lymphocytes % (Manual) (20-40) % Monocytes % (Manual) (0-10) % Toxic Granulation Platelet Estimate (NORMAL) Large Platelets RBC Morphology Puncture Site pCO2 (35-45) mm/Hg pO2 (80-100) mm/Hg HCO3 (21-28) mmol/L ABG pH (7.35-7.45) ABG Total CO2 (22-28) mmol/L ABG O2 Saturation (95-98) % ABG Base Excess (-2.0-3.0) mmol/L ABG Hemoglobin (11.7-17.4) g/dL ABG Carboxyhemoglobin (0.5-1.5) % POC ABG HHb (Measured) (0.0-5.0) % ABG Methemoglobin (0.0-3.0) % Piotr Test A-a O2 Difference mm/Hg Respiratory Index Hgb O2 Saturation (95.0-98.0) % Liter Flow FiO2 % Crit Value Called To Crit Value Called By Crit Value Read Back Blood Gas Notified Time Sodium 138 (132-148) mmol/L Potassium 4.7 (3.6-5.2) mmol/L Chloride 95 L (98-107) mmol/L Carbon Dioxide 39 H (22-30) mmol/L Anion Gap 9 L (10-20) BUN 18 (9-20) mg/dL Creatinine 0.7 L (0.8-1.5) MG/DL Est GFR ( Amer) > 60 Est GFR (Non-Af Amer) > 60 POC Glucose (mg/dL) 134 H 177 H (65-110) mg/dL Random Glucose 134 H (75-110) mg/dL Calcium 8.4 L (8.6-10.4) mg/dl Phosphorus 3.6 (2.5-4.5) mg/dL Magnesium 2.4 H (1.6-2.3) mg/dL Total Bilirubin 0.6 (0.2-1.3) mg/dL AST 20 (17-59) U/L ALT 30 (21-72) U/L Alkaline Phosphatase 54 (38-126) U/L Total Protein 6.2 L (6.3-8.3) g/dL Albumin 3.3 L (3.5-5.0) g/dL Globulin 2.9 (2.2-3.9) gm/dL Albumin/Globulin Ratio 1.1 (1.0-2.1) [id number] (83-199) mg/dL Aldolase (<=8.1) U/L Serum Immunofixation 09/19/16 09/19/16 09/18/16 Range/Units 17:58 05:50 07:08 WBC (4.8-10.8) K/uL RBC (4.40-5.90) Mil/uL Hgb (12.0-18.0) g/dL Hct (35.0-51.0) % MCV (80.0-94.0) fL MCH (27.0-31.0) pg MCHC (33.0-37.0) g/dL RDW (11.5-14.5) % Plt Count (130-400) K/uL MPV (7.2-11.7) fL Neut % (Auto) (50.0-75.0) % Lymph % (Auto) (20.0-40.0) % [place] % (Auto) (0.0-10.0) % Eos % (Auto) (0.0-4.0) % Baso % (Auto) (0.0-2.0) % Neut # (1.8-7.0) K/uL Lymph # (1.0-4.3) K/uL [place] # (0.0-0.8) K/uL Eos # (0.0-0.7) K/uL Baso # (0.0-0.2) K/uL Neutrophils % (Manual) (50-75) % Band Neutrophils % (0-2) % Lymphocytes % (Manual) (20-40) % Monocytes % (Manual) (0-10) % Toxic Granulation Platelet Estimate (NORMAL) Large Platelets RBC Morphology Puncture Site pCO2 (35-45) mm/Hg pO2 (80-100) mm/Hg HCO3 (21-28) mmol/L ABG pH (7.35-7.45) ABG Total CO2 (22-28) mmol/L ABG O2 Saturation (95-98) % ABG Base Excess (-2.0-3.0) mmol/L ABG Hemoglobin (11.7-17.4) g/dL ABG Carboxyhemoglobin (0.5-1.5) % POC ABG HHb (Measured) (0.0-5.0) % ABG Methemoglobin (0.0-3.0) % Piotr Test A-a O2 Difference mm/Hg Respiratory Index Hgb O2 Saturation (95.0-98.0) % Liter Flow FiO2 % Crit Value Called To Crit Value Called By Crit Value Read Back Blood Gas Notified Time Sodium (132-148) mmol/L Potassium (3.6-5.2) mmol/L Chloride (98-107) mmol/L Carbon Dioxide (22-30) mmol/L Anion Gap (10-20) BUN (9-20) mg/dL Creatinine (0.8-1.5) MG/DL Est GFR ( Amer) Est GFR (Non-Af Amer) POC Glucose (mg/dL) 134 H (65-110) mg/dL Random Glucose (75-110) mg/dL Calcium (8.6-10.4) mg/dl Phosphorus (2.5-4.5) mg/dL Magnesium (1.6-2.3) mg/dL Total Bilirubin (0.2-1.3) mg/dL AST (17-59) U/L ALT (21-72) U/L Alkaline Phosphatase (38-126) U/L Total Protein (6.3-8.3) g/dL Albumin (3.5-5.0) g/dL Globulin (2.2-3.9) gm/dL Albumin/Globulin Ratio (1.0-2.1) Gltxy-5-Mzbchgthpgb 149 (83-199) mg/dL Aldolase 8.6 H (<=8.1) U/L Serum Immunofixation 09/18/16 Range/Units 07:08 WBC (4.8-10.8) K/uL RBC (4.40-5.90) Mil/uL Hgb (12.0-18.0) g/dL Hct (35.0-51.0) % MCV (80.0-94.0) fL MCH (27.0-31.0) pg MCHC (33.0-37.0) g/dL RDW (11.5-14.5) % Plt Count (130-400) K/uL MPV (7.2-11.7) fL Neut % (Auto) (50.0-75.0) % Lymph % (Auto) (20.0-40.0) % [place] % (Auto) (0.0-10.0) % Eos % (Auto) (0.0-4.0) % Baso % (Auto) (0.0-2.0) % Neut # (1.8-7.0) K/uL Lymph # (1.0-4.3) K/uL [place] # (0.0-0.8) K/uL Eos # (0.0-0.7) K/uL Baso # (0.0-0.2) K/uL Neutrophils % (Manual) (50-75) % Band Neutrophils % (0-2) % Lymphocytes % (Manual) (20-40) % Monocytes % (Manual) (0-10) % Toxic Granulation Platelet Estimate (NORMAL) Large Platelets RBC Morphology Puncture Site pCO2 (35-45) mm/Hg pO2 (80-100) mm/Hg HCO3 (21-28) mmol/L ABG pH (7.35-7.45) ABG Total CO2 (22-28) mmol/L ABG O2 Saturation (95-98) % ABG Base Excess (-2.0-3.0) mmol/L ABG Hemoglobin (11.7-17.4) g/dL ABG Carboxyhemoglobin (0.5-1.5) % POC ABG HHb (Measured) (0.0-5.0) % ABG Methemoglobin (0.0-3.0) % Piotr Test A-a O2 Difference mm/Hg Respiratory Index Hgb O2 Saturation (95.0-98.0) % Liter Flow FiO2 % Crit Value Called To Crit Value Called By Crit Value Read Back Blood Gas Notified Time Sodium (132-148) mmol/L Potassium (3.6-5.2) mmol/L Chloride (98-107) mmol/L Carbon Dioxide (22-30) mmol/L Anion Gap (10-20) BUN (9-20) mg/dL Creatinine (0.8-1.5) MG/DL Est GFR ( Amer) Est GFR (Non-Af Amer) POC Glucose (mg/dL) (65-110) mg/dL Random Glucose (75-110) mg/dL Calcium (8.6-10.4) mg/dl Phosphorus (2.5-4.5) mg/dL Magnesium (1.6-2.3) mg/dL Total Bilirubin (0.2-1.3) mg/dL AST (17-59) U/L ALT (21-72) U/L Alkaline Phosphatase (38-126) U/L Total Protein (6.3-8.3) g/dL Albumin (3.5-5.0) g/dL Globulin (2.2-3.9) gm/dL Albumin/Globulin Ratio (1.0-2.1) Mwsgf-1-Rmvyzockayw (83-199) mg/dL Aldolase (<=8.1) U/L Serum Immunofixation See note Laboratory Results - last 24 hr 09/18/16 09/18/16 09/19/16 07:08 07:08 05:50 WBC RBC Hgb Hct MCV MCH MCHC RDW Plt Count MPV Neut % (Auto) Lymph % (Auto) [place] % (Auto) Eos % (Auto) Baso % (Auto) Neut # Lymph # [place] # Eos # Baso # Neutrophils % (Manual) Band Neutrophils % Lymphocytes % (Manual) Monocytes % (Manual) Toxic Granulation Platelet Estimate Large Platelets RBC Morphology Puncture Site pCO2 pO2 HCO3 ABG pH ABG Total CO2 ABG O2 Saturation ABG Base Excess ABG Hemoglobin ABG Carboxyhemoglobin POC ABG HHb (Measured) ABG Methemoglobin Piotr Test A-a O2 Difference Respiratory Index Hgb O2 Saturation Liter Flow FiO2 Crit Value Called To Crit Value Called By Crit Value Read Back Blood Gas Notified Time Sodium Potassium Chloride Carbon Dioxide Anion Gap BUN Creatinine Est GFR ( Amer) Est GFR (Non-Af Amer) POC Glucose (mg/dL) Random Glucose Calcium Phosphorus Magnesium Total Bilirubin AST ALT Alkaline Phosphatase Total Protein Albumin Globulin Albumin/Globulin Ratio Mkyib-8-Myzwepjnagc 149 Aldolase 8.6 H Serum Immunofixation See note 09/19/16 09/20/16 09/20/16 17:58 00:18 05:54 WBC RBC Hgb Hct MCV MCH MCHC RDW Plt Count MPV Neut % (Auto) Lymph % (Auto) [place] % (Auto) Eos % (Auto) Baso % (Auto) Neut # Lymph # [place] # Eos # Baso # Neutrophils % (Manual) Band Neutrophils % Lymphocytes % (Manual) Monocytes % (Manual) Toxic Granulation Platelet Estimate Large Platelets RBC Morphology Puncture Site pCO2 pO2 HCO3 ABG pH ABG Total CO2 ABG O2 Saturation ABG Base Excess ABG Hemoglobin ABG Carboxyhemoglobin POC ABG HHb (Measured) ABG Methemoglobin Piotr Test A-a O2 Difference Respiratory Index Hgb O2 Saturation Liter Flow FiO2 Crit Value Called To Crit Value Called By Crit Value Read Back Blood Gas Notified Time Sodium Potassium Chloride Carbon Dioxide Anion Gap BUN Creatinine Est GFR ( Amer) Est GFR (Non-Af Amer) POC Glucose (mg/dL) 134 H 177 H 134 H Random Glucose Calcium Phosphorus Magnesium Total Bilirubin AST ALT Alkaline Phosphatase Total Protein Albumin Globulin Albumin/Globulin Ratio Kicxi-6-Gfajfgoziuo Aldolase Serum Immunofixation 09/20/16 09/20/16 09/20/16 06:09 06:12 09:37 WBC 22.7 H RBC 4.08 L Hgb 12.0 Hct 38.1 MCV 93.4 MCH 29.4 MCHC 31.5 L RDW 14.0 Plt Count 160 MPV 9.5 Neut % (Auto) 96.2 H Lymph % (Auto) 1.8 L [place] % (Auto) 2.0 Eos % (Auto) 0.0 Baso % (Auto) 0.0 Neut # 21.8 H Lymph # 0.4 L [place] # 0.5 Eos # 0.0 Baso # 0.0 Neutrophils % (Manual) 90 H Band Neutrophils % 7 H Lymphocytes % (Manual) 2 L Monocytes % (Manual) 1 Toxic Granulation Present Platelet Estimate Normal Large Platelets Present RBC Morphology Normal Puncture Site Lr pCO2 83 H* pO2 103 H HCO3 32.1 H ABG pH 7.28 L ABG Total CO2 41.5 H ABG O2 Saturation 97.7 ABG Base Excess 9.3 H ABG Hemoglobin 12.1 ABG Carboxyhemoglobin 1.1 POC ABG HHb (Measured) 2.3 ABG Methemoglobin 1.1 Piotr Test Po A-a O2 Difference 21.0 Respiratory Index 0.2 Hgb O2 Saturation 95.6 Liter Flow 3.0 FiO2 32.0 Crit Value Called To Dr. saini Crit Value Called By Rodríguez clemons Crit Value Read Back Y Blood Gas Notified Time 940 Sodium 138 Potassium 4.7 Chloride 95 L Carbon Dioxide 39 H Anion Gap 9 L BUN 18 Creatinine 0.7 L Est GFR ( Amer) > 60 Est GFR (Non-Af Amer) > 60 POC Glucose (mg/dL) Random Glucose 134 H Calcium 8.4 L Phosphorus 3.6 Magnesium 2.4 H Total Bilirubin 0.6 AST 20 ALT 30 Alkaline Phosphatase 54 Total Protein 6.2 L Albumin 3.3 L Globulin 2.9 Albumin/Globulin Ratio 1.1 Herqb-9-Bhxpahryztx Aldolase Serum Immunofixation 09/20/16 11:44 WBC RBC Hgb Hct MCV MCH MCHC RDW Plt Count MPV Neut % (Auto) Lymph % (Auto) [place] % (Auto) Eos % (Auto) Baso % (Auto) Neut # Lymph # [place] # Eos # Baso # Neutrophils % (Manual) Band Neutrophils % Lymphocytes % (Manual) Monocytes % (Manual) Toxic Granulation Platelet Estimate Large Platelets RBC Morphology Puncture Site pCO2 pO2 HCO3 ABG pH ABG Total CO2 ABG O2 Saturation ABG Base Excess ABG Hemoglobin ABG Carboxyhemoglobin POC ABG HHb (Measured) ABG Methemoglobin Piotr Test A-a O2 Difference Respiratory Index Hgb O2 Saturation Liter Flow FiO2 Crit Value Called To Crit Value Called By Crit Value Read Back Blood Gas Notified Time Sodium Potassium Chloride Carbon Dioxide Anion Gap BUN Creatinine Est GFR ( Amer) Est GFR (Non-Af Amer) POC Glucose (mg/dL) 211 H Random Glucose Calcium Phosphorus Magnesium Total Bilirubin AST ALT Alkaline Phosphatase Total Protein Albumin Globulin Albumin/Globulin Ratio Sxsjx-3-Igdqjqdqwsk Aldolase Serum Immunofixation Critical Care Progress Note - Nutrition Nutrition: Nutrition Category Date Time Status Heart Healthy Diet [DIET] Diets 09/19/16 Dinner Active Attending/Attestation - Attestation I have personally seen and examined this patient.: Yes I have fully participated in the care of the patient.: Yes I have reviewed all pertinent clinical information: Yes Notes (Text): 09/20/16 13:26 I have seen and examined the patient. Medical records, lab studies, and imaging were reviewed by me and a management plan was formulated on multidisciplinary rounds with resident Dr. Coleman. I agree with their above documented assessment and plan. Patient still retaining carbon dioxide, requiring intermittent BIPAP. Will obtain MRI of brain and spine to r/o demyelinating disease or possible cervical stenosis. Patient has low tidal volumes, possibly indicative of a neuromuscular disease. Will f/u serology, neurology following. Critical Care Time 35 minutes. Multi-disciplinary rounds were performed with house staff, nursing, speech therapy, respiratory therapy, pharmacy and nutrition with integrated input from the primary team/attending and other consulting services. The documented time is cumulative and includes review of patient data/exams/labs/chart review and examination of the patient on rounds and throughout the day; time is exclusive of any procedures or teaching time.
--- NOTE | 2016-09-20 13:36 | CP.PCM.PN ---
Subjective - Date & Time of Evaluation Date of Evaluation: 09/20/16 Time of Evaluation: 13:35 - Subjective Subjective: OFF THE VENTILATOR REQUIRING BIPAP CONTINOUS TO RETAIN CO2 MY.GRAVIS W/U PENDING WBC GOING UP ID EVAL D/W FAMILY 09/19 Objective - Vital Signs/Intake and Output Vital Signs (last 24 hours): Temp Pulse Resp BP Pulse Ox 98.6 F 97 H 21 106/64 97 09/20/16 08:00 09/20/16 11:00 09/20/16 11:00 09/20/16 11:00 09/20/16 11:00 Intake and Output: 09/20/16 09/20/16 11:59 23:59 Intake Total 410 0 Output Total 525 0 Balance -115 0 - Medications Medications: Current Medications Albuterol/Ipratropium (Duoneb 3 Mg/0.5 Mg (3 Ml) Ud) 3 ml INH RQ6 ASA Last Admin: 09/20/16 07:50 Dose: 3 ml Albuterol/Ipratropium (Duoneb 3 Mg/0.5 Mg (3 Ml) Ud) 3 ml INH RQ2 PRN PRN Reason: Shortness of Breath Enoxaparin Sodium (Lovenox) 40 mg SC DAILY [facility] Last Admin: 09/20/16 09:35 Dose: 40 mg Insulin Human Regular (Novolin R) 0 unit SC ACHS ASA PRN Reason: Protocol Last Admin: 09/20/16 13:01 Dose: 1 unit Methylprednisolone (Solu-Medrol) 40 mg IVP Q8 [facility] Last Admin: 09/20/16 06:53 Dose: 40 mg Pantoprazole Sodium (Protonix Inj) 40 mg IVP DAILY [facility] Last Admin: 09/20/16 09:35 Dose: 40 mg - Labs Labs: 09/20/16 06:12 09/20/16 06:09 PT 14.6 SECONDS (9.7-12.2) H 09/19/16 05:50 INR 1.3 09/19/16 05:50 APTT 30 SECONDS (21-34) 09/19/16 05:50
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
[2016-09-20] MEDS: cefTRIAXone 2 GM IN NS 2 GM/100 ML BAG IVPB SCH (15:06)
[2016-09-20 17:00] LABS: RBC URINE 10 /hpf (0-3); URINE BACTERIA RARE (<OCC); URINE BILIRUBIN NEGATIVE (NEGATIVE); URINE BLOOD NEGATIVE (NEGATIVE); URINE COLOR Yellow (YELLOW); URINE GLUCOSE (UA) 1+ mg/dL (Normal); URINE KETONE NEGATIVE (NEGATIVE); URINE LEUKOCYTE ESTERASE NEG Leu/uL (Negative); URINE PROTEIN 1+ mg/dL (NEGATIVE); WBC URINE 1 /hpf (0-5)
[2016-09-21 00:06] LABS: ACETYLCHOLINE REC BIND AB <0.30 nmol/L (<=0.30)
[2016-09-21 00:06] LABS: ACETYLCHOLINE REC BIND AB <0.30 nmol/L (<=0.30)
[2016-09-21] MEDS: Albuterol-Ipratrop 3 mg / 0.5 (3 ml) UD INH SCH ×4 (01:41→19:57)
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
[2016-09-21 05:39] LABS: ABG ALLEN TEST POS; ARTERIAL BLOOD HGB O2 SAT 94.8 % (95.0-98.0); CARBOXYHEMOGLOBIN 1.3 % (0.5-1.5); DRAW SITE R RAD; HHB 3.2 % (0.0-5.0); METHEMOGLOBIN 0.7 % (0.0-3.0)
[2016-09-21 06:50] LABS: BASO % 0.1 % (0.0-2.0); HEMATOCRIT 35.9 % (35.0-51.0); LYMPH # 0.4 K/uL (1.0-4.3); LYMPH % 2.6 % (20.0-40.0); MEAN CELL VOLUME 93.6 fL (80.0-94.0); MEAN CORPUSCULAR HEMOGLOBIN 29.7 pg (27.0-31.0); MEAN CORPUSCULAR HGB CONC 31.7 g/dL (33.0-37.0); MEAN PLATELET VOLUME 9.8 fL (7.2-11.7); MONO # 0.4 K/uL (0.0-0.8); MONO % 2.7 % (0.0-10.0); PLATELET COUNT 162 K/uL (130-400); RED CELL DISTRIBUTION WIDTH 14.1 % (11.5-14.5); WHITE BLOOD COUNT 14.4 K/uL (4.8-10.8)
[2016-09-21 07:00] LABS: CHLORIDE 93 mmol/L (98-107)
[2016-09-21] MEDS: MethylPREDNISolone 40 mg Vial IVP SCH ×2 (07:00→13:29)
[2016-09-21 07:01] LABS: POTASSIUM 4.4 mmol/L (3.6-5.2); SODIUM 138 mmol/L (132-148)
[2016-09-21 07:03] LABS: BILIRUBIN,TOTAL 0.5 mg/dL (0.2-1.3); GFR AFRICAN-AMERICAN > 60
[2016-09-21 07:04] LABS: ALB/GLOB RATIO 1.2 (1.0-2.1); ALKALINE PHOSPHATASE 52 U/L (38-126); ALT/SGPT 26 U/L (21-72); AST/SGOT 16 U/L (17-59); BLOOD UREA NITROGEN 21 mg/dL (9-20); CALCIUM 8.2 mg/dl (8.6-10.4); GLUCOSE,RANDOM 119 mg/dL (75-110); TOTAL PROTEIN 5.9 g/dL (6.3-8.3)
[2016-09-21 07:33] LABS: THYROID STIMULATING HORMONE 0.19 mIU/L (0.46-4.68)
[2016-09-21] MEDS: (Novolin R) Insulin Human Regular 100 units/ml vial SC SCH ×4 (07:51→22:00)
--- NOTE | 2016-09-21 08:02 | PN ---
DATE: 09/21/2016 TIME OF EVALUATION: 7:35 a.m. NEUROLOGICAL PROBLEM: Possible motor neuron disease. PHYSICAL EXAMINATION: VITAL SIGNS: 107/69, mean arterial pressure of 81, respiratory rate 18, temperature 97.8, pulse rate 93 regular. NEUROLOGIC: The patient is very comfortable and wearing glasses and watching TV. Speech is normal. Extraocular movement normal. No sign of respiratory distress. No ptosis. Extraocular movement on his right eye is normal. All extremities he can move above the gravity. His deep tendon reflexes ar e symmetric on either side. Plantars are downgoing. Fasciculation noted which is unchanged to yumiko re with the previous exam. WORKUP: MRI of the brain and cervical spine with and without gadolinium is still pending. There is a suspicion of a metallic artifact in the left eye which is going to be cleared by taking x-rays whet her he has radiolucent material or not. If it is clear, the patient should have MRI of the brain as well as the neck. RECENT BLOOD TEST: Shows pCO2 is 40 and pulse ox is 98. The blood workup which was requested for hi s motor neuron disease are all pending which is in progress. The patient's condition has been discussed with the industrial relations representative. Jose Messina MD cc: [id number] TT: 09/21/2016 08:02:08 Confirmation # [id number] Dictation # [id number] ignacio
[2016-09-21 08:49] LABS: NEUTROPHIL 95 % (50-75); TOTAL CELLS COUNTED 100
--- NOTE | 2016-09-21 09:39 | RAD ---
PROCEDURE: Skull series 09/21/2016 HISTORY: R/O metallic artifact - clearance for MRI COMPARISON: Comparison made with prior CT scan of the brain dated 09/17/2016. TECHNIQUE: AP and lateral views of the orbits performed FINDINGS: There are no radiopaque -metallic foreign bodies identified with the exception of dental amalgam and/or crown overlying - capping the right incisor tooth. Previously postsurgical changes of the left globe not appreciated on this exam. Clinical correlation recommended. 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 IMPRESSION: There are no obvious radiopaque metallic foreign body seen on this exam with the exception of dental amalgam in the crown overlying - capping right incisor tooth. . Previously noted postsurgical changes left globe not appreciated on this exam. Clinical correlation with surgical history recommended.
[2016-09-21 09:52] LABS: CARCINOEMBRYONIC ANTIGEN 1.9 ng/mL (0-3.0)
[2016-09-21 09:53] LABS: THYROID STIMULATING HORMONE 0.2 mIU/L (0.46-4.68)
[2016-09-21] MEDS: Enoxaparin 40 mg Syringe SC SCH (10:24)
[2016-09-21 11:25] LABS: FREE T4 1.01 ng/dL (0.78-2.19)
--- NOTE | 2016-09-21 13:43 | CP.PCM.PN ---
Subjective - Date & Time of Evaluation Date of Evaluation: 09/21/16 Time of Evaluation: 13:42 - Subjective Subjective: VS STABLE OOB ON CHAIR STILL RETAINING CO2 MRI ON HOLD DUE TO EYE IMPLANT MYAS. GRAVIS NEG Objective - Vital Signs/Intake and Output Vital Signs (last 24 hours): Temp Pulse Resp BP Pulse Ox 98.7 F 109 H 33 H 105/70 97 09/21/16 08:00 09/21/16 09:00 09/21/16 09:00 09/21/16 08:57 09/21/16 09:00 Intake and Output: 09/21/16 09/21/16 11:59 23:59 Intake Total 350 Output Total 700 Balance -350 - Medications Medications: Current Medications Albuterol/Ipratropium (Duoneb 3 Mg/0.5 Mg (3 Ml) Ud) 3 ml INH RQ6 [facility] [place] Last Admin: 09/21/16 13:29 Dose: 3 ml Albuterol/Ipratropium (Duoneb 3 Mg/0.5 Mg (3 Ml) Ud) 3 ml INH RQ2 PRN PRN Reason: Shortness of Breath Enoxaparin Sodium (Lovenox) 40 mg SC DAILY [facility] [place] Last Admin: 09/21/16 10:24 Dose: 40 mg Ceftriaxone Sodium (Rocephin 2 Gm Ivpb) 2 gm in 100 mls @ 200 mls/hr IVPB Q24H [facility] [place] Last Admin: 09/20/16 15:06 Dose: 200 mls/hr Insulin Human Regular (Novolin R) 0 unit SC ACHS [facility] PRN Reason: Protocol Last Admin: 09/21/16 13:28 Dose: 2 unit Methylprednisolone (Solu-Medrol) 40 mg IVP Q8 [facility] [place] Last Admin: 09/21/16 13:29 Dose: 40 mg Pantoprazole Sodium (Protonix Inj) 40 mg IVP DAILY [facility] [place] Last Admin: 09/21/16 10:25 Dose: 40 mg - Labs Labs: 09/21/16 06:36 09/21/16 06:33 PT 14.6 SECONDS (9.7-12.2) H 09/19/16 05:50 INR 1.3 09/19/16 05:50 APTT 30 SECONDS (21-34) 09/19/16 05:50
--- NOTE | 2016-09-21 14:06 | CP.PCM.PN ---
Subjective - Date & Time of Evaluation Date of Evaluation: 09/21/16 Time of Evaluation: 14:06 - Subjective Subjective: AFEBRILE, OUT OF BED ON CHAIR APPEARS COMFORTABLE. DENIES SHORTNESS OF BREATH. AWAITING MRI BRAIN AND NECK PER NEUROLOGY. LABS REVIEWED; wbc DECREASING TO 14.4 cREATININE 0.6/bun 21 LDH -N, CPK- LOW TSH -LOW HIV 1 AND 2 NONREACTIVE RPR - NONREACTIVE ALICIA - NEGATIVE Objective - Vital Signs/Intake and Output Vital Signs (last 24 hours): Temp Pulse Resp BP Pulse Ox 97.3 F L 122 H 21 111/74 96 09/21/16 12:00 09/21/16 12:04 09/21/16 11:00 09/21/16 10:57 09/21/16 12:04 Intake and Output: 09/21/16 09/21/16 06:59 18:59 Intake Total 200 300 Output Total 700 200 Balance -500 100 - Medications Medications: Current Medications Albuterol/Ipratropium (Duoneb 3 Mg/0.5 Mg (3 Ml) Ud) 3 ml INH RQ6 [facility] Last Admin: 09/21/16 13:29 Dose: 3 ml Albuterol/Ipratropium (Duoneb 3 Mg/0.5 Mg (3 Ml) Ud) 3 ml INH RQ2 PRN PRN Reason: Shortness of Breath Enoxaparin Sodium (Lovenox) 40 mg SC DAILY [facility] Last Admin: 09/21/16 10:24 Dose: 40 mg Ceftriaxone Sodium (Rocephin 2 Gm Ivpb) 2 gm in 100 mls @ 200 mls/hr IVPB Q24H [facility] Last Admin: 09/20/16 15:06 Dose: 200 mls/hr Insulin Human Regular (Novolin R) 0 unit SC ACHS ASA PRN Reason: Protocol Last Admin: 09/21/16 13:28 Dose: 2 unit Methylprednisolone (Solu-Medrol) 40 mg IVP Q8 [facility] Last Admin: 09/21/16 13:29 Dose: 40 mg Pantoprazole Sodium (Protonix Inj) 40 mg IVP DAILY [facility] Last Admin: 09/21/16 10:25 Dose: 40 mg - Labs Labs: 09/21/16 06:36 09/21/16 06:33 PT 14.6 SECONDS (9.7-12.2) H 09/19/16 05:50 INR 1.3 09/19/16 05:50 APTT 30 SECONDS (21-34) 09/19/16 05:50 - Constitutional Appears: No Acute Distress, Cachectic, Chronically Ill - Eye Exam Eye Exam: EOMI, PERRL (LEFT EYE PTOSIS S/P BLUNT TRAUMA.) - ENT Exam ENT Exam: Normal Oropharynx - Neck Exam Neck Exam: Normal Inspection. absent: Meningismus - Respiratory Exam Respiratory Exam: Decreased Breath Sounds - Cardiovascular Exam Cardiovascular Exam: REGULAR RHYTHM, +S1, +S2 - GI/Abdominal Exam GI & Abdominal Exam: Soft, Normal Bowel Sounds. absent: Organomegaly - Extremities Exam Extremities Exam: Normal Capillary Refill. absent: Calf Tenderness, Pedal Edema - Neurological Exam Neurological Exam: Awake, CN II-XII Intact, Oriented x3, Reflexes Normal - Psychiatric Exam Psychiatric exam: Normal Mood - Skin Skin Exam: Normal Color, Warm Assessment and Plan (1) Leukocytosis Assessment & Plan: R/O SEPSIS R/O MPD VS STEROIDS ON IV ROCEPHIN 2 G ONCE A DAY DAILY 09/20/16 W/U IN PROGRESS. Status: Acute (2) Acute respiratory failure with hypoxia and hypercarbia Assessment & Plan: etiology of respiratory failure and hypercarbia not clear ?RISK ADJUSTMENT SPECIALIST ETIOLOGY-MOTOR NEURON DISEASE /MS / ? POLYMYOSITIS. R/O OCCULT MALIGNANCY ( WEIGHT LOSS >20LBS ) Status: Acute (3) Hypercarbia Status: Acute (4) Hypoxia Status: Acute (5) Bronchitis Status: Acute
--- NOTE | 2016-09-21 15:14 | MRI ---
PROCEDURE: MRI BRAIN WITHOUT CONTRAST HISTORY: brain stem pathology COMPARISON: Noncontrast head CT from 09/17/2016 TECHNIQUE: Multiplanar, multisequence MR images of the brain were obtained without intravenous contrast enhancement. FINDINGS: HEMORRHAGE: None DWI: No evidence of an acute or early subacute infarction. BRAIN PARENCHYMA: There are multifocal T2/FLAIR hyperintense fossae in the subcortical and periventricular white matter. There is no mass, mass effect or abnormal extra-axial fluid collection. The midline sagittal structures are normal. VENTRICLES: There is mild age-related global parenchymal volume loss and proportionate enlargement of the ventricles and cortical sulci. CRANIUM: There is normal bone marrow signal pattern. ORBITS: Within normal limits. PARANASAL SINUSES/MASTOIDS: Predominantly clear. VASCULAR SYSTEM: There are normal signal voids in the larger intracranial arteries. OTHER FINDINGS: None. IMPRESSION: 1. No acute intracranial abnormality. 2. Multifocal subcortical and periventricular white matter changes are strictly nonspecific and statistically in this age group most compatible with mild chronic microangiopathic changes. 3. Mild age-related global parenchymal volume loss.
--- NOTE | 2016-09-21 16:08 | MRI ---
PROCEDURE: MR CERVICAL SPINE WITHOUT CONTRAST HISTORY: Cervical stenosis Vs HNP or extradural pathology COMPARISON: None available. TECHNIQUE: Multiecho multiplanar sequences were performed through the cervical spine without the use of intravenous contrast. FINDINGS: There is normal alignment of the cervical vertebral bodies. Cervical lordosis is maintained. Vertebral bodies are normal in height. There is no acute fracture or spondylolisthesis. Bone marrow signal is within normal limits. The cervical cord is normal in contour, caliber and has normal intrinsic signal. C2-C3: No disc herniation, spinal canal stenosis or neural foraminal narrowing. C3-C4: No disc herniation, spinal canal stenosis or neural foraminal narrowing. C4-C5: Broad-based disc osteophyte complex and mild bilateral facet arthropathy resulting severe right and moderate left neural foraminal stenosis. No central spinal canal stenosis. C5-C6: Broad-based disc osteophyte complex and mild bilateral facet arthropathy resulting moderate to severe bilateral neural foraminal stenosis, worse on the right. No central spinal canal stenosis. C6-C7: Broad-based disc osteophyte complex and moderate bilateral facet arthropathy result in moderate right and severe left neural foraminal stenosis. No central spinal canal stenosis. C7-T1: No disc herniation, spinal canal stenosis or neural foraminal narrowing. OTHER FINDINGS: None. IMPRESSION: Mild multilevel degenerative disc disease, worse at C5-6 and C6-7 [id number] right and severe left neural foraminal stenosis. No central spinal canal stenosis
[2016-09-21] MEDS: cefTRIAXone 2 GM IN NS 2 GM/100 ML BAG IVPB SCH (16:16)
--- NOTE | 2016-09-21 16:26 | CP.CCUPN ---
CCU Subjective - Physician Review Events Since Last Encounter (Free Text): 09/21/16 16:21 patient clinically stable, no complaints. CCU Objective - Vital Signs / Intake & Output Vital Signs (Last 4 hours): Vital Signs Temp Pulse Resp BP Pulse Ox 09/21/16 16:00 97.6 F 96 H 13 100 09/21/16 15:57 96 H 28 H 112/68 100 09/21/16 15:51 97 H Intake and Output (Last 8hrs): Intake & Output 09/21/16 09/21/16 09/21/16 06:59 14:59 22:59 Intake Total 50 300 Output Total 700 200 Balance -650 100 Intake: Intake, IV Amount 0 0 Right Wrist 0 0 Oral 50 300 Output: Urine 700 200 Urine, Voided 700 200 - Physical Exam Head: Positive for: Atraumatic, Normocephalic, Other (ET Tube in place) Conjunctiva: Positive for: Normal Mouth: Positive for: Moist Mucous Membranes Nose (External): Positive for: Atraumatic Neck: Negative for: JVD, Lymphadenopathy Respiratory/Chest: Positive for: Clear to Auscultation, Good Air Exchange. Negative for: Respiratory Distress, Accessory Muscle Use, Wheezes, Decreased Breath Sounds, Rales, Rhonchi, Tachypneic Cardiovascular: Positive for: Regular Rate and Rhythm, Normal S1, S2, Peripheal Pulses Present. Negative for: Murmurs Abdomen: Positive for: Normal Bowel Sounds. Negative for: Tenderness, Distention, Peritoneal Signs Upper Extremity: Positive for: Normal Inspection. Negative for: Cyanosis, Edema Lower Extremity: Positive for: Normal Inspection. Negative for: Edema Skin: Positive for: Warm, Dry, Normal Color. Negative for: Rashes - Medications Active Medications: Active Medications Generic Name Dose Route Start Last Admin Trade Name Freq PRN Reason Stop Dose Admin Albuterol/Ipratropium 3 ml 09/18/16 14:00 09/21/16 13:29 Duoneb 3 Mg/0.5 Mg (3 Ml) Ud INH 3 ml RQ6 ASA Administration Albuterol/Ipratropium 3 ml 09/18/16 11:29 Duoneb 3 Mg/0.5 Mg (3 Ml) Ud INH RQ2 PRN Shortness of Breath Enoxaparin Sodium 40 mg 09/20/16 10:00 09/21/16 10:24 Lovenox SC 40 mg DAILY ASA Administration Ceftriaxone Sodium 2 gm in 100 mls @ 200 mls/hr 09/20/16 15:00 09/21/16 16:16 Rocephin 2 Gm Ivpb IVPB 200 mls/hr Q24H ASA Administration Insulin Human Regular 0 unit 09/20/16 11:30 09/21/16 16:17 Novolin R SC 1 unit ACHS ASA Administration Protocol Methylprednisolone 40 mg 09/18/16 14:00 09/21/16 13:29 Solu-Medrol IVP 40 mg Q8 ASA Administration Pantoprazole Sodium 40 mg 09/18/16 10:00 09/21/16 10:25 Protonix Inj IVP 40 mg DAILY ASA Administration - Patient Studies Lab Studies: Microbiology Studies 09/20/16 16:30 Urine Culture - Final Urine No Growth (<1,000 CFU/ML) 09/20/16 16:30 Group A Strep Throat Culture - Final Throat NO BETA STREP GROUP A ISOLATED. Lab Studies 09/21/16 09/21/16 09/21/16 Range/Units 16:02 11:30 07:54 WBC (4.8-10.8) K/uL RBC (4.40-5.90) Mil/uL Hgb (12.0-18.0) g/dL Hct (35.0-51.0) % MCV (80.0-94.0) fL MCH (27.0-31.0) pg MCHC (33.0-37.0) g/dL RDW (11.5-14.5) % Plt Count (130-400) K/uL MPV (7.2-11.7) fL Neut % (Auto) (50.0-75.0) % Lymph % (Auto) (20.0-40.0) % [place] % (Auto) (0.0-10.0) % Eos % (Auto) (0.0-4.0) % Baso % (Auto) (0.0-2.0) % Neut # (1.8-7.0) K/uL Lymph # (1.0-4.3) K/uL [place] # (0.0-0.8) K/uL Eos # (0.0-0.7) K/uL Baso # (0.0-0.2) K/uL Neutrophils % (Manual) (50-75) % Lymphocytes % (Manual) (20-40) % Monocytes % (Manual) (0-10) % Platelet Estimate (NORMAL) RBC Morphology Puncture Site pCO2 (35-45) mm/Hg pO2 (80-100) mm/Hg HCO3 (21-28) mmol/L ABG pH (7.35-7.45) ABG Total CO2 (22-28) mmol/L ABG O2 Saturation (95-98) % ABG Base Excess (-2.0-3.0) mmol/L ABG Hemoglobin (11.7-17.4) g/dL ABG Carboxyhemoglobin (0.5-1.5) % POC ABG HHb (Measured) (0.0-5.0) % ABG Methemoglobin (0.0-3.0) % Piotr Test A-a O2 Difference mm/Hg Respiratory Index Hgb O2 Saturation (95.0-98.0) % FiO2 % Inspiratory BiPAP Expiratory BiPAP Crit Value Called To Crit Value Called By Crit Value Read Back Blood Gas Notified Time Sodium (132-148) mmol/L Potassium (3.6-5.2) mmol/L Chloride (98-107) mmol/L Carbon Dioxide (22-30) mmol/L Anion Gap (10-20) BUN (9-20) mg/dL Creatinine (0.8-1.5) MG/DL Est GFR ( Amer) Est GFR (Non-Af Amer) POC Glucose (mg/dL) 185 H 239 H (65-110) mg/dL Random Glucose (75-110) mg/dL Calcium (8.6-10.4) mg/dl Total Bilirubin (0.2-1.3) mg/dL AST (17-59) U/L ALT (21-72) U/L Alkaline Phosphatase (38-126) U/L Lactate Dehydrogenase 389 (313-618) U/L Total Creatine Kinase 22 L (55-170) U/L Total Protein (6.3-8.3) g/dL Albumin (3.5-5.0) g/dL Globulin (2.2-3.9) gm/dL Albumin/Globulin Ratio (1.0-2.1) Aldolase (<=8.1) U/L Angiotensin Convert Enz (9-67) U/L Carcinoembryonic Ag 1.9 (0-3.0) ng/mL Free T4 (0.78-2.19) ng/dL TSH 3rd Generation 0.20 L (0.46-4.68) mIU/L Urine Color (YELLOW) Urine Clarity (Clear) Urine pH (5.0-8.0) Ur Specific [place] (1.003-1.030) Urine Protein (NEGATIVE) mg/dL Urine Glucose (UA) (Normal) mg/dL Urine Ketones (NEGATIVE) mg/dL Urine Blood (NEGATIVE) Urine Nitrate (NEGATIVE) Urine Bilirubin (NEGATIVE) Urine Urobilinogen (0.2-1.0) mg/dL Ur Leukocyte Esterase (Negative) Jluis/uL Urine WBC (Auto) (0-5) /hpf Urine RBC (Auto) (0-3) /hpf Urine Bacteria (<OCC) Broad Casts (0-1) /lpf ALICIA 6 Profile (NEGATIVE) Acetylchol Rcpt Bind Ab (<=0.30) nmol/L HIV 1&2 Antibody Screen (NEGATIVE) Influenza Typ A,B (EIA) (NEGATIVE) 09/21/16 09/21/16 09/21/16 Range/Units 07:16 06:36 06:33 WBC 14.4 H (4.8-10.8) K/uL RBC 3.83 L (4.40-5.90) Mil/uL Hgb 11.4 L (12.0-18.0) g/dL Hct 35.9 (35.0-51.0) % MCV 93.6 (80.0-94.0) fL MCH 29.7 (27.0-31.0) pg MCHC 31.7 L (33.0-37.0) g/dL RDW 14.1 (11.5-14.5) % Plt Count 162 (130-400) K/uL MPV 9.8 (7.2-11.7) fL Neut % (Auto) 94.6 H (50.0-75.0) % Lymph % (Auto) 2.6 L (20.0-40.0) % [place] % (Auto) 2.7 (0.0-10.0) % Eos % (Auto) 0.0 (0.0-4.0) % Baso % (Auto) 0.1 (0.0-2.0) % Neut # 13.6 H (1.8-7.0) K/uL Lymph # 0.4 L (1.0-4.3) K/uL [place] # 0.4 (0.0-0.8) K/uL Eos # 0.0 (0.0-0.7) K/uL Baso # 0.0 (0.0-0.2) K/uL Neutrophils % (Manual) 95 H (50-75) % Lymphocytes % (Manual) 4 L (20-40) % Monocytes % (Manual) 1 (0-10) % Platelet Estimate Normal (NORMAL) RBC Morphology Normal Puncture Site pCO2 (35-45) mm/Hg pO2 (80-100) mm/Hg HCO3 (21-28) mmol/L ABG pH (7.35-7.45) ABG Total CO2 (22-28) mmol/L ABG O2 Saturation (95-98) % ABG Base Excess (-2.0-3.0) mmol/L ABG Hemoglobin (11.7-17.4) g/dL ABG Carboxyhemoglobin (0.5-1.5) % POC ABG HHb (Measured) (0.0-5.0) % ABG Methemoglobin (0.0-3.0) % Piotr Test A-a O2 Difference mm/Hg Respiratory Index Hgb O2 Saturation (95.0-98.0) % FiO2 % Inspiratory BiPAP Expiratory BiPAP Crit Value Called To Crit Value Called By Crit Value Read Back Blood Gas Notified Time Sodium 138 (132-148) mmol/L Potassium 4.4 (3.6-5.2) mmol/L Chloride 93 L (98-107) mmol/L Carbon Dioxide (22-30) mmol/L Anion Gap 9 L (10-20) BUN 21 H (9-20) mg/dL Creatinine 0.6 L (0.8-1.5) MG/DL Est GFR ( Amer) > 60 Est GFR (Non-Af Amer) > 60 POC Glucose (mg/dL) 127 H (65-110) mg/dL Random Glucose 119 H (75-110) mg/dL Calcium 8.2 L (8.6-10.4) mg/dl Total Bilirubin 0.5 (0.2-1.3) mg/dL AST 16 L (17-59) U/L ALT 26 (21-72) U/L Alkaline Phosphatase 52 (38-126) U/L Lactate Dehydrogenase (313-618) U/L Total Creatine Kinase (55-170) U/L Total Protein 5.9 L (6.3-8.3) g/dL Albumin 3.2 L (3.5-5.0) g/dL Globulin 2.7 (2.2-3.9) gm/dL Albumin/Globulin Ratio 1.2 (1.0-2.1) Aldolase (<=8.1) U/L Angiotensin Convert Enz (9-67) U/L Carcinoembryonic Ag (0-3.0) ng/mL Free T4 (0.78-2.19) ng/dL TSH 3rd Generation (0.46-4.68) mIU/L Urine Color (YELLOW) Urine Clarity (Clear) Urine pH (5.0-8.0) Ur Specific [place] (1.003-1.030) Urine Protein (NEGATIVE) mg/dL Urine Glucose (UA) (Normal) mg/dL Urine Ketones (NEGATIVE) mg/dL Urine Blood (NEGATIVE) Urine Nitrate (NEGATIVE) Urine Bilirubin (NEGATIVE) Urine Urobilinogen (0.2-1.0) mg/dL Ur Leukocyte Esterase (Negative) Jluis/uL Urine WBC (Auto) (0-5) /hpf Urine RBC (Auto) (0-3) /hpf Urine Bacteria (<OCC) Broad Casts (0-1) /lpf ALICIA 6 Profile (NEGATIVE) Acetylchol Rcpt Bind Ab (<=0.30) nmol/L HIV 1&2 Antibody Screen (NEGATIVE) Influenza Typ A,B (EIA) (NEGATIVE) 09/21/16 09/21/16 09/21/16 Range/Units 06:33 06:33 05:32 WBC (4.8-10.8) K/uL RBC (4.40-5.90) Mil/uL Hgb (12.0-18.0) g/dL Hct (35.0-51.0) % MCV (80.0-94.0) fL MCH (27.0-31.0) pg MCHC (33.0-37.0) g/dL RDW (11.5-14.5) % Plt Count (130-400) K/uL MPV (7.2-11.7) fL Neut % (Auto) (50.0-75.0) % Lymph % (Auto) (20.0-40.0) % [place] % (Auto) (0.0-10.0) % Eos % (Auto) (0.0-4.0) % Baso % (Auto) (0.0-2.0) % Neut # (1.8-7.0) K/uL Lymph # (1.0-4.3) K/uL [place] # (0.0-0.8) K/uL Eos # (0.0-0.7) K/uL Baso # (0.0-0.2) K/uL Neutrophils % (Manual) (50-75) % Lymphocytes % (Manual) (20-40) % Monocytes % (Manual) (0-10) % Platelet Estimate (NORMAL) RBC Morphology Puncture Site R rad pCO2 81 H* (35-45) mm/Hg pO2 80 (80-100) mm/Hg HCO3 37.8 H (21-28) mmol/L ABG pH 7.36 (7.35-7.45) ABG Total CO2 48.3 H (22-28) mmol/L ABG O2 Saturation 96.7 (95-98) % ABG Base Excess 16.6 H (-2.0-3.0) mmol/L ABG Hemoglobin 12.0 (11.7-17.4) g/dL ABG Carboxyhemoglobin 1.3 (0.5-1.5) % POC ABG HHb (Measured) 3.2 (0.0-5.0) % ABG Methemoglobin 0.7 (0.0-3.0) % Piotr Test Pos A-a O2 Difference 33.0 mm/Hg Respiratory Index 0.4 Hgb O2 Saturation 94.8 L (95.0-98.0) % FiO2 30.0 % Inspiratory BiPAP 10 Expiratory BiPAP 5 Crit Value Called To Miles wong rn Crit Value Called By Aury berry rt Crit Value Read Back Y Blood Gas Notified Time 540 Sodium (132-148) mmol/L Potassium (3.6-5.2) mmol/L Chloride (98-107) mmol/L Carbon Dioxide (22-30) mmol/L Anion Gap (10-20) BUN (9-20) mg/dL Creatinine (0.8-1.5) MG/DL Est GFR ( Amer) Est GFR (Non-Af Amer) POC Glucose (mg/dL) (65-110) mg/dL Random Glucose (75-110) mg/dL Calcium (8.6-10.4) mg/dl Total Bilirubin (0.2-1.3) mg/dL AST (17-59) U/L ALT (21-72) U/L Alkaline Phosphatase (38-126) U/L Lactate Dehydrogenase (313-618) U/L Total Creatine Kinase (55-170) U/L Total Protein (6.3-8.3) g/dL Albumin (3.5-5.0) g/dL Globulin (2.2-3.9) gm/dL Albumin/Globulin Ratio (1.0-2.1) Aldolase (<=8.1) U/L Angiotensin Convert Enz (9-67) U/L Carcinoembryonic Ag (0-3.0) ng/mL Free T4 1.01 (0.78-2.19) ng/dL TSH 3rd Generation 0.19 L (0.46-4.68) mIU/L Urine Color (YELLOW) Urine Clarity (Clear) Urine pH (5.0-8.0) Ur Specific [place] (1.003-1.030) Urine Protein (NEGATIVE) mg/dL Urine Glucose (UA) (Normal) mg/dL Urine Ketones (NEGATIVE) mg/dL Urine Blood (NEGATIVE) Urine Nitrate (NEGATIVE) Urine Bilirubin (NEGATIVE) Urine Urobilinogen (0.2-1.0) mg/dL Ur Leukocyte Esterase (Negative) Jluis/uL Urine WBC (Auto) (0-5) /hpf Urine RBC (Auto) (0-3) /hpf Urine Bacteria (<OCC) Broad Casts (0-1) /lpf ALICIA 6 Profile (NEGATIVE) Acetylchol Rcpt Bind Ab (<=0.30) nmol/L HIV 1&2 Antibody Screen Negative (NEGATIVE) Influenza Typ A,B (EIA) (NEGATIVE) 09/20/16 09/20/16 09/20/16 Range/Units 21:26 16:58 16:24 WBC (4.8-10.8) K/uL RBC (4.40-5.90) Mil/uL Hgb (12.0-18.0) g/dL Hct (35.0-51.0) % MCV (80.0-94.0) fL MCH (27.0-31.0) pg MCHC (33.0-37.0) g/dL RDW (11.5-14.5) % Plt Count (130-400) K/uL MPV (7.2-11.7) fL Neut % (Auto) (50.0-75.0) % Lymph % (Auto) (20.0-40.0) % [place] % (Auto) (0.0-10.0) % Eos % (Auto) (0.0-4.0) % Baso % (Auto) (0.0-2.0) % Neut # (1.8-7.0) K/uL Lymph # (1.0-4.3) K/uL [place] # (0.0-0.8) K/uL Eos # (0.0-0.7) K/uL Baso # (0.0-0.2) K/uL Neutrophils % (Manual) (50-75) % Lymphocytes % (Manual) (20-40) % Monocytes % (Manual) (0-10) % Platelet Estimate (NORMAL) RBC Morphology Puncture Site pCO2 (35-45) mm/Hg pO2 (80-100) mm/Hg HCO3 (21-28) mmol/L ABG pH (7.35-7.45) ABG Total CO2 (22-28) mmol/L ABG O2 Saturation (95-98) % ABG Base Excess (-2.0-3.0) mmol/L ABG Hemoglobin (11.7-17.4) g/dL ABG Carboxyhemoglobin (0.5-1.5) % POC ABG HHb (Measured) (0.0-5.0) % ABG Methemoglobin (0.0-3.0) % Piotr Test A-a O2 Difference mm/Hg Respiratory Index Hgb O2 Saturation (95.0-98.0) % FiO2 % Inspiratory BiPAP Expiratory BiPAP Crit Value Called To Crit Value Called By Crit Value Read Back Blood Gas Notified Time Sodium (132-148) mmol/L Potassium (3.6-5.2) mmol/L Chloride (98-107) mmol/L Carbon Dioxide (22-30) mmol/L Anion Gap (10-20) BUN (9-20) mg/dL Creatinine (0.8-1.5) MG/DL Est GFR ( Amer) Est GFR (Non-Af Amer) POC Glucose (mg/dL) 236 H 196 H (65-110) mg/dL Random Glucose (75-110) mg/dL Calcium (8.6-10.4) mg/dl Total Bilirubin (0.2-1.3) mg/dL AST (17-59) U/L ALT (21-72) U/L Alkaline Phosphatase (38-126) U/L Lactate Dehydrogenase (313-618) U/L Total Creatine Kinase (55-170) U/L Total Protein (6.3-8.3) g/dL Albumin (3.5-5.0) g/dL Globulin (2.2-3.9) gm/dL Albumin/Globulin Ratio (1.0-2.1) Aldolase (<=8.1) U/L Angiotensin Convert Enz (9-67) U/L Carcinoembryonic Ag (0-3.0) ng/mL Free T4 (0.78-2.19) ng/dL TSH 3rd Generation (0.46-4.68) mIU/L Urine Color Yellow (YELLOW) Urine Clarity Clear (Clear) Urine pH 5.0 (5.0-8.0) Ur Specific [place] 1.034 H (1.003-1.030) Urine Protein 1+ H (NEGATIVE) mg/dL Urine Glucose (UA) 1+ H (Normal) mg/dL Urine Ketones Negative (NEGATIVE) mg/dL Urine Blood Negative (NEGATIVE) Urine Nitrate Negative (NEGATIVE) Urine Bilirubin Negative (NEGATIVE) Urine Urobilinogen 4.0 (0.2-1.0) mg/dL Ur Leukocyte Esterase Neg (Negative) Jluis/uL Urine WBC (Auto) 1 (0-5) /hpf Urine RBC (Auto) 10 H (0-3) /hpf Urine Bacteria Rare (<OCC) Broad Casts 1 (0-1) /lpf ALICIA 6 Profile (NEGATIVE) Acetylchol Rcpt Bind Ab (<=0.30) nmol/L HIV 1&2 Antibody Screen (NEGATIVE) Influenza Typ A,B (EIA) (NEGATIVE) 09/20/16 09/20/16 09/19/16 Range/Units 16:24 06:12 08:26 WBC (4.8-10.8) K/uL RBC (4.40-5.90) Mil/uL Hgb (12.0-18.0) g/dL Hct (35.0-51.0) % MCV (80.0-94.0) fL MCH (27.0-31.0) pg MCHC (33.0-37.0) g/dL RDW (11.5-14.5) % Plt Count (130-400) K/uL MPV (7.2-11.7) fL Neut % (Auto) (50.0-75.0) % Lymph % (Auto) (20.0-40.0) % [place] % (Auto) (0.0-10.0) % Eos % (Auto) (0.0-4.0) % Baso % (Auto) (0.0-2.0) % Neut # (1.8-7.0) K/uL Lymph # (1.0-4.3) K/uL [place] # (0.0-0.8) K/uL Eos # (0.0-0.7) K/uL Baso # (0.0-0.2) K/uL Neutrophils % (Manual) (50-75) % Lymphocytes % (Manual) (20-40) % Monocytes % (Manual) (0-10) % Platelet Estimate (NORMAL) RBC Morphology Puncture Site pCO2 (35-45) mm/Hg pO2 (80-100) mm/Hg HCO3 (21-28) mmol/L ABG pH (7.35-7.45) ABG Total CO2 (22-28) mmol/L ABG O2 Saturation (95-98) % ABG Base Excess (-2.0-3.0) mmol/L ABG Hemoglobin (11.7-17.4) g/dL ABG Carboxyhemoglobin (0.5-1.5) % POC ABG HHb (Measured) (0.0-5.0) % ABG Methemoglobin (0.0-3.0) % Piotr Test A-a O2 Difference mm/Hg Respiratory Index Hgb O2 Saturation (95.0-98.0) % FiO2 % Inspiratory BiPAP Expiratory BiPAP Crit Value Called To Crit Value Called By Crit Value Read Back Blood Gas Notified Time Sodium (132-148) mmol/L Potassium (3.6-5.2) mmol/L Chloride (98-107) mmol/L Carbon Dioxide (22-30) mmol/L Anion Gap (10-20) BUN (9-20) mg/dL Creatinine (0.8-1.5) MG/DL Est GFR ( Amer) Est GFR (Non-Af Amer) POC Glucose (mg/dL) (65-110) mg/dL Random Glucose (75-110) mg/dL Calcium (8.6-10.4) mg/dl Total Bilirubin (0.2-1.3) mg/dL AST (17-59) U/L ALT (21-72) U/L Alkaline Phosphatase (38-126) U/L Lactate Dehydrogenase (313-618) U/L Total Creatine Kinase (55-170) U/L Total Protein (6.3-8.3) g/dL Albumin (3.5-5.0) g/dL Globulin (2.2-3.9) gm/dL Albumin/Globulin Ratio (1.0-2.1) Aldolase 8.0 (<=8.1) U/L Angiotensin Convert Enz <7 L (9-67) U/L Carcinoembryonic Ag (0-3.0) ng/mL Free T4 (0.78-2.19) ng/dL TSH 3rd Generation (0.46-4.68) mIU/L Urine Color (YELLOW) Urine Clarity (Clear) Urine pH (5.0-8.0) Ur Specific [place] (1.003-1.030) Urine Protein (NEGATIVE) mg/dL Urine Glucose (UA) (Normal) mg/dL Urine Ketones (NEGATIVE) mg/dL Urine Blood (NEGATIVE) Urine Nitrate (NEGATIVE) Urine Bilirubin (NEGATIVE) Urine Urobilinogen (0.2-1.0) mg/dL Ur Leukocyte Esterase (Negative) Jluis/uL Urine WBC (Auto) (0-5) /hpf Urine RBC (Auto) (0-3) /hpf Urine Bacteria (<OCC) Broad Casts (0-1) /lpf ALICAI 6 Profile Negative (NEGATIVE) Acetylchol Rcpt Bind Ab (<=0.30) nmol/L HIV 1&2 Antibody Screen (NEGATIVE) Influenza Typ A,B (EIA) Negative for flu a/b (NEGATIVE) 09/18/16 09/18/16 Range/Units 10:19 07:08 WBC (4.8-10.8) K/uL RBC (4.40-5.90) Mil/uL Hgb (12.0-18.0) g/dL Hct (35.0-51.0) % MCV (80.0-94.0) fL MCH (27.0-31.0) pg MCHC (33.0-37.0) g/dL RDW (11.5-14.5) % Plt Count (130-400) K/uL MPV (7.2-11.7) fL Neut % (Auto) (50.0-75.0) % Lymph % (Auto) (20.0-40.0) % [place] % (Auto) (0.0-10.0) % Eos % (Auto) (0.0-4.0) % Baso % (Auto) (0.0-2.0) % Neut # (1.8-7.0) K/uL Lymph # (1.0-4.3) K/uL [place] # (0.0-0.8) K/uL Eos # (0.0-0.7) K/uL Baso # (0.0-0.2) K/uL Neutrophils % (Manual) (50-75) % Lymphocytes % (Manual) (20-40) % Monocytes % (Manual) (0-10) % Platelet Estimate (NORMAL) RBC Morphology Puncture Site pCO2 (35-45) mm/Hg pO2 (80-100) mm/Hg HCO3 (21-28) mmol/L ABG pH (7.35-7.45) ABG Total CO2 (22-28) mmol/L ABG O2 Saturation (95-98) % ABG Base Excess (-2.0-3.0) mmol/L ABG Hemoglobin (11.7-17.4) g/dL ABG Carboxyhemoglobin (0.5-1.5) % POC ABG HHb (Measured) (0.0-5.0) % ABG Methemoglobin (0.0-3.0) % Piotr Test A-a O2 Difference mm/Hg Respiratory Index Hgb O2 Saturation (95.0-98.0) % FiO2 % Inspiratory BiPAP Expiratory BiPAP Crit Value Called To Crit Value Called By Crit Value Read Back Blood Gas Notified Time Sodium (132-148) mmol/L Potassium (3.6-5.2) mmol/L Chloride (98-107) mmol/L Carbon Dioxide (22-30) mmol/L Anion Gap (10-20) BUN (9-20) mg/dL Creatinine (0.8-1.5) MG/DL Est GFR ( Amer) Est GFR (Non-Af Amer) POC Glucose (mg/dL) (65-110) mg/dL Random Glucose (75-110) mg/dL Calcium (8.6-10.4) mg/dl Total Bilirubin (0.2-1.3) mg/dL AST (17-59) U/L ALT (21-72) U/L Alkaline Phosphatase (38-126) U/L Lactate Dehydrogenase (313-618) U/L Total Creatine Kinase (55-170) U/L Total Protein (6.3-8.3) g/dL Albumin (3.5-5.0) g/dL Globulin (2.2-3.9) gm/dL Albumin/Globulin Ratio (1.0-2.1) Aldolase (<=8.1) U/L Angiotensin Convert Enz (9-67) U/L Carcinoembryonic Ag (0-3.0) ng/mL Free T4 (0.78-2.19) ng/dL TSH 3rd Generation (0.46-4.68) mIU/L Urine Color (YELLOW) Urine Clarity (Clear) Urine pH (5.0-8.0) Ur Specific [place] (1.003-1.030) Urine Protein (NEGATIVE) mg/dL Urine Glucose (UA) (Normal) mg/dL Urine Ketones (NEGATIVE) mg/dL Urine Blood (NEGATIVE) Urine Nitrate (NEGATIVE) Urine Bilirubin (NEGATIVE) Urine Urobilinogen (0.2-1.0) mg/dL Ur Leukocyte Esterase (Negative) Jluis/uL Urine WBC (Auto) (0-5) /hpf Urine RBC (Auto) (0-3) /hpf Urine Bacteria (<OCC) Broad Casts (0-1) /lpf ALICIA 6 Profile (NEGATIVE) Acetylchol Rcpt Bind Ab <0.30 <0.30 (<=0.30) nmol/L HIV 1&2 Antibody Screen (NEGATIVE) Influenza Typ A,B (EIA) (NEGATIVE) Laboratory Results - last 24 hr 09/18/16 09/18/16 09/19/16 07:08 10:19 08:26 WBC RBC Hgb Hct MCV MCH MCHC RDW Plt Count MPV Neut % (Auto) Lymph % (Auto) [place] % (Auto) Eos % (Auto) Baso % (Auto) Neut # Lymph # [place] # Eos # Baso # Neutrophils % (Manual) Lymphocytes % (Manual) Monocytes % (Manual) Platelet Estimate RBC Morphology Puncture Site pCO2 pO2 HCO3 ABG pH ABG Total CO2 ABG O2 Saturation ABG Base Excess ABG Hemoglobin ABG Carboxyhemoglobin POC ABG HHb (Measured) ABG Methemoglobin Piotr Test A-a O2 Difference Respiratory Index Hgb O2 Saturation FiO2 Inspiratory BiPAP Expiratory BiPAP Crit Value Called To Crit Value Called By Crit Value Read Back Blood Gas Notified Time Sodium Potassium Chloride Carbon Dioxide Anion Gap BUN Creatinine Est GFR ( Amer) Est GFR (Non-Af Amer) POC Glucose (mg/dL) Random Glucose Calcium Total Bilirubin AST ALT Alkaline Phosphatase Lactate Dehydrogenase Total Creatine Kinase Total Protein Albumin Globulin Albumin/Globulin Ratio Aldolase Angiotensin Convert Enz <7 L Carcinoembryonic Ag Free T4 TSH 3rd Generation Urine Color Urine Clarity Urine pH Ur Specific [place] Urine Protein Urine Glucose (UA) Urine Ketones Urine Blood Urine Nitrate Urine Bilirubin Urine Urobilinogen Ur Leukocyte Esterase Urine WBC (Auto) Urine RBC (Auto) Urine Bacteria Broad Casts ALICIA 6 Profile Acetylchol Rcpt Bind Ab <0.30 <0.30 HIV 1&2 Antibody Screen Influenza Typ A,B (EIA) 09/20/16 09/20/16 09/20/16 06:12 16:24 16:24 WBC RBC Hgb Hct MCV MCH MCHC RDW Plt Count MPV Neut % (Auto) Lymph % (Auto) [place] % (Auto) Eos % (Auto) Baso % (Auto) Neut # Lymph # [place] # Eos # Baso # Neutrophils % (Manual) Lymphocytes % (Manual) Monocytes % (Manual) Platelet Estimate RBC Morphology Puncture Site pCO2 pO2 HCO3 ABG pH ABG Total CO2 ABG O2 Saturation ABG Base Excess ABG Hemoglobin ABG Carboxyhemoglobin POC ABG HHb (Measured) ABG Methemoglobin Piotr Test A-a O2 Difference Respiratory Index Hgb O2 Saturation FiO2 Inspiratory BiPAP Expiratory BiPAP Crit Value Called To Crit Value Called By Crit Value Read Back Blood Gas Notified Time Sodium Potassium Chloride Carbon Dioxide Anion Gap BUN Creatinine Est GFR ( Amer) Est GFR (Non-Af Amer) POC Glucose (mg/dL) Random Glucose Calcium Total Bilirubin AST ALT Alkaline Phosphatase Lactate Dehydrogenase Total Creatine Kinase Total Protein Albumin Globulin Albumin/Globulin Ratio Aldolase 8.0 Angiotensin Convert Enz Carcinoembryonic Ag Free T4 TSH 3rd Generation Urine Color Yellow Urine Clarity Clear Urine pH 5.0 Ur Specific [place] 1.034 H Urine Protein 1+ H Urine Glucose (UA) 1+ H Urine Ketones Negative Urine Blood Negative Urine Nitrate Negative Urine Bilirubin Negative Urine Urobilinogen 4.0 Ur Leukocyte Esterase Neg Urine WBC (Auto) 1 Urine RBC (Auto) 10 H Urine Bacteria Rare Broad Casts 1 ALICIA 6 Profile Negative Acetylchol Rcpt Bind Ab HIV 1&2 Antibody Screen Influenza Typ A,B (EIA) Negative for flu a/b 09/20/16 09/20/16 09/21/16 16:58 21:26 05:32 WBC RBC Hgb Hct MCV MCH MCHC RDW Plt Count MPV Neut % (Auto) Lymph % (Auto) [place] % (Auto) Eos % (Auto) Baso % (Auto) Neut # Lymph # [place] # Eos # Baso # Neutrophils % (Manual) Lymphocytes % (Manual) Monocytes % (Manual) Platelet Estimate RBC Morphology Puncture Site R rad pCO2 81 H* pO2 80 HCO3 37.8 H ABG pH 7.36 ABG Total CO2 48.3 H ABG O2 Saturation 96.7 ABG Base Excess 16.6 H ABG Hemoglobin 12.0 ABG Carboxyhemoglobin 1.3 POC ABG HHb (Measured) 3.2 ABG Methemoglobin 0.7 Piotr Test Pos A-a O2 Difference 33.0 Respiratory Index 0.4 Hgb O2 Saturation 94.8 L FiO2 30.0 Inspiratory BiPAP 10 Expiratory BiPAP 5 Crit Value Called To Miles wong rn Crit Value Called By Aury berry rt Crit Value Read Back Y Blood Gas Notified Time 540 Sodium Potassium Chloride Carbon Dioxide Anion Gap BUN Creatinine Est GFR ( Amer) Est GFR (Non-Af Amer) POC Glucose (mg/dL) 196 H 236 H Random Glucose Calcium Total Bilirubin AST ALT Alkaline Phosphatase Lactate Dehydrogenase Total Creatine Kinase Total Protein Albumin Globulin Albumin/Globulin Ratio Aldolase Angiotensin Convert Enz Carcinoembryonic Ag Free T4 TSH 3rd Generation Urine Color Urine Clarity Urine pH Ur Specific [place] Urine Protein Urine Glucose (UA) Urine Ketones Urine Blood Urine Nitrate Urine Bilirubin Urine Urobilinogen Ur Leukocyte Esterase Urine WBC (Auto) Urine RBC (Auto) Urine Bacteria Broad Casts ALICIA 6 Profile Acetylchol Rcpt Bind Ab HIV 1&2 Antibody Screen Influenza Typ A,B (EIA) 09/21/16 09/21/16 09/21/16 06:33 06:33 06:33 WBC RBC Hgb Hct MCV MCH MCHC RDW Plt Count MPV Neut % (Auto) Lymph % (Auto) [place] % (Auto) Eos % (Auto) Baso % (Auto) Neut # Lymph # [place] # Eos # Baso # Neutrophils % (Manual) Lymphocytes % (Manual) Monocytes % (Manual) Platelet Estimate RBC Morphology Puncture Site pCO2 pO2 HCO3 ABG pH ABG Total CO2 ABG O2 Saturation ABG Base Excess ABG Hemoglobin ABG Carboxyhemoglobin POC ABG HHb (Measured) ABG Methemoglobin Piotr Test A-a O2 Difference Respiratory Index Hgb O2 Saturation FiO2 Inspiratory BiPAP Expiratory BiPAP Crit Value Called To Crit Value Called By Crit Value Read Back Blood Gas Notified Time Sodium 138 Potassium 4.4 Chloride 93 L Carbon Dioxide Anion Gap 9 L BUN 21 H Creatinine 0.6 L Est GFR ( Amer) > 60 Est GFR (Non-Af Amer) > 60 POC Glucose (mg/dL) Random Glucose 119 H Calcium 8.2 L Total Bilirubin 0.5 AST 16 L ALT 26 Alkaline Phosphatase 52 Lactate Dehydrogenase Total Creatine Kinase Total Protein 5.9 L Albumin 3.2 L Globulin 2.7 Albumin/Globulin Ratio 1.2 Aldolase Angiotensin Convert Enz Carcinoembryonic Ag Free T4 1.01 TSH 3rd Generation 0.19 L Urine Color Urine Clarity Urine pH Ur Specific [place] Urine Protein Urine Glucose (UA) Urine Ketones Urine Blood Urine Nitrate Urine Bilirubin Urine Urobilinogen Ur Leukocyte Esterase Urine WBC (Auto) Urine RBC (Auto) Urine Bacteria Broad Casts ALICIA 6 Profile Acetylchol Rcpt Bind Ab HIV 1&2 Antibody Screen Negative Influenza Typ A,B (EIA) 09/21/16 09/21/16 09/21/16 06:36 07:16 07:54 WBC 14.4 H RBC 3.83 L Hgb 11.4 L Hct 35.9 MCV 93.6 MCH 29.7 MCHC 31.7 L RDW 14.1 Plt Count 162 MPV 9.8 Neut % (Auto) 94.6 H Lymph % (Auto) 2.6 L [place] % (Auto) 2.7 Eos % (Auto) 0.0 Baso % (Auto) 0.1 Neut # 13.6 H Lymph # 0.4 L [place] # 0.4 Eos # 0.0 Baso # 0.0 Neutrophils % (Manual) 95 H Lymphocytes % (Manual) 4 L Monocytes % (Manual) 1 Platelet Estimate Normal RBC Morphology Normal Puncture Site pCO2 pO2 HCO3 ABG pH ABG Total CO2 ABG O2 Saturation ABG Base Excess ABG Hemoglobin ABG Carboxyhemoglobin POC ABG HHb (Measured) ABG Methemoglobin Piotr Test A-a O2 Difference Respiratory Index Hgb O2 Saturation FiO2 Inspiratory BiPAP Expiratory BiPAP Crit Value Called To Crit Value Called By Crit Value Read Back Blood Gas Notified Time Sodium Potassium Chloride Carbon Dioxide Anion Gap BUN Creatinine Est GFR ( Amer) Est GFR (Non-Af Amer) POC Glucose (mg/dL) 127 H Random Glucose Calcium Total Bilirubin AST ALT Alkaline Phosphatase Lactate Dehydrogenase 389 Total Creatine Kinase 22 L Total Protein Albumin Globulin Albumin/Globulin Ratio Aldolase Angiotensin Convert Enz Carcinoembryonic Ag 1.9 Free T4 TSH 3rd Generation 0.20 L Urine Color Urine Clarity Urine pH Ur Specific [place] Urine Protein Urine Glucose (UA) Urine Ketones Urine Blood Urine Nitrate Urine Bilirubin Urine Urobilinogen Ur Leukocyte Esterase Urine WBC (Auto) Urine RBC (Auto) Urine Bacteria Broad Casts ALICIA 6 Profile Acetylchol Rcpt Bind Ab HIV 1&2 Antibody Screen Influenza Typ A,B (EIA) 09/21/16 09/21/16 11:30 16:02 WBC RBC Hgb Hct MCV MCH MCHC RDW Plt Count MPV Neut % (Auto) Lymph % (Auto) [place] % (Auto) Eos % (Auto) Baso % (Auto) Neut # Lymph # [place] # Eos # Baso # Neutrophils % (Manual) Lymphocytes % (Manual) Monocytes % (Manual) Platelet Estimate RBC Morphology Puncture Site pCO2 pO2 HCO3 ABG pH ABG Total CO2 ABG O2 Saturation ABG Base Excess ABG Hemoglobin ABG Carboxyhemoglobin POC ABG HHb (Measured) ABG Methemoglobin Piotr Test A-a O2 Difference Respiratory Index Hgb O2 Saturation FiO2 Inspiratory BiPAP Expiratory BiPAP Crit Value Called To Crit Value Called By Crit Value Read Back Blood Gas Notified Time Sodium Potassium Chloride Carbon Dioxide Anion Gap BUN Creatinine Est GFR ( Amer) Est GFR (Non-Af Amer) POC Glucose (mg/dL) 239 H 185 H Random Glucose Calcium Total Bilirubin AST ALT Alkaline Phosphatase Lactate Dehydrogenase Total Creatine Kinase Total Protein Albumin Globulin Albumin/Globulin Ratio Aldolase Angiotensin Convert Enz Carcinoembryonic Ag Free T4 TSH 3rd Generation Urine Color Urine Clarity Urine pH Ur Specific [place] Urine Protein Urine Glucose (UA) Urine Ketones Urine Blood Urine Nitrate Urine Bilirubin Urine Urobilinogen Ur Leukocyte Esterase Urine WBC (Auto) Urine RBC (Auto) Urine Bacteria Broad Casts ALICIA 6 Profile Acetylchol Rcpt Bind Ab HIV 1&2 Antibody Screen Influenza Typ A,B (EIA) Fingerstick Blood Sugar Results: 239 Review of Systems - Review of Systems All systems: reviewed and no additional remarkable complaints except Critical Care Progress Note - Nutrition Nutrition: Nutrition Category Date Time Status Heart Healthy Diet [DIET] Diets 09/19/16 Dinner Active Assessment/Plan (1) Acute respiratory failure with hypoxia and hypercarbia Assessment and plan: 66-year-old male with no past medical history who presented with acute respiratory failure requiring intubation. Patient is now extubated but still has problems with hypercarbia and low tidal volumes, requiring intermittent BiPAP. Neuro: Alert and oriented 3. Obtaining MRI of brain and cervical spine to assess for upper and lower motor neuron lesions, she may be affecting patient's respiratory status. Antibody negative for myasthenia gravis. Pulm: Acute respiratory failure with hypercarbia, still requiring intermittent BiPAP. Start tapering IV steroids. CV: Hemodynamically stable Hem: No acute issues Renal: No acute issues, urine output within normal limits, will monitor Endo: Hyperglycemia secondary to steroids, regular insulin sliding scale coverage. GI: Heart healthy diet ID: No acute issues DVT proph - Lovenox GI proph - Protonix Code status - full code patient is clinically stable for downgrade to telemetry floors. Should continue BiPAP twice a day. Crtical Care Time spent 35 minutes Multi-disciplinary rounds were performed with house staff, nursing, speech therapy, respiratory therapy, pharmacy and nutrition with integrated input from the primary team/attending and other consulting services. The documented time is cumulative and includes review of patient data/exams/labs/chart review and examination of the patient on rounds and throughout the day; time is exclusive of any procedures or teaching time. Current Visit: Yes Status: Acute
[2016-09-21] MEDS ORDERED: MethylPREDNISolone 40 mg Vial IVP SCH (16:45)
[2016-09-22] MEDS: Albuterol-Ipratrop 3 mg / 0.5 (3 ml) UD INH SCH ×4 (01:03→19:58)
[2016-09-22] MEDS: MethylPREDNISolone 40 mg Vial IVP SCH ×2 (01:30→13:19)
[2016-09-22 07:08] VITALS: RESP 20
[2016-09-22] MEDS: (Novolin R) Insulin Human Regular 100 units/ml vial SC SCH ×4 (07:39→22:23)
[2016-09-22 08:59] LABS: TOTAL PSA 2.1 ng/mL (<=4.0)
[2016-09-22] MEDS: Enoxaparin 40 mg Syringe SC SCH (09:51)
--- NOTE | 2016-09-22 14:29 | CP.PCM.PN ---
Subjective - Date & Time of Evaluation Date of Evaluation: 09/22/16 Time of Evaluation: 14:28 - Subjective Subjective: PT ON TELEMETRY BREATHING BETTER VS STABLE MRI NO NEW FINDINGS CONT. BIPAP AND IV AB Objective - Vital Signs/Intake and Output Vital Signs (last 24 hours): Temp Pulse Resp BP Pulse Ox 98.8 F 103 H 20 132/81 99 09/22/16 07:07 09/22/16 09:00 09/22/16 07:07 09/22/16 07:07 09/22/16 07:07 - Medications Medications: Current Medications Albuterol/Ipratropium (Duoneb 3 Mg/0.5 Mg (3 Ml) Ud) 3 ml INH RQ6 [facility] Last Admin: 09/22/16 13:30 Dose: 3 ml Albuterol/Ipratropium (Duoneb 3 Mg/0.5 Mg (3 Ml) Ud) 3 ml INH RQ2 PRN PRN Reason: Shortness of Breath Enoxaparin Sodium (Lovenox) 40 mg SC DAILY [facility] Last Admin: 09/22/16 09:51 Dose: 40 mg Ceftriaxone Sodium (Rocephin 2 Gm Ivpb) 2 gm in 100 mls @ 200 mls/hr IVPB Q24H [facility] Last Admin: 09/21/16 16:16 Dose: 200 mls/hr Insulin Human Regular (Novolin R) 0 unit SC ACHS [facility] PRN Reason: Protocol Last Admin: 09/22/16 12:01 Dose: Not Given Methylprednisolone (Solu-Medrol) 40 mg IVP Q12H [facility] Last Admin: 09/22/16 13:19 Dose: 40 mg Pantoprazole Sodium (Protonix Inj) 40 mg IVP DAILY [facility] Last Admin: 09/22/16 09:51 Dose: 40 mg - Labs Labs: 09/21/16 06:36 09/21/16 06:33 PT 14.6 SECONDS (9.7-12.2) H 09/19/16 05:50 INR 1.3 09/19/16 05:50 APTT 30 SECONDS (21-34) 09/19/16 05:50
[2016-09-22] MEDS: cefTRIAXone 2 GM IN NS 2 GM/100 ML BAG IVPB SCH (14:48)
--- NOTE | 2016-09-22 14:48 | RAD ---
PROCEDURE: CHEST RADIOGRAPH, 1 VIEW HISTORY: COPD COMPARISON: 09/19/2016. FINDINGS: There has been interval extubation. LUNGS: The lungs are clear. PLEURA: No pneumothorax or pleural fluid seen. CARDIOVASCULAR: Normal. OSSEOUS STRUCTURES: No significant abnormalities. VISUALIZED UPPER ABDOMEN: Normal. OTHER FINDINGS: None. IMPRESSION: No active pulmonary disease.
--- NOTE | 2016-09-22 18:38 | CP.PCM.PN ---
Subjective - Date & Time of Evaluation Date of Evaluation: 09/22/16 Time of Evaluation: 18:38 - Subjective Subjective: AFEBRILE, APPEARS COMFORTABLE. DENIES SHORTNESS OF BREATH. DENIES COUGH. 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 CHEST X-RAY 09/22 NO ACTIVE DISEASE Objective - Vital Signs/Intake and Output Vital Signs (last 24 hours): Temp Pulse Resp BP Pulse Ox 98.3 F 101 H 20 120/75 96 09/22/16 15:15 09/22/16 15:30 09/22/16 15:15 09/22/16 15:15 09/22/16 15:15 - Medications Medications: Current Medications Albuterol/Ipratropium (Duoneb 3 Mg/0.5 Mg (3 Ml) Ud) 3 ml INH RQ6 [facility] Last Admin: 09/22/16 13:30 Dose: 3 ml Albuterol/Ipratropium (Duoneb 3 Mg/0.5 Mg (3 Ml) Ud) 3 ml INH RQ2 PRN PRN Reason: Shortness of Breath Enoxaparin Sodium (Lovenox) 40 mg SC DAILY [facility] Last Admin: 09/22/16 09:51 Dose: 40 mg Ceftriaxone Sodium (Rocephin 2 Gm Ivpb) 2 gm in 100 mls @ 200 mls/hr IVPB Q24H [facility] Last Admin: 09/22/16 14:48 Dose: 200 mls/hr Insulin Human Regular (Novolin R) 0 unit SC ACHS [facility] PRN Reason: Protocol Last Admin: 09/22/16 18:28 Dose: 2 unit Methylprednisolone (Solu-Medrol) 40 mg IVP Q12H [facility] Last Admin: 09/22/16 13:19 Dose: 40 mg Pantoprazole Sodium (Protonix Inj) 40 mg IVP DAILY [facility] Last Admin: 09/22/16 09:51 Dose: 40 mg - Labs Labs: 09/21/16 06:36 09/21/16 06:33 PT 14.6 SECONDS (9.7-12.2) H 09/19/16 05:50 INR 1.3 09/19/16 05:50 APTT 30 SECONDS (21-34) 09/19/16 05:50 - Constitutional Appears: No Acute Distress, Cachectic, Chronically Ill - Head Exam Head Exam: NORMAL INSPECTION - Eye Exam Eye Exam: EOMI, PERRL - ENT Exam ENT Exam: Normal Oropharynx - Neck Exam Neck Exam: Normal Inspection - Respiratory Exam Respiratory Exam: Clear to Ausculation Bilateral - Cardiovascular Exam Cardiovascular Exam: REGULAR RHYTHM, +S1, +S2 - GI/Abdominal Exam GI & Abdominal Exam: Soft, Normal Bowel Sounds. absent: Organomegaly - Extremities Exam Extremities Exam: Normal Capillary Refill. absent: Calf Tenderness, Pedal Edema - Neurological Exam Neurological Exam: Awake, CN II-XII Intact, Oriented x3, Reflexes Normal - Psychiatric Exam Psychiatric exam: Normal Mood - Skin Skin Exam: Normal Color, Warm Assessment and Plan (1) Leukocytosis Assessment & Plan: R/O SEPSIS R/O MPD VS STEROIDS ON IV ROCEPHIN 2 G ONCE A DAY DAILY 09/20/16 W/U IN PROGRESS. Status: Acute (2) Acute respiratory failure with hypoxia and hypercarbia Assessment & Plan: etiology of respiratory failure and hypercarbia not clear ?PEDIATRIC INTENSIVE PHYSICIAN ETIOLOGY-MOTOR NEURON DISEASE /MS / ? POLYMYOSITIS. R/O OCCULT MALIGNANCY ( WEIGHT LOSS >20LBS ) Status: Acute (3) Hypercarbia Status: Acute (4) Hypoxia Status: Acute (5) Bronchitis Status: Acute
[2016-09-22 19:33] LABS: VGCC ANTIBODY ASSAY <30 pmol/L (<30)
[2016-09-23] MEDS: Albuterol-Ipratrop 3 mg / 0.5 (3 ml) UD INH SCH ×3 (01:38→14:05)
[2016-09-23] MEDS: MethylPREDNISolone 40 mg Vial IVP SCH ×2 (02:18→12:46)
[2016-09-23 08:42] LABS: HEMATOCRIT 39.5 % (35.0-51.0); LYMPH # 0.4 K/uL (1.0-4.3); LYMPH % 4.5 % (20.0-40.0); MEAN CELL VOLUME 93.2 fL (80.0-94.0); MEAN CORPUSCULAR HEMOGLOBIN 29.7 pg (27.0-31.0); MEAN CORPUSCULAR HGB CONC 31.8 g/dL (33.0-37.0); MEAN PLATELET VOLUME 9.5 fL (7.2-11.7); MONO # 0.2 K/uL (0.0-0.8); MONO % 2.1 % (0.0-10.0); PLATELET COUNT 206 K/uL (130-400); RED CELL DISTRIBUTION WIDTH 14.1 % (11.5-14.5); WHITE BLOOD COUNT 8.3 K/uL (4.8-10.8)
[2016-09-23] MEDS: (Novolin R) Insulin Human Regular 100 units/ml vial SC SCH ×4 (08:44→22:00)
[2016-09-23 08:47] LABS: CHLORIDE 90 mmol/L (98-107)
[2016-09-23 08:48] LABS: POTASSIUM 4.3 mmol/L (3.6-5.2); SODIUM 137 mmol/L (132-148)
[2016-09-23 08:50] LABS: ALB/GLOB RATIO 1.2 (1.0-2.1); ALKALINE PHOSPHATASE 58 U/L (38-126); ALT/SGPT 63 U/L (21-72); AST/SGOT 35 U/L (17-59); BILIRUBIN,TOTAL 0.9 mg/dL (0.2-1.3); BLOOD UREA NITROGEN 17 mg/dL (9-20); CARBON DIOXIDE 39 mmol/L (22-30); GFR AFRICAN-AMERICAN > 60; TOTAL PROTEIN 6.3 g/dL (6.3-8.3)
[2016-09-23 08:51] LABS: CALCIUM 8.6 mg/dl (8.6-10.4); GLUCOSE,RANDOM 151 mg/dL (75-110)
[2016-09-23] MEDS: Enoxaparin 40 mg Syringe SC SCH (09:38)
[2016-09-23 10:18] LABS: NEUTROPHIL 96 % (50-75); TOTAL CELLS COUNTED 100
--- NOTE | 2016-09-23 14:26 | CP.PCM.PN ---
Subjective - Date & Time of Evaluation Date of Evaluation: 09/23/16 Time of Evaluation: 14:25 - Subjective Subjective: PT ON TELEMETRY BREATHING BETTER VS STABLE MRI NO NEW FINDINGS CONT. BIPAP AND IV AB D/W PT AND FAMILY MAY NEED BIPAP AT HOME Objective - Vital Signs/Intake and Output Vital Signs (last 24 hours): Temp Pulse Resp BP Pulse Ox 98.7 F 75 20 134/80 94 L 09/23/16 07:00 09/23/16 08:00 09/23/16 07:00 09/23/16 07:00 09/23/16 07:00 - Medications Medications: Current Medications Albuterol/Ipratropium (Duoneb 3 Mg/0.5 Mg (3 Ml) Ud) 3 ml INH RQ6 [facility] Last Admin: 09/23/16 14:05 Dose: 3 ml Enoxaparin Sodium (Lovenox) 40 mg SC DAILY [facility] Last Admin: 09/23/16 09:38 Dose: 40 mg Ceftriaxone Sodium (Rocephin 2 Gm Ivpb) 2 gm in 100 mls @ 200 mls/hr IVPB Q24H [facility] Last Admin: 09/22/16 14:48 Dose: 200 mls/hr Insulin Human Regular (Novolin R) 0 unit SC ACHS [facility] PRN Reason: Protocol Last Admin: 09/23/16 12:46 Dose: 2 unit Methylprednisolone (Solu-Medrol) 40 mg IVP Q12H [facility] Last Admin: 09/23/16 12:46 Dose: 40 mg Pantoprazole Sodium (Protonix Inj) 40 mg IVP DAILY [facility] Last Admin: 09/23/16 09:39 Dose: 40 mg - Labs Labs: 09/23/16 08:22 09/23/16 08:22 PT 14.6 SECONDS (9.7-12.2) H 09/19/16 05:50 INR 1.3 09/19/16 05:50 APTT 30 SECONDS (21-34) 09/19/16 05:50
[2016-09-23] MEDS: cefTRIAXone 2 GM IN NS 2 GM/100 ML BAG IVPB SCH (15:05)
[2016-09-24] MEDS: MethylPREDNISolone 40 mg Vial IVP SCH ×2 (02:57→14:02)
[2016-09-24 06:33] LABS: HEMATOCRIT 43.2 % (35.0-51.0); LYMPH # 0.5 K/uL (1.0-4.3); MEAN CELL VOLUME 92.6 fL (80.0-94.0); MEAN CORPUSCULAR HEMOGLOBIN 29.9 pg (27.0-31.0); MEAN CORPUSCULAR HGB CONC 32.2 g/dL (33.0-37.0); MEAN PLATELET VOLUME 9.2 fL (7.2-11.7); MONO # 0.3 K/uL (0.0-0.8); MONO % 2.8 % (0.0-10.0); PLATELET COUNT 266 K/uL (130-400); WHITE BLOOD COUNT 10.7 K/uL (4.8-10.8)
[2016-09-24 07:01] LABS: CHLORIDE 92 mmol/L (98-107); SODIUM 135 mmol/L (132-148)
[2016-09-24 07:02] LABS: POTASSIUM 4.2 mmol/L (3.6-5.2)
[2016-09-24 07:04] LABS: ALB/GLOB RATIO 1.2 (1.0-2.1); ALKALINE PHOSPHATASE 67 U/L (38-126); AST/SGOT 25 U/L (17-59); BLOOD UREA NITROGEN 15 mg/dL (9-20); CARBON DIOXIDE 35 mmol/L (22-30); GFR AFRICAN-AMERICAN > 60; TOTAL PROTEIN 7.1 g/dL (6.3-8.3)
[2016-09-24 07:05] LABS: ALT/SGPT 66 U/L (21-72); CALCIUM 8.9 mg/dl (8.6-10.4); GLUCOSE,RANDOM 153 mg/dL (75-110)
--- NOTE | 2016-09-24 07:51 | PN ---
DATE: 09/24/2016 NEUROLOGICAL PROBLEM: Spinal stenosis. PHYSICAL EXAMINATION: VITAL SIGNS: Blood pressure 138/93, mean arterial pressure of 108, respiratory rate 16, temperature 98.3, pulse rate 91, regular. NEUROLOGIC: The patient is very comfortable sitting in the chair. No ptosis. Extraocular movements are normal on his right side, still left fasciculation noted over the right proximal muscle groups. Deep tendon reflexes asymmetric. Plantars are mute. WORKUP: 1. MRI of the brain consistent with small vessel disease. 2. MRI of the cervical spine consistent with bilateral C5-C6 region foraminal stenosis with separate d disk. This all explaining his existing fasciculation. Further workup is in progress. The patient is medically stable. The patient can be discharged and should have followup visit as an outpatient. The patient definitely needs electromyography to rule in or to rule out motor neuron dis ease. Patient to follow workup and can be followed as an outpatient. Jose Messina MD cc: [id number] TT: 09/24/2016 07:50:43 Confirmation # [id number] Dictation # [id number] [email or web address]
[2016-09-24] MEDS: (Novolin R) Insulin Human Regular 100 units/ml vial SC SCH ×4 (08:07→22:47)
[2016-09-24 09:16] LABS: NEUTROPHIL 89 % (50-75); TOTAL CELLS COUNTED 100
[2016-09-24] MEDS: Enoxaparin 40 mg Syringe SC SCH (10:02)
--- NOTE | 2016-09-24 12:43 | CP.PCM.PN ---
Subjective - Date & Time of Evaluation Date of Evaluation: 09/24/16 Time of Evaluation: 12:41 - Subjective Subjective: AFEBRILE ON INTERMITTENT BIPAP LYMPHOCYTE PANEL LOW D/W ID MAY NEED BIPAP HOME Objective - Vital Signs/Intake and Output Vital Signs (last 24 hours): Temp Pulse Resp BP Pulse Ox 98.2 F 100 H 20 127/90 96 09/24/16 07:00 09/24/16 08:00 09/24/16 07:00 09/24/16 07:00 09/24/16 07:00 Intake and Output: 09/24/16 09/24/16 11:59 23:59 Output Total 1000 Balance -1000 - Medications Medications: Current Medications Enoxaparin Sodium (Lovenox) 40 mg SC DAILY [facility] Last Admin: 09/24/16 10:02 Dose: 40 mg Ceftriaxone Sodium (Rocephin 2 Gm Ivpb) 2 gm in 100 mls @ 200 mls/hr IVPB Q24H [facility] Last Admin: 09/23/16 15:05 Dose: 200 mls/hr Insulin Human Regular (Novolin R) 0 unit SC ACHS [facility] PRN Reason: Protocol Last Admin: 09/24/16 12:12 Dose: Not Given Methylprednisolone (Solu-Medrol) 40 mg IVP Q12H [facility] Last Admin: 09/24/16 02:57 Dose: 40 mg Pantoprazole Sodium (Protonix Inj) 40 mg IVP DAILY [facility] Last Admin: 09/24/16 10:01 Dose: 40 mg - Labs Labs: 09/24/16 06:19 09/24/16 06:19 PT 14.6 SECONDS (9.7-12.2) H 09/19/16 05:50 INR 1.3 09/19/16 05:50 APTT 30 SECONDS (21-34) 09/19/16 05:50
--- NOTE | 2016-09-24 12:51 | CP.PCM.PN ---
Subjective - Date & Time of Evaluation Date of Evaluation: 09/24/16 Time of Evaluation: 12:51 - Subjective Subjective: AFEBRILE, OFFERS NO NEW COMPLAINTS. LABS REVIEWED ; CD4 LYMPHOCYTES 97UG/ML LOW CD4/CD8 RATIOS N. PT TO GO HOME ON BIPAP PER PMD. Objective - Vital Signs/Intake and Output Vital Signs (last 24 hours): Temp Pulse Resp BP Pulse Ox 98.2 F 100 H 20 127/90 96 09/24/16 07:00 09/24/16 08:00 09/24/16 07:00 09/24/16 07:00 09/24/16 07:00 Intake and Output: 09/24/16 09/24/16 06:59 18:59 Output Total 1000 Balance -1000 - Medications Medications: Current Medications Enoxaparin Sodium (Lovenox) 40 mg SC DAILY [facility] Last Admin: 09/24/16 10:02 Dose: 40 mg Ceftriaxone Sodium (Rocephin 2 Gm Ivpb) 2 gm in 100 mls @ 200 mls/hr IVPB Q24H [facility] Last Admin: 09/23/16 15:05 Dose: 200 mls/hr Insulin Human Regular (Novolin R) 0 unit SC ACHS [facility] PRN Reason: Protocol Last Admin: 09/24/16 12:12 Dose: Not Given Methylprednisolone (Solu-Medrol) 40 mg IVP Q12H [facility] Last Admin: 09/24/16 02:57 Dose: 40 mg Pantoprazole Sodium (Protonix Inj) 40 mg IVP DAILY [facility] Last Admin: 09/24/16 10:01 Dose: 40 mg - Labs Labs: 09/24/16 06:19 09/24/16 06:19 PT 14.6 SECONDS (9.7-12.2) H 09/19/16 05:50 INR 1.3 09/19/16 05:50 APTT 30 SECONDS (21-34) 09/19/16 05:50 - Constitutional Appears: No Acute Distress - Eye Exam Eye Exam: EOMI, PERRL Additional comments: LT EYE PTOSIS SEC. TO OLD INJURY /SURGERY. - ENT Exam ENT Exam: Normal Oropharynx - Neck Exam Neck Exam: Normal Inspection - Respiratory Exam Respiratory Exam: Decreased Breath Sounds, Clear to Ausculation Bilateral - Cardiovascular Exam Cardiovascular Exam: REGULAR RHYTHM, +S1, +S2 - GI/Abdominal Exam GI & Abdominal Exam: Soft, Normal Bowel Sounds. absent: Organomegaly - Extremities Exam Extremities Exam: Normal Capillary Refill. absent: Calf Tenderness, Pedal Edema - Neurological Exam Neurological Exam: Awake, CN II-XII Intact, Normal Gait, Oriented x3, Reflexes Normal - Psychiatric Exam Psychiatric exam: Normal Mood - Skin Skin Exam: Normal Color, Warm Assessment and Plan (1) Leukocytosis Assessment & Plan: ON IV ROCEPHIN 2 G ONCE A DAY DAILY 09/20/16 W/U IN PROGRESS. AWAITING LYME SEROLOGY. Status: Acute (2) Acute respiratory failure with hypoxia and hypercarbia Assessment & Plan: PT PRESENTLY STABLE, WILL NEED BIPAP AT HOME HS . Status: Acute (3) Hypercarbia Status: Acute (4) Hypoxia Status: Acute (5) Bronchitis Status: Acute
[2016-09-24] MEDS ORDERED: Magnesium Hydroxide Susp 30 ml UD PO ONE (15:09)
[2016-09-24] MEDS: cefTRIAXone 2 GM IN NS 2 GM/100 ML BAG IVPB SCH (15:11)
[2016-09-24 17:45] LABS: LYME IGM NEGATIVE (NEGATIVE)
[2016-09-24 17:49] LABS: LYME IGG NEGATIVE (NEGATIVE)
[2016-09-25] MEDS: MethylPREDNISolone 40 mg Vial IVP SCH ×2 (02:00→13:14)
[2016-09-25 07:16] LABS: BASO % 0.1 % (0.0-2.0); HEMATOCRIT 44.6 % (35.0-51.0); LYMPH # 0.4 K/uL (1.0-4.3); LYMPH % 3.5 % (20.0-40.0); MEAN CELL VOLUME 92.5 fL (80.0-94.0); MEAN CORPUSCULAR HEMOGLOBIN 29.9 pg (27.0-31.0); MEAN CORPUSCULAR HGB CONC 32.3 g/dL (33.0-37.0); MEAN PLATELET VOLUME 9.1 fL (7.2-11.7); MONO # 0.3 K/uL (0.0-0.8); MONO % 2.4 % (0.0-10.0); PLATELET COUNT 282 K/uL (130-400); RED CELL DISTRIBUTION WIDTH 13.9 % (11.5-14.5); WHITE BLOOD COUNT 10.9 K/uL (4.8-10.8)
[2016-09-25] MEDS: (Novolin R) Insulin Human Regular 100 units/ml vial SC SCH ×2 (08:11→12:44)
--- NOTE | 2016-09-25 08:12 | PN ---
DATE: 09/25/2016 NEUROLOGICAL PROBLEM: Cervical polyradiculopathy. PHYSICAL EXAMINATION VITAL SIGNS: Blood pressure 134/74, mean arterial pressure of 94, respiratory rate 16, temperature 9 7.8, pulse rate 102. NEUROLOGIC: The patient is comfortable, lying down. He is ambulatory as well. Speech is clear. Th e patient does not show any symptomatic complaint, no symptoms at present. WORKUP: Collagen vascular disease workup is negative. Anti-____ antibody negative. Voltage gated c alcium channel receptor as well as acetylcholine receptor antibodies are all within normal limits. T he patient does have a CD4 decreased. HIV is nonreactive. Lyme disease, negative. RECOMMENDATIONS: When medically stable, the patient can be discharged and should have followup visit with me to do electromyography and nerve conduction study to rule out atypical motor neuron disease. Jose Messina MD cc: [id number] TT: 09/25/2016 08:11:34 Confirmation # [id number] Dictation # [id number] [email or web address]
[2016-09-25 08:33] LABS: LYME DISEASE SCREEN <0.90 index
[2016-09-25 08:43] LABS: NEUTROPHIL 93 % (50-75); TOTAL CELLS COUNTED 100
[2016-09-25 08:49] LABS: CHLORIDE 97 mmol/L (98-107)
[2016-09-25 08:50] LABS: POTASSIUM 4.6 mmol/L (3.6-5.2); SODIUM 138 mmol/L (132-148)
[2016-09-25 08:52] LABS: ALB/GLOB RATIO 1.1 (1.0-2.1); AST/SGOT 38 U/L (17-59); BILIRUBIN,TOTAL 0.9 mg/dL (0.2-1.3); BLOOD UREA NITROGEN 23 mg/dL (9-20); CARBON DIOXIDE 36 mmol/L (22-30); GFR AFRICAN-AMERICAN > 60; TOTAL PROTEIN 6.8 g/dL (6.3-8.3)
[2016-09-25 08:53] LABS: ALKALINE PHOSPHATASE 57 U/L (38-126); ALT/SGPT 68 U/L (21-72); GLUCOSE,RANDOM 164 mg/dL (75-110)
[2016-09-25] MEDS: Enoxaparin 40 mg Syringe SC SCH (09:59)
--- NOTE | 2016-09-25 13:15 | CP.PCM.DIS ---
Provider - Provider Date of Admission: 09/17/16 20:49 Attending physician: Ramon Leal MD Time Spent in preparation of Discharge (in minutes): 35 Hospital Course - Lab Results Lab Results: Micro Results 09/20/16 16:30 Blood-Venous Blood Culture - Preliminary NO GROWTH AFTER 4 DAYS 09/20/16 16:30 Blood-Venous Blood Culture - Preliminary NO GROWTH AFTER 4 DAYS 09/20/16 16:30 Urine Urine Culture - Final No Growth (<1,000 CFU/ML) 09/20/16 16:30 Throat Group A Strep Throat Culture - Final NO BETA STREP GROUP A ISOLATED. Most Recent Lab Values WBC 10.9 K/uL (4.8-10.8) H 09/25/16 07:03 RBC 4.82 Mil/uL (4.40-5.90) 09/25/16 07:03 Hgb 14.4 g/dL (12.0-18.0) 09/25/16 07:03 Hct 44.6 % (35.0-51.0) 09/25/16 07:03 MCV 92.5 fL (80.0-94.0) 09/25/16 07:03 MCH 29.9 pg (27.0-31.0) 09/25/16 07:03 MCHC 32.3 g/dL (33.0-37.0) L 09/25/16 07:03 RDW 13.9 % (11.5-14.5) 09/25/16 07:03 Plt Count 282 K/uL (130-400) 09/25/16 07:03 MPV 9.1 fL (7.2-11.7) 09/25/16 07:03 Neut % (Auto) 94.0 % (50.0-75.0) H 09/25/16 07:03 Lymph % (Auto) 3.5 % (20.0-40.0) L 09/25/16 07:03 [place] % (Auto) 2.4 % (0.0-10.0) 09/25/16 07:03 Eos % (Auto) 0.0 % (0.0-4.0) 09/25/16 07:03 Baso % (Auto) 0.1 % (0.0-2.0) 09/25/16 07:03 Neut # 10.2 K/uL (1.8-7.0) H 09/25/16 07:03 Lymph # 0.4 K/uL (1.0-4.3) L 09/25/16 07:03 [place] # 0.3 K/uL (0.0-0.8) 09/25/16 07:03 Eos # 0.0 K/uL (0.0-0.7) 09/25/16 07:03 Baso # 0.0 K/uL (0.0-0.2) 09/25/16 07:03 Neutrophils % (Manual) 93 % (50-75) H 09/25/16 07:03 Band Neutrophils % 1 % (0-2) 09/23/16 08:22 Lymphocytes % (Manual) 5 % (20-40) L 09/25/16 07:03 Monocytes % (Manual) 2 % (0-10) 09/25/16 07:03 Toxic Granulation Present 09/20/16 06:12 Platelet Estimate Normal (NORMAL) 09/25/16 07:03 Large Platelets Present 09/20/16 06:12 RBC Morphology Normal 09/25/16 07:03 ESR 3 mm/hr (0-15) 09/18/16 06:29 PT 14.6 SECONDS (9.7-12.2) H 09/19/16 05:50 INR 1.3 09/19/16 05:50 APTT 30 SECONDS (21-34) 09/19/16 05:50 D-Dimer, Quantitative < 200 ng/mlDDU (0-243) 09/17/16 15:13 Puncture Site R rad 09/21/16 05:32 pCO2 81 mm/Hg (35-45) H* 09/21/16 05:32 pO2 80 mm/Hg (80-100) 09/21/16 05:32 HCO3 37.8 mmol/L (21-28) H 09/21/16 05:32 ABG pH 7.36 (7.35-7.45) 09/21/16 05:32 ABG Total CO2 48.3 mmol/L (22-28) H 09/21/16 05:32 ABG O2 Saturation 96.7 % (95-98) 09/21/16 05:32 ABG Base Excess 16.6 mmol/L (-2.0-3.0) H 09/21/16 05:32 ABG Hemoglobin 12.0 g/dL (11.7-17.4) 09/21/16 05:32 ABG Carboxyhemoglobin 1.3 % (0.5-1.5) 09/21/16 05:32 POC ABG HHb (Measured) 3.2 % (0.0-5.0) 09/21/16 05:32 ABG Methemoglobin 0.7 % (0.0-3.0) 09/21/16 05:32 Piotr Test Pos 09/21/16 05:32 ABG Potassium 4.2 mmol/L (3.6-5.2) 09/17/16 21:00 VBG pH 7.23 (7.32-7.43) L 09/17/16 15:25 VBG pCO2 112 mmHg (40-60) H* 09/17/16 15:25 VBG HCO3 35.7 mmol/L 09/17/16 15:25 VBG Total CO2 50.3 mmol/L (22-28) H 09/17/16 15:25 VBG O2 Sat (Calc) 90.9 % (40-65) H 09/17/16 15:25 VBG Base Excess 14.2 mmol/L (0.0-2.0) H 09/17/16 15:25 VBG Potassium 4.2 mmol/L (3.6-5.2) 09/17/16 15:25 A-a O2 Difference 33.0 mm/Hg 09/21/16 05:32 Respiratory Index 0.4 09/21/16 05:32 Hgb O2 Saturation 94.8 % (95.0-98.0) L 09/21/16 05:32 Sodium 135.0 mmol/l (132-148) 09/17/16 21:00 Chloride 98.0 mmol/L (98-107) 09/17/16 21:00 Glucose 103 mg/dl (75-110) 09/17/16 21:00 Lactate 0.3 mmol/L (0.7-2.1) L 09/17/16 21:00 Liter Flow 3.0 09/20/16 09:37 Mechanical Rate 14 09/19/16 04:20 FiO2 30.0 % 09/21/16 05:32 Tidal Volume 450 09/19/16 04:20 PEEP 5 09/19/16 04:20 Inspiratory BiPAP 10 09/21/16 05:32 Expiratory BiPAP 5 09/21/16 05:32 Crit Value Called To Miles wong rn 09/21/16 05:32 Crit Value Called By Aury berry rt 09/21/16 05:32 Crit Value Read Back Y 09/21/16 05:32 Blood Gas Notified Time 540 09/21/16 05:32 Sodium 138 mmol/L (132-148) 09/25/16 07:03 Potassium 4.6 mmol/L (3.6-5.2) 09/25/16 07:03 Chloride 97 mmol/L (98-107) L 09/25/16 07:03 Carbon Dioxide 36 mmol/L (22-30) H 09/25/16 07:03 Anion Gap 10 (10-20) 09/25/16 07:03 BUN 23 mg/dL (9-20) H 09/25/16 07:03 Creatinine 0.6 MG/DL (0.8-1.5) L 09/25/16 07:03 Est GFR ( Amer) > 60 09/25/16 07:03 Est GFR (Non-Af Amer) > 60 09/25/16 07:03 POC Glucose (mg/dL) 151 mg/dL (65-110) H 09/25/16 11:08 Random Glucose 164 mg/dL (75-110) H 09/25/16 07:03 Calcium 9.0 mg/dl (8.6-10.4) 09/25/16 07:03 Ionized Calcium 5.4 mg/dL (4.80-5.60) 09/18/16 07:08 Phosphorus 3.6 mg/dL (2.5-4.5) 09/20/16 06:09 Magnesium 2.4 mg/dL (1.6-2.3) H 09/20/16 06:09 Total Bilirubin 0.9 mg/dL (0.2-1.3) 09/25/16 07:03 AST 38 U/L (17-59) 09/25/16 07:03 ALT 68 U/L (21-72) 09/25/16 07:03 Alkaline Phosphatase 57 U/L (38-126) 09/25/16 07:03 Lactate Dehydrogenase 389 U/L (313-618) 09/21/16 07:54 Total Creatine Kinase 22 U/L (55-170) L 09/21/16 07:54 CK-MB (Mass) 6.77 ng/mL (0.0-3.38) H 09/17/16 15:13 Troponin I < 0.0120 ng/mL (0.00-0.120) 09/17/16 15:13 C-React Prot High Sens 1.42 mg/L (1.00-3.00) 09/18/16 06:29 NT-Pro-B Natriuret Pep 22.0 pg/mL (0-900) 09/17/16 15:13 Total Protein 6.8 g/dL (6.3-8.3) 09/25/16 07:03 Albumin 3.6 g/dL (3.5-5.0) 09/25/16 07:03 Globulin 3.2 gm/dL (2.2-3.9) 09/25/16 07:03 Albumin/Globulin Ratio 1.1 (1.0-2.1) 09/25/16 07:03 [id number] 149 mg/dL (83-199) 09/19/16 05:50 Aldolase 8.0 U/L (<=8.1) 09/20/16 06:12 Angiotensin Convert Enz <7 U/L (9-67) L 09/19/16 08:26 Carcinoembryonic Ag 1.9 ng/mL (0-3.0) 09/21/16 07:54 Free PSA 0.2 ng/mL 09/21/16 07:54 % Free PSA 10 Percent (>25) L 09/21/16 07:54 Total PSA 2.1 ng/mL (<=4.0) 09/21/16 07:54 Prostate Cancer Risk 1 Percent 09/21/16 07:54 Free T4 1.01 ng/dL (0.78-2.19) 09/21/16 06:33 TSH 3rd Generation 0.20 mIU/L (0.46-4.68) L 09/21/16 07:54 Prolactin 12.8 ng/mL (3.7-17.9) 09/18/16 08:11 Plasma Cortisol PM 11.0 ug/dL (1.7-14.1) 09/17/16 20:34 Arterial Blood Potassium 4.2 mmol/L (3.6-5.2) 09/17/16 21:00 Venous Blood Potassium 4.2 mmol/L (3.6-5.2) 09/17/16 15:25 Urine Color Yellow (YELLOW) 09/20/16 16:24 Urine Clarity Clear (Clear) 09/20/16 16:24 Urine pH 5.0 (5.0-8.0) 09/20/16 16:24 Ur Specific [place] 1.034 (1.003-1.030) H 09/20/16 16:24 Urine Protein 1+ mg/dL (NEGATIVE) H 09/20/16 16:24 Urine Glucose (UA) 1+ mg/dL (Normal) H 09/20/16 16:24 Urine Ketones Negative mg/dL (NEGATIVE) 09/20/16 16:24 Urine Blood Negative (NEGATIVE) 09/20/16 16:24 Urine Nitrate Negative (NEGATIVE) 09/20/16 16:24 Urine Bilirubin Negative (NEGATIVE) 09/20/16 16:24 Urine Urobilinogen 4.0 mg/dL (0.2-1.0) 09/20/16 16:24 Ur Leukocyte Esterase Neg Jluis/uL (Negative) 09/20/16 16:24 Urine WBC (Auto) 1 /hpf (0-5) 09/20/16 16:24 Urine RBC (Auto) 10 /hpf (0-3) H 09/20/16 16:24 Urine Bacteria Rare (<OCC) 09/20/16 16:24 Broad Casts 1 /lpf (0-1) 09/20/16 16:24 Salicylates < 1.0 mg/dL 1 09/18/16 15:08 Urine Opiates Screen Negative (NEGATIVE) 09/17/16 19:01 Urine Methadone Screen Negative (NEGATIVE) 09/17/16 19:01 Ur Barbiturates Screen Negative (NEGATIVE) 09/17/16 19:01 Ur Phencyclidine Scrn Negative (NEGATIVE) 09/17/16 19:01 Ur Amphetamines Screen Negative (NEGATIVE) 09/17/16 19:01 U Benzodiazepines Scrn Negative (NEGATIVE) 09/17/16 19:01 U Oth Cocaine Metabols Negative (NEGATIVE) 09/17/16 19:01 U Cannabinoids Screen Negative (NEGATIVE) 09/17/16 19:01 Serum Immunofixation See note 09/18/16 07:08 Rheum Arthritis Panel Negative (NEGATIVE) 09/18/16 06:29 ALICIA 6 Profile Negative (NEGATIVE) 09/20/16 16:24 Anti-HU Antibody Titer TNP 09/18/16 07:08 Anti-Hu Antibody Negative (NEGATIVE) 09/18/16 07:08 Anti-Hu Ab ([place]) TNP 09/18/16 07:08 Vol[place] Ca Channel Ab <30 pmol/L (<30) 09/18/16 08:11 Striated Muscle Ab Ttr TNP 09/18/16 10:19 Striated Muscle Ab Negative (NEGATIVE) 09/18/16 10:19 Thyroperoxidase Ab <1 IU/mL (<9) 09/19/16 08:26 Acetylchol Rcpt Bind Ab <0.30 nmol/L (<=0.30) 09/18/16 10:19 Absolute Lymphs (Flow) 424 Cells/mcL (850-3900) L 09/21/16 07:54 % CD4 Cells 23 Percent (30-61) L 09/21/16 07:54 Absolute CD4 Count 97 Cells/mcL (490-1740) L 09/21/16 07:54 T-Help/Suppress Ratio 2.19 Ratio (0.86-5.00) 09/21/16 07:54 % CD8 Cells 11 Percent (12-42) L 09/21/16 07:54 Absolute CD8 Count 45 Cells/mcL (180-1170) L 09/21/16 07:54 T-Lymph Analys Comment See note 09/21/16 07:54 RPR Nonreactive (NONREACTIVE) 09/21/16 07:54 Lyme Disease Screen <0.90 index 09/19/16 08:26 Lyme Disease IgG Ab (IFA) Negative (NEGATIVE) 09/19/16 08:26 Lyme Disease IgM Ab Negative (NEGATIVE) 09/19/16 08:26 HIV 1&2 Ag/Ab, 4th Gen Nonreactive (Nonreactive) 09/21/16 07:54 HIV 1&2 Antibody Screen Negative (NEGATIVE) 09/21/16 06:33 Influenza Typ A,B (EIA) Negative for flu a/b (NEGATIVE) 09/20/16 16:24 - Hospital Course Hospital Course: PT PRESENTED TO ER WITH LETHARGY AND SOMNELENCE . INVESTIGATION REVEALED ACUTE CO2 RETENSION WITH NORMAL CXR . THERE IS NO OTHER HISTORY AVAILABLE AT THIS TIME ID/PULM/NEURO WERE CONSULTED ALL NEURO W/P NEG CT CHEST NOTHING ACUTE NO SEPSIS PT REQUIRED INTERMITTENT BIPAP AND THEN ONLY NASAL O2. PT CURRENTLY IS STABLE FOR DISCHARGE AND WILL CONT OUT PT W/U D/W Discharge Exam - Head Exam Head Exam: ATRAUMATIC, NORMAL INSPECTION, NORMOCEPHALIC Discharge Plan - Follow Up Plan Condition: STABLE Disposition: HOME/ ROUTINE
--- NOTE | 2016-09-25 13:42 | CP.PCM.PN ---
Subjective - Date & Time of Evaluation Date of Evaluation: 09/25/16 Time of Evaluation: 13:42 - Subjective Subjective: AFEBRILE. CLINICALLY STABLE. LABS . ALL W/U -VE LYME SEROLOGY -VE . DC IV ROCEPHIN, CASE DISCUSSED WITH PMD. Objective - Vital Signs/Intake and Output Vital Signs (last 24 hours): Temp Pulse Resp BP Pulse Ox 98.8 F 80 20 124/85 96 09/25/16 08:38 09/25/16 08:38 09/25/16 08:38 09/25/16 08:38 09/25/16 08:38 Intake and Output: 09/25/16 09/25/16 06:59 18:59 Output Total 200 Balance -200 - Medications Medications: Current Medications Enoxaparin Sodium (Lovenox) 40 mg SC DAILY [facility] Last Admin: 09/25/16 09:59 Dose: 40 mg Ceftriaxone Sodium (Rocephin 2 Gm Ivpb) 2 gm in 100 mls @ 200 mls/hr IVPB Q24H [facility] Last Admin: 09/24/16 15:11 Dose: 200 mls/hr Insulin Human Regular (Novolin R) 0 unit SC ACHS [facility] PRN Reason: Protocol Last Admin: 09/25/16 12:44 Dose: 1 unit Methylprednisolone (Solu-Medrol) 40 mg IVP Q12H [facility] Last Admin: 09/25/16 13:14 Dose: 40 mg Pantoprazole Sodium (Protonix Inj) 40 mg IVP DAILY [facility] Last Admin: 09/25/16 09:59 Dose: 40 mg - Labs Labs: 09/25/16 07:03 09/25/16 07:03 PT 14.6 SECONDS (9.7-12.2) H 09/19/16 05:50 INR 1.3 09/19/16 05:50 APTT 30 SECONDS (21-34) 09/19/16 05:50 - Constitutional Appears: No Acute Distress, Cachectic - Head Exam Head Exam: NORMAL INSPECTION - Eye Exam Eye Exam: EOMI, PERRL - ENT Exam ENT Exam: Normal Oropharynx - Neck Exam Neck Exam: Normal Inspection - Respiratory Exam Respiratory Exam: Clear to Ausculation Bilateral, NORMAL BREATHING PATTERN - Cardiovascular Exam Cardiovascular Exam: REGULAR RHYTHM, +S1, +S2 - GI/Abdominal Exam GI & Abdominal Exam: Soft, Normal Bowel Sounds. absent: Organomegaly - Extremities Exam Extremities Exam: Normal Capillary Refill. absent: Calf Tenderness, Pedal Edema - Neurological Exam Neurological Exam: Alert, Awake, CN II-XII Intact, Normal Gait, Oriented x3 - Psychiatric Exam Psychiatric exam: Normal Mood - Skin Skin Exam: Normal Color, Warm Assessment and Plan (1) Leukocytosis Assessment & Plan: LABS REVIEW LEUKOCYTOSIS RESOLVED. ALL CULTURES -VE TO DATE . DC IV ROCEPHIN. Status: Acute (2) Acute respiratory failure with hypoxia and hypercarbia Assessment & Plan: STABLE. ETOLOGY OF HYPERCAPNIC RESPIRATORY FAILURE /HYPERCARBIA NOT CLEAR nEURO WORKUP STILL PENDING. wILL BE FOLLOWED UP OUTPATIENT PER pmd. pATIENT TO USE bIpap AT BEDTIME AT HOME Status: Acute (3) Hypercarbia Status: Acute (4) Hypoxia Status: Acute (5) Bronchitis Status: Acute
[2016-09-25] MEDS: cefTRIAXone 2 GM IN NS 2 GM/100 ML BAG IVPB SCH (14:37)
[2016-09-25 16:15] VITALS: BP 109/73; TEMP 98.2; O2SAT 95
[2016-09-25 17:09] VITALS: PULSE 91
--- NOTE | 2016-09-25 17:25 | CP.PCM.PN ---
Subjective - Date & Time of Evaluation Date of Evaluation: 09/25/16 Time of Evaluation: 17:21 - Subjective Subjective: 66 Y/O MALE SEEN AND EXAMINED TODAY BY DR GUPTA AND DR RIVERA, PT ADMITTED WITH LEUKOCYTOSIS, ACUTE RESP FAILURE, HYPERCARBIA, HYPOXIA, BRONCHITIS, PT CLEARED FOR D/C PER DR GUPTA AND DR RIVERA TODAY, NEB TX RX GIVEN PER DR RIVERA, FOLLOW UP WITH DR RIVERA IN THE OFFICE IN 2-3 DAYS, RETURN TO ED IF ANY WORSENING S/S, AGREE, VERBALIZE UNDERSTANDING Objective - Vital Signs/Intake and Output Vital Signs (last 24 hours): Temp Pulse Resp BP Pulse Ox 98.2 F 91 H 20 109/73 95 09/25/16 16:00 09/25/16 16:00 09/25/16 16:00 09/25/16 16:00 09/25/16 16:00 Intake and Output: 09/25/16 09/25/16 06:59 18:59 Intake Total 580 Output Total 200 Balance -200 580 - Medications Medications: Current Medications Enoxaparin Sodium (Lovenox) 40 mg SC DAILY [facility] Last Admin: 09/25/16 09:59 Dose: 40 mg Insulin Human Regular (Novolin R) 0 unit SC ACHS [facility] PRN Reason: Protocol Last Admin: 09/25/16 12:44 Dose: 1 unit Methylprednisolone (Solu-Medrol) 40 mg IVP Q12H [facility] Last Admin: 09/25/16 13:14 Dose: 40 mg Pantoprazole Sodium (Protonix Inj) 40 mg IVP DAILY [facility] Last Admin: 09/25/16 09:59 Dose: 40 mg - Labs Labs: 09/25/16 07:03 09/25/16 07:03 PT 14.6 SECONDS (9.7-12.2) H 09/19/16 05:50 INR 1.3 09/19/16 05:50 APTT 30 SECONDS (21-34) 09/19/16 05:50
[2016-09-25 20:43] LABS: VGCC ANTIBODY ASSAY <30 pmol/L (<30)
== END 2016-09-25 17:55 | disposition home or self-care (01) | DRG 208 ==
LOC: C.ER 13:36 → C.9I 20:49 → C.6T 09-22 07:03
PROVIDERS: ADMIT Internal Medicine Cardiovascular Disease; ATTEND Internal Medicine Cardiovascular Disease
PROC: 5A1945Z Respiratory Ventilation, 24-96 Consecutive Hours (ICD-10-PCS; principal; 2016-09-17)
PROC: 0BH17EZ Insertion of Endotracheal Airway into Trachea, Via Natural or Artificial Opening (ICD-10-PCS; 2016-09-17)
PROC: 5A09457 Assistance with Respiratory Ventilation, 24-96 Consecutive Hours, Continuous Positive Airway Pressure (ICD-10-PCS; 2016-09-21)
DX: J96.02 Acute respiratory failure with hypercapnia (principal); E87.4 Mixed disorder of acid-base balance; R64 Cachexia; J98.11 Atelectasis; J96.01 Acute respiratory failure with hypoxia; J40 Bronchitis, not specified as acute or chronic; D72.829 Elevated white blood cell count, unspecified; Z91.19 Patient's noncompliance with other medical treatment and regimen